=== PATIENT | male | born 1965 | race Caucasian/White ===

== ENCOUNTER 2019-04-08 08:20 | Outpatient (RCR) | payer BC, SELFPAY | END 2019-05-07 | LOC: GILAB 08:20 | PROVIDERS: Family Provider Family Medicine; Visit Provider Nurse Practitioner Family | DX: M86.8X8 Other osteomyelitis, other site (principal) | CPT/HCPCS: 36415; 36592; 80202 ×2; 96365; 96366; J2001; J2250; J2704; J3010; J3370 ×2; J7050 ×2 ==

== ENCOUNTER → 2020-11-19 07:37 | Outpatient (BNVA) | payer BC, SELFPAY | PROVIDERS: Family Provider Family Medicine; PCP Family Medicine; Referring Provider Physician Assistant; Visit Provider Urology | DX: Z12.5 Encounter for screening for malignant neoplasm of prostate (principal); R39.9 Unspecified symptoms and signs involving the genitourinary system | CPT/HCPCS: G0103 ==

== ENCOUNTER → 2021-04-18 15:56 | Outpatient (BNVA) | payer BC, SELFPAY | PROVIDERS: Family Provider Family Medicine; PCP Family Medicine; Visit Provider Podiatrist Foot & Ankle Surgery | DX: M79.673 Pain in unspecified foot (principal); L97.522 Non-pressure chronic ulcer of other part of left foot with fat layer exposed; M21.612 Bunion of left foot | CPT/HCPCS: 73630; 87070; 87075; 87205 ==

== ENCOUNTER → 2021-05-21 15:38 | Outpatient (BNVA) | payer BC, SELFPAY | PROVIDERS: Family Provider Family Medicine; PCP Family Medicine; Visit Provider Podiatrist Foot & Ankle Surgery | DX: E11.621 Type 2 diabetes mellitus with foot ulcer (principal); L97.523 Non-pressure chronic ulcer of other part of left foot with necrosis of muscle; N18.9 Chronic kidney disease, unspecified; E11.22 Type 2 diabetes mellitus with diabetic chronic kidney disease; E11.42 Type 2 diabetes mellitus with diabetic polyneuropathy | CPT/HCPCS: 73630 ==

== ENCOUNTER → 2021-06-04 13:43 | Outpatient (BNVA) | payer BC, SELFPAY | PROVIDERS: Family Provider Family Medicine; PCP Family Medicine; Visit Provider Podiatrist Foot & Ankle Surgery | DX: M79.673 Pain in unspecified foot (principal); L97.522 Non-pressure chronic ulcer of other part of left foot with fat layer exposed; L97.523 Non-pressure chronic ulcer of other part of left foot with necrosis of muscle | CPT/HCPCS: 73630 ==

== ENCOUNTER 2021-06-12 16:46 | Observation (INO) | payer BC, SELFPAY ==
[2021-06-12] VITALS (7 sets, daily range): BP systolic 197–231; BP diastolic 63–78; PULSE 73–97; RESP 14–22; TEMP 36.9; O2SAT 93–95; BMI 42.5
--- NOTE | 2021-06-12 17:39 | ED_ITS ---
HPI - General Adult General: Chief complaint: General Medical Stated complaint: High BP/Rapid Heart Rate Time Seen by Provider: 06/12/21 17:39 History of Present Illness: HPI narrative: Mr. Wagner is a 55-year-old gentleman with history of hypertension and CKD who presents the emergency department due to palpitations and high blood pressure. He reports seeing his primary care provider and had his hydralazine increased from 50 mg 3 times daily to 100 mg 3 times daily. After only 1 or 2 doses of the increased dosage the patient noticed palpitations. This is a fluttering sensation in his chest without associated pain, shortness of breath, lightheadedness, or dizziness. He also noticed that his blood pressure was higher than normal. He again contacted the physician's office and they added minoxidil. Despite this addition he continues to have symptoms. Intensity of symptoms is moderate. There are no specific provoking factors that he can identify. The course has remained largely unchanged. No other specific changes in health, medications, stress, lifestyle, provoking, exacerbating, or alleviating factors identified. Review of Systems General: Reports: 10 or more systems reviewed and unremarkable except in HPI and below PFS ED PFSH: Medical History (Updated 06/15/21 @ 00:01 by ) BPH (benign prostatic hyperplasia) Chronic kidney disease Chronic ulcer of left foot with fat layer exposed CKD (chronic kidney disease) per patient attributed to vancomycin toxicity, no kidney biopsy Diabetes Diabetic peripheral neuropathy associated with type 2 diabetes mellitus HIV disease Hypertension Mixed hyperlipidemia Obesity Surgical History (Updated 06/13/21 @ 06:01 by Magalys Marie MD) S/P ureteral stent placement Family History Father Hypertension Mother Hypertension Brother Cancer NON HODGKINS Other CAD (coronary artery disease) Diabetes Social History Alcohol intake: never Marital status: Current occupational status: employed Physical Exam Narrative: EXAM NARRATIVE: GENERAL/CONSTITUTIONAL - well-appearing. No acute distress. Obese Eyes - PERRL, no conjunctival injection ENMT - Atraumatic external nose and ears. Moist mucous membranes NECK - supple. trachea midline CARDIOVASCULAR - regular rate and rhythm. Peripheral pulses 2+ and equal RESPIRATORY -clear to auscultation bilaterally. No retractions or accessory muscle use. ABDOMEN/GI - Nontender/Nondistended. No tenderness to percussion or evidence of peritonitis MSK - Extremities without obvious deformity or tenderness to palpation SKIN - Warm, Dry NEURO - alert and appropriately oriented. Moves all extremities equally. PSYCH - Appropriate mood and affect Course ED course: - Patient was seen and evaluated by me at bedside - Patient placed on cardiac monitors, IV access obtained - Initial evaluation notable for no acute distress, nontoxic appearance. No ectopy noted on associate store leader. - Labs notable for no evidence of endorgan dysfunction -Despite multiple doses of IV labetalol there was almost no improvement in patient's blood pressure - Upon serial reexamination after treatment the patient was similar - Based on patient history, evaluation, labs, and imaging as interpreted the most likely cause of the patient's condition is unclear. The patient has multi drug refractory hypertension that is now symptomatic with palpitations. -Hospitalist service contacted and agreed admit the patient. - Patient was admitted without further deterioration or significant events. Vital Signs: Vital signs: Vital Signs Temperature 97.9 F 06/14/21 13:03 Pulse Rate 59 L 06/14/21 13:03 Respiratory Rate 19 H 06/14/21 13:03 Blood Pressure 138/54 06/14/21 13:03 Pulse Oximetry 92 06/14/21 13:03 MDM - General Adult Medical Records: Attestation: I reviewed the patient's medical records. Lab Data: Attestation: I reviewed the patient's lab results. Labs: Lab Results 06/12/21 06/12/21 06/12/21 18:25 18:25 18:25 WBC 11.0 10^3/uL H 10 ^3/uL (4.0-10.0) RBC 4.82 10^6/uL 10^6 /uL (4.1-5.3) Hgb 12.2 g/dL g/dL (11.7-16.6) Hct 37.8 % L % (42.0-52.0) MCV 78.4 fl L fl (80-94) MCH 25.3 pg L pg (28.0-34.0) MCHC 32.3 g/dL g/dL (30.0-36.0) RDW 16.3 % H % (12.1-15.1) Plt Count 265 10^3/cmm 10^3 /cmm (130-400) MPV 10.4 fL fL (7.4-10.4) Neut % (Auto) 67.8 % % Lymph % (Auto) 24.3 % % Lane % (Auto) 5.0 % % Eos % (Auto) 2.0 % % Baso % (Auto) 0.3 % % Neut # (Auto) 7.43 10^3/uL 10^3 /uL (1.8-7.7) Lymph # (Auto) 2.7 10^3/uL 10^3/ uL (0.8-4.8) Lane # (Auto) 0.6 10^3/uL 10^3/ uL (0.2-0.9) Eos # (Auto) 0.2 10^3/uL 10^3/ uL (0.0-0.8) Baso # (Auto) 0.0 10^3/uL 10^3/ uL (0.0-0.1) Nucleated RBC % (a uto) 0 % % Nucleated RBCs # 0.0 /100WBC /100W BC Sodium 136 mmol/L mmol/L (136-145) Potassium 4.4 mmol/L mmol/L (3.5-5.1) Chloride 97 mmol/L L mmol/ L (98-107) Carbon Dioxide 27 mmol/L mmol/L (22-29) Anion Gap 16.4 (5-19) BUN 63 mg/dL H mg/dL (6-20) Creatinine 2.9 mg/dL H mg/dL (0.7-1.2) GFR Calculation 22.6 mL/min L mL/ min (90-130) Glucose 206 mg/dL H mg/dL (65-115) Calculated Osmolal ity 306 mOsm/kg H mOs m/kg (285-295) Calcium 9.1 mg/dL mg/dL (8.5-10.5) Magnesium 1.9 mg/dL mg/dL (1.7-2.3) Total Bilirubin 0.6 mg/dL mg/dL (0.15-1.2) AST 12 U/L U/L (0-40) ALT 17 U/L U/L (0-41) Alkaline Phosphata se 87 IU/L IU/L (40-130) Troponin T Baselin e 54 ng/L H ng/L (0-15) Troponin T 120 Min [place] Delta Troponin T Troponin T Hi Sens 6Hr Troponin T Hi Sens 6Hr Delta NT-Pro-B Natriuret Pep 570 pg/mL H pg/mL (0-125) Total Protein 7.4 g/dL g/dL (6.6-8.7) Albumin 4.0 g/dL g/dL (3.5-5.2) Globulin 3.4 g/dL g/dL (1.3-4.6) TSH 3.95 uIU/mL uIU/m L (0.27-4.20) 06/12/21 06/12/21 06/13/21 20:29 21:02 00:12 WBC RBC Hgb Hct MCV MCH MCHC RDW Plt Count MPV Neut % (Auto) Lymph % (Auto) Lane % (Auto) Eos % (Auto) Baso % (Auto) Neut # (Auto) Lymph # (Auto) Lane # (Auto) Eos # (Auto) Baso # (Auto) Nucleated RBC % (a uto) Nucleated RBCs # Sodium Potassium Chloride Carbon Dioxide Anion Gap BUN Creatinine GFR Calculation Glucose Calculated Osmolal ity Calcium Magnesium Total Bilirubin AST ALT Alkaline Phosphata se Troponin T Baselin e Troponin T 120 Min [place] Cancelled 53.47 ng/L H ng/L (0-15) Delta Troponin T Cancelled -0.53 ABS# L ABS# (0-10) Troponin T Hi Sens 6Hr 48.77 ng/L H ng/L (0-15) Troponin T Hi Sens 6Hr Delta -5.23 ng/L L ng/L (0-12) NT-Pro-B Natriuret Pep Total Protein Albumin Globulin TSH EKG Data^: EKG 1: Attestation: I personally reviewed and interpreted this EKG as follows: EKG interpretation date: 06/12/21 EKG interpretation time: 18:23 Interpretation: Twelve-lead EKG shows a regular rhythm at a rate of 84 WA interval 157, QRS duration 96, QTc 407 Normal axis Interpretation: Sinus rhythm, nonspecific ST segment abnormalities. Computer generated interpretation: Chest X-Ray 06/12/21 17:52 IMPRESSION: No acute findings. Radiation Dose CTDIVOL = (mGy): DLP = (mGy-cm) EKG 2: Attestation: I personally reviewed and interpreted this EKG as follows: EKG interpretation date: 06/12/21 EKG interpretation time: 22:33 Interpretation: Twelve-lead EKG shows a regular sinus rhythm at a rate of 77 WA interval 172, QRS duration 97, QTc 408. Normal axis. Interpretation: Sinus rhythm. Nonspecific ST segment abnormalities. Similar to prior. Computer generated interpretation: Chest X-Ray 06/12/21 17:52 IMPRESSION: No acute findings. Radiation Dose CTDIVOL = (mGy): DLP = (mGy-cm) Discharge Plan Discharge Patient Disposition: Admitted As Inpatient Admit Provider: Magalys Marie Condition: Stable Discharge Diet: Cardiac and Diabetic Discharge Activity: Increase activity as tolerated Coding Level of Care Code ED Delivery Truck Driver for Sulemang Dejon
--- NOTE | 2021-06-12 17:52 | XRR_ITS ---
PROCEDURE INFORMATION: Exam: XR Chest Exam date and time: 06/12/2021 5:52 PM Age: 55 years old Clinical indication: Tachypnea; Additional info: Palpatations TECHNIQUE: Imaging protocol: XR of the chest. Views: 1 view. COMPARISON: CT abdomen pelvis wo con [id number] 08/16/2019 4:14 PM FINDINGS: Lungs: Unremarkable. No consolidation. Pleural spaces: Unremarkable. No pleural effusion. No pneumothorax. Heart/Mediastinum: Unremarkable. No cardiomegaly. Bones/joints: Unremarkable. XR/XR chest 1V portable [id number] IMPRESSION: No acute findings. Radiation Dose CTDIVOL = (mGy): DLP = (mGy-cm)
--- NOTE | 2021-06-12 17:53 | ECG_ITS ---
[facility] Test Date: 2021-06-12 Pat Name: Say Wagner Department: Room: Gender: Male Medical Lab Director: : 1965 Requested By: Erik Patten Order Number: [id number] Beckie MD: Qi Dyson M.D. Measurements Intervals [place] Rate: 84 P: 56 MA: 157 QRS: 69 QRSD: 96 T: 20 QT: 366 QTc: 433 Interpretive Statements SINUS RHYTHM INCOMPLETE RIGHT BUNDLE BRANCH BLOCK [90+ ms QRS DURATION, TERMINAL R IN V1/V2, 40+ ms S IN I/aVL/V4/V5/V6] Compared to ECG 03/19/2019 18:00:15 Incomplete right bundle-branch block now present Sinus bradycardia no longer present T-wave abnormality no longer present Possible ischemia no longer present Electronically Signed On 06-12-2021 23:02:52 CDT by Qi Dyson M.D. [id number]
[2021-06-12] MEDS: labetalol 5 mg/mL SDV 20mL 10 MG IVP ×3 (18:54→22:45)
[2021-06-12 19:03] LABS: Basophils % 0.3 %; Eosinophils # 0.2 10^3/uL (0.0-0.8); Hematocrit 37.8 % (42.0-52.0); Hemoglobin 12.2 g/dL (11.7-16.6); Lymphocytes # 2.7 10^3/uL (0.8-4.8); Lymphocytes % 24.3 %; Mean Corpuscular HGB Conc 32.3 g/dL (30.0-36.0); Mean Corpuscular Hemoglobin 25.3 pg (28.0-34.0); Mean Corpuscular Volume 78.4 fl (80-94); Mean Platelet Volume 10.4 fL (7.4-10.4); Monocytes # 0.6 10^3/uL (0.2-0.9); Neutrophils # 7.43 10^3/uL (1.8-7.7); Neutrophils % 67.8 %; Nucleated Red Blood Cells % 0 %; Platelet Count 265 10^3/cmm (130-400); Red Blood Count 4.82 10^6/uL (4.1-5.3); Red Cell Distribution Width 16.3 % (12.1-15.1)
[2021-06-12 19:30] LABS: Troponin(5th) Baseline 54 ng/L (0-15)
[2021-06-12 19:36] LABS: Alanine Aminotransferase 17 U/L (0-41); Alkaline Phosphatase 87 IU/L (40-130); Anion Gap 16.4 (5-19); Aspartate Amino Transferase 12 U/L (0-40); Blood Urea Nitrogen 63 mg/dL (6-20); Calcium 9.1 mg/dL (8.5-10.5); Carbon Dioxide 27 mmol/L (22-29); Chloride 97 mmol/L (98-107); Globulin 3.4 g/dL (1.3-4.6); Glomerular Filtration Rate 22.6 mL/min (90-130); Glucose 206 mg/dL (65-115); Magnesium 1.9 mg/dL (1.7-2.3); Osmolality Calculated 306 mOsm/kg (285-295); Potassium 4.4 mmol/L (3.5-5.1); Sodium 136 mmol/L (136-145); Total Bilirubin 0.6 mg/dL (0.15-1.2); Total Protein 7.4 g/dL (6.6-8.7)
[2021-06-12 19:42] LABS: NT Pro B Type Natriuretic Pept 570 pg/mL (0-125); Thyroid Stimulating Hormone 3.95 uIU/mL (0.27-4.20)
--- NOTE | 2021-06-12 19:53 | ECG_ITS ---
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 Measurements Intervals [place] Rate: 86 P: 47 WV: 132 QRS: 53 QRSD: 98 T: 18 QT: 360 QTc: 433 Interpretive Statements SINUS RHYTHM INCOMPLETE RIGHT BUNDLE BRANCH BLOCK [90+ ms QRS DURATION, TERMINAL R IN V1/V2, 40+ ms S IN I/aVL/V4/V5/V6] Poor R wave progression INTERPRETATION BASED ON A DEFAULT AGE OF 40 YEARS Compared to ECG 03/19/2019 18:00:15 Incomplete right bundle-branch block now present Sinus bradycardia no longer present T-wave abnormality no longer present Possible ischemia no longer present Electronically Signed On 06-12-2021 23:07:57 CDT by Qi Dyson M.D. [id number]
[2021-06-12 21:41] LABS: Troponin 5 2HR 53.47 ng/L (0-15)
[2021-06-12 21:50] LABS: Troponin 5 2HR Delta -0.53 ABS# (0-10)
--- NOTE | 2021-06-12 23:53 | ECG_ITS ---
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 Measurements Intervals [place] Rate: 77 P: 12 HI: 172 QRS: 68 QRSD: 97 T: 13 QT: 376 QTc: 427 Interpretive Statements SINUS RHYTHM INCOMPLETE RIGHT BUNDLE BRANCH BLOCK [90+ ms QRS DURATION, TERMINAL R IN V1/V2, 40+ ms S IN I/aVL/V4/V5/V6] Compared to ECG 06/12/2021 18:20:37 No significant changes Electronically Signed On 06-12-2021 23:10:18 CDT by Qi Dyson M.D. [id number]
[2021-06-13] VITALS (55 sets, daily range): BP systolic 151–226; BP diastolic 61–93; PULSE 55–81; RESP 16–22; TEMP 36.3–36.9; O2SAT 88–97
[2021-06-13] MEDS: nitroglycerin 1 gm/inch oint Pkt 1 INCH TOPICAL (00:19)
--- NOTE | 2021-06-13 00:27 | PM.HP ---
Providers/Chief Complaint Admitting Physician: Magalys Marie MD Primary Care Provider: John Hernandez DO Chief Complaint: High BP/Rapid Heart Rate History of Present Illness Say Wagner is a 55 year old male with PMH HIV, undetectable VL, HTN, DM, CKD, cr at baseline 2.9, follows with nephrology KEVIN Kat at [facility]. Presented to ER yesterday after being sent from podiatry clinic (following for diabetic left foot) where he was noted to have persistently elevated BP >212 sytolic. At ER SBP continued to be 210-230 systolic range. He also reported palpitations and vague chest discomfort with onset of symptoms approximately 10-14 days ago when his medications were changed due to uncontrolled HTN. Hydralazine was increased from 50mg TID to 100mg TID 2 weeks ago and po minoxidil was added one week ago for refractory HTN. Denies chest pain per se but reports some discomfort and palpitations. EKG is with sinus rhythm with incomplete RBBB, EKG series without significant delta. He has received labetalol 10mg IVP x 3 in ED without any improvement in BP. Review of Systems General: Reports: 10 or more systems reviewed and unremarkable except in HPI and below Const: Denies: fever(s), chills or body aches Eyes: Denies: change in vision, blurry vision or photophobia ENMT: Reports: hoarseness; Denies: throat pain, enlarged tonsils, odynophagia or nasal congestion Card: Denies: chest pain, palpitations, irregular heart rhythm, edema, swelling of feet/ankles, lightheadedness, pre-syncope, dyspnea on exertion or orthopnea Resp: Denies: dyspnea, productive cough, non-productive cough, wheezing, stridor, pain on inspiration, change in phlegm color, hemoptysis or chest congestion GI: Denies: abdominal pain, nausea, vomiting, hematemesis, coffee ground emesis, dysphagia, heartburn, diarrhea, constipation, GI cramping, change in stool character, hematochezia or melena : Denies: flank pain, dysuria, urinary frequency, urinary urgency, urinary hesitancy or hematuria Musc: Denies: neck pain, back pain, extremity pain, joint swelling, joint warmth or deformity Neuro: Denies: headache(s), numbness in extremities, weakness in extremities, sensory changes, difficulty walking, frequent falls, dizziness, vertigo, behavioral changes, Slurred speech present or seizure-like activity Psych: Denies: anxiety, depression, suicidal ideation or homicidal ideation Endo: Denies: polyuria, polydipsia, tired all the time, cold intolerance or hot flashes Misael/Lymph: Denies: easy bruising or easy bleeding Medications/Allergies Home Medications Medication Instructions Recorded Confirmed Last Taken Type amlodipine 10 mg tablet 10 mg PO DAILY 11/19/20 06/12/21 Unknown History bictegravir 50 mg-emtricitabine 1 tab PO DAILY 11/19/20 06/12/21 Unknown History 200 mg-tenofovir alafenam 25 mg tablet cholecalciferol (vitamin D3) 125 125 mcg PO BID cap 11/19/20 06/12/21 Unknown History mcg (5,000 unit) capsule clonidine HCl 0.3 mg tablet 0.3 mg PO BID 11/19/20 06/12/21 Unknown History ferrous sulfate 325 mg (65 mg 27 mg PO DAILY tab 11/19/20 06/12/21 Unknown History iron) tablet furosemide 80 mg tablet 80 mg PO BID 11/19/20 06/12/21 Unknown History insulin detemir U-100 100 unit/mL 100 unit SUBCUT DAILY 11/19/20 06/12/21 Unknown History (3 mL) subcutaneous pen metoprolol tartrate 50 mg tablet 50 mg PO BID 11/19/20 06/12/21 Unknown History potassium chloride 10 mEq 10 meq PO DAILY 11/19/20 06/12/21 Unknown History tablet,extended release tamsulosin 0.4 mg capsule 0.4 mg PO DAILY 11/19/20 06/12/21 Unknown History hydralazine 25 mg tablet 100 mg PO TID tab 06/12/21 06/12/21 Unknown History minoxidil 10 mg tablet 5 mg PO DAILY 06/12/21 06/12/21 Unknown History Allergies Allergy/AdvReac Type Severity Reaction Status Date / Time No Known Allergies Allergy Verified 06/12/21 15:59 PFSH Acute PFSH: Medical History (Updated 06/13/21 @ 06:07 by Magalys Marie MD) BPH (benign prostatic hyperplasia) CKD (chronic kidney disease) per patient attributed to vancomycin toxicity, no kidney biopsy Diabetes HIV disease Hypertension Mixed hyperlipidemia Obesity Surgical History (Updated 06/13/21 @ 06:01 by Magalys Marie MD) S/P ureteral stent placement Family History Father Hypertension Mother Hypertension Brother Cancer NON HODGKINS Other CAD (coronary artery disease) Diabetes Social History Alcohol intake: never Marital status: Current occupational status: employed Vitals/I&O/Wt Last Vital Signs Temp 98.4 F 06/12/21 16:51 Pulse 76 06/12/21 22:30 Resp 22 H 06/12/21 22:30 BP 217/78 06/12/21 23:30 Pulse Ox 95 06/12/21 22:30 Weight last 48 hrs Weight 158.757 kg Physical Exam Narrative: EXAM NARRATIVE: General: No acute distress, AO x3 HEENT: PERRLA, pupils bilaterally equal and reactive, pallors not present Chest: Normal vesicular breath sounds, no added sounds, equal good air entry bilaterally CVS: S1-S2 regular, no murmurs, no tachycardia, no gallops, no rubs Abdomen: Soft, nontender, no organomegaly, bowel sounds present Neuro: No focal deficits, no facial deformity, AO x3, power 5/5 in all limbs Extremities: left foot in cam boot, not opened for exam, compression stocking on right leg Data : 06/12/21 18:25 06/12/21 18:25 A&P Assessment and plan (1) Hypertensive urgency: admit to CSU for hypertensive urgency no change in BP with labetalol 10mg IVP x 3 will start hydralaine 50mg now, metoprolol 50mg now, add nitrobid 1inch patch q6h If above measures fail to control BP, jose r start nicardipine drip Home medications will need readjustment Stop minoxidil, which can precipitate angina, pericarditis, volume overload Continue amlodipine 10, hydralazine at last tolerated dose of 50mg TID, metoprolol 50mg BID, clonidine 0.3mg BID, lasix 80mg BID, ADD imdur 30mg daily, latter can be titrated up depending on BP response. Status: Acute (2) Chronic kidney disease: cr at baseline Status: Acute Qualifiers: Chronic kidney disease stage: unspecified stage Qualified Code(s): N18.9 - Chronic kidney disease, unspecified Additional A&P Information HIV: continue Biktarvy Attestations Medical Necessity Statement*: observation admission, anticipate less than 48 hrs hospital stay Coding Level of Care Code Acute Senior Data Architect for g Fwd Diagnoses Hypertensive urgency I16.0 Chronic kidney disease N18.9 Chronic kidney disease stage: unspecified stage
[2021-06-13 00:38] LABS: Troponin 5 6HR 48.77 ng/L (0-15)
[2021-06-13 00:39] LABS: Troponin 5 6HR Delta -5.23 ng/L (0-12)
[2021-06-13] MEDS: metoprolol tartrate 50 mg Tablet PO ×2 (01:16→08:11)
[2021-06-13] MEDS: hyDRALAzine 50 mg Tablet PO ×4 (01:17→20:31)
[2021-06-13] MEDS: BIKTARVY 1 EACH PO ×2 (01:45→20:48)
[2021-06-13] MEDS: isosorbide mononitrate ER 30 mg Tablet PO (06:05)
[2021-06-13 06:31] LABS: Glucose Point of Care 80 mg/dL (70-110)
[2021-06-13] MEDS: FUROsemide 40 mg Tablet 80 MG PO ×2 (08:03→17:47)
[2021-06-13] MEDS: cloNIDine 0.1 mg Tablet 0.3 MG PO ×2 (08:03→17:46)
[2021-06-13] MEDS: tamsulosin 0.4 mg Capsule PO (08:04)
[2021-06-13] MEDS: amlodipine 10 mg Tablet PO (08:04)
--- NOTE | 2021-06-13 08:16 | PC.NURSE ---
Call placed to Dr. Hart regarding new order for IV hydrazine. Reported that I was preparing to give patient oral meds for BP (clonidine, amlodipine,metoprolol,hydralazine). Dr. Hart stated give oral meds, recheck BP if still elevated then give IV hydralazine in an hour.
[2021-06-13] MEDS: hyDRALAzine 20 mg/mL INJ 1 mL IVP (09:01)
--- NOTE | 2021-06-13 09:47 | PC.PHAR ---
PT STATES HE TAKES CARE OF HIS OWN MEDICATIONS-PT STATES HIS KCL WAS DCED A MONTH AGO-PT STATES HE JUST STARTED TAKING MINOXIDIL 5MG DAILY ON THU OR -EXT MED HISTORY SHOWS LEVEMIR FLEXTOUCH LAST FILLED ON 05/29/21 100 UNITS QPM INCREASE NIGHTLY BY 5 UNITS UNTIL FASTING BLOOD SUGAR LESS THAN 150 INJECT 80 UNITS Q AM MAX OF 350 UNITS DAILY-PT STATE HE USES 80 UNITS QAM AND USUALLY 160 UNITS QPM-CLONIDINE 0.3MG FILLED ON 05/27/21 90D/S FOR 2 TABS BID PT STATES HE TAKES 1 TAB IN THE AM AND 2 TABS IN THE PM-
--- NOTE | 2021-06-13 10:24 | PC.CHAP ---
Pastoral Care Encounter/Spiritual Assessment Type of Contact [x] Declined air traffic control equipment repairer visit [] Patient/Family/Request visit [] Outpatient visit [] Follow-up visit [] Physician referral [] Code/Alert [] Routine visit [] Staff referral [] Actively dying [] Patient sleeping [] Family support [] [] Out of room [] Palliative care [] [] Receiving care in room [] Pre-surgical visit [] Trauma [] Long length of stay [] ICU visit [] Other: Relational/Emotional Strength [] Patient feels connected with others/family/visitors/staff [] Distress [] Loneliness/isolation [] Abandonment Spirituality of Patient [] Person of Samantha [] Attends Mormonism of their Samantha [] Believes in Prayer [] Reads Bible or Orthodoxy materials [] There are Spiritual issues to be addressed Shipping Order Clerk Interventions [] Prayer [] Active listening [] Non-anxious presence [] Spiritual/emotional support [] Crisis/trauma care [] Spiritual counseling [] Bereavement support [] Provided bereavement packet [] Provided Bible/devotional materials [] Provided toy/stuffed animal, coloring book to patient or family member [] Provided Communion [] Anointing/Alpha [] Salvation [] Completed spiritual assessment [] Other: Impact on Illness or Injury [] Angry [] Fearful [] Anxious [] Often cries [] Exhaustion [] Unable to work [] Unable to attend mosque [] Unable to walk/stand [] Unable to read [] Unable to drive [] Unable to eat/drink [] Unable to sleep [] Unable to be with family [] Patient intubated [] Other: Summary Declined air traffic control equipment repairer visit Time spent with patient
--- NOTE | 2021-06-13 11:06 | PM.PN ---
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 Patient is stating that he was put on vancomycin for his diabetic foot ulcer management which worsen his kidney function with underlying diabetes Vitals/I&O/Wt Last Vital Signs Temp 97.6 F 06/13/21 07:21 Pulse 77 06/13/21 08:50 Resp 16 06/13/21 07:21 BP 226/90 06/13/21 08:50 Pulse Ox 92 06/13/21 07:21 06/12/21 06/13/21 06/13/21 22:59 06:59 14:59 Intake Total 1000 / 1000 Output Total 800 / 800 Balance 200 / 200 Weight last 48 hrs Weight 172.819 kg Weight 158.757 kg Physical Exam Narrative: EXAM NARRATIVE: Patient was laying comfortably in his bed when entered the room Morbidly obese male S1, S2 sinus rhythm No audible stridor or wheezing saturating well on room air Abdomen soft nondistended visceral obesity Left foot diabetic ulcer with clean base no active signs of cellulitis, borders of the wound are moist and macerated dressing was soaked with mild yellow discharge No signs of gangrene or cyanosis Awake alert Ox3 GCS 15 no neurological deficit Data : 06/12/21 18:25 06/12/21 18:25 A&P Assessment and plan (1) Hypertensive urgency: Status: Acute (2) Chronic kidney disease: Status: Acute Qualifiers: Chronic kidney disease stage: unspecified stage Qualified Code(s): N18.9 - Chronic kidney disease, unspecified (3) Diabetic peripheral neuropathy associated with type 2 diabetes mellitus: Status: Acute (4) Palpitations: Status: Acute Additional A&P Information Hypertensive urgency Creatinine seems to around baseline No chest pain Baseline troponin 54 with negative delta BNP 570 no vision changes or signs of stroke TSH 3.9 Nitropaste was removed this morning Optimize antihypertensive regimens, avoid minoxidil for now Palpitations: Patient endorsing that palpitations started with increase of hydralazine dosage which was done recently, I will hold off on increasing hydralazine dose which is also a reflex tachycardia, patient does not exhibit any typical signs of carcinoid or pheochromocytoma, does have outpatient final application reviewer, potassium is within normal range, TSH normal No active chest pain Sinus rhythm I would optimize his AV daxa blocking agent HIV: Continue HIV medication Biktarvy Full code Cardiac diet DVT prophylaxis Heparin Attestations Medical Necessity Statement*: Anticipating discharge tomorrow Time Spent in Patient Care: 16 - 35 minutes Coding Level of Care Code Acute Expeller Operator for g Fwd Diagnoses Hypertensive urgency I16.0 Chronic kidney disease N18.9 Chronic kidney disease stage: unspecified stage Diabetic peripheral neuropathy associated with type 2 diabetes mellitus E11.42 Palpitations R00.2
[2021-06-13 16:42] LABS: Glucose Point of Care 254 mg/dL (70-110)
--- NOTE | 2021-06-13 16:45 | PM.PN ---
Subjective Subjective: Interval history: Patient seen bedside for dressing change left foot ulcer. Vitals/I&O/Wt Last Vital Signs Temp 97.6 F 06/13/21 07:21 Pulse 69 06/13/21 10:30 Resp 16 06/13/21 07:21 BP 169/72 06/13/21 10:30 Pulse Ox 92 06/13/21 07:21 06/13/21 06/13/21 06/13/21 06:59 14:59 22:59 Intake Total 1000 / 1000 Output Total 800 / 800 Balance 200 / 200 Weight last 48 hrs Weight 381 lb Weight 350 lb Physical Exam Narrative: EXAM NARRATIVE: Patient is alert and oriented ?3 and in no acute distress. The following is a focused bilateral lower extremity exam. Ambulates without assistance. VASCULAR: Dorsalis pedis palpable +2 bilaterally, posterior tibial arteries +2. Capillary refill time less than 3 seconds to the distal hallux bilaterally. Calf is supple and nontender proximally and distally. NEUROLOGICAL: Protective sensation intact 0/10 sites, tested with [place] Nidia monofilament to bilateral feet. DERMATOLOGICAL: Wound subfifth metatarsal head left foot measures 2 cm x 2 cm x 0.2 cm with macerated hyperkeratotic roof and room and fibrogranular base does not probe to bone. No erythema or purulence. Does not probe to bone. MUSCULOSKELETAL: Ankle joint dorsiflexion to neutral. Muscle strength 5/5 in all 3 cardinal planes, tailor's bunion bilaterally. Data : 06/12/21 18:25 06/12/21 18:25 A&P Assessment and plan (1) Chronic kidney disease: Status: Acute Qualifiers: Chronic kidney disease stage: unspecified stage Qualified Code(s): N18.9 - Chronic kidney disease, unspecified (2) Diabetic peripheral neuropathy associated with type 2 diabetes mellitus: Status: Acute (3) Chronic ulcer of left foot with fat layer exposed: Status: Acute Additional A&P Information Wound left foot excisionally debrided down to including subcutaneous tissue and fat layer no anesthesia required secondary to neuropathy hemostasis via manual pressure, dressed with Mary, sterile 4 x 4, Kerlix and Justus wrap. Will redress tomorrow. Attestations Medical Necessity Statement*: Diabetic foot ulcer left foot Coding Level of Care Code Acute Microsoft Dynamics Manager Architect for [facility] Diagnoses Chronic kidney disease N18.9 Chronic kidney disease stage: unspecified stage Diabetic peripheral neuropathy associated with type 2 diabetes mellitus E11.42 Chronic ulcer of left foot with fat layer exposed L97.207
[2021-06-13 20:14] LABS: Glucose Point of Care 271 mg/dL (70-110)
[2021-06-13] MEDS: metoprolol tartrate 50 mg Tablet 100 MG PO (20:31)
[2021-06-14] VITALS (15 sets, daily range): BP systolic 138–203; BP diastolic 54–89; PULSE 55–69; RESP 18–19; TEMP 36.6–36.7; O2SAT 91–97
[2021-06-14 05:34] LABS: Estmated Average Glucose 249; Hemoglobin A1C 10.3 % (4.0-6.0)
[2021-06-14 05:46] LABS: Anion Gap 13.3 (5-19); Blood Urea Nitrogen 60 mg/dL (6-20); Carbon Dioxide 27 mmol/L (22-29); Chloride 102 mmol/L (98-107); Glomerular Filtration Rate 20.9 mL/min (90-130); Glucose 148 mg/dL (65-115); Osmolality Calculated 306 mOsm/kg (285-295); Potassium 4.3 mmol/L (3.5-5.1); Sodium 138 mmol/L (136-145)
[2021-06-14 06:51] LABS: Glucose Point of Care 103 mg/dL (70-110)
[2021-06-14] MEDS: tamsulosin 0.4 mg Capsule PO (08:25)
[2021-06-14] MEDS: isosorbide mononitrate ER 30 mg Tablet 60 MG PO (08:25)
[2021-06-14] MEDS: amlodipine 10 mg Tablet PO (08:26)
[2021-06-14] MEDS: acetaminophen 325 mg Tablet 650 MG PO (08:28)
[2021-06-14] MEDS: FUROsemide 40 mg Tablet 80 MG PO (08:29)
[2021-06-14] MEDS: cloNIDine 0.1 mg Tablet 0.3 MG PO (08:40)
[2021-06-14] MEDS: hyDRALAzine 50 mg Tablet PO (08:40)
[2021-06-14] MEDS: metoprolol tartrate 50 mg Tablet 100 MG PO (08:40)
[2021-06-14] MEDS: dilTIAZem ER (24HR) 120 mg Capsule PO (10:09)
--- NOTE | 2021-06-14 10:40 | PC.CHAP ---
Pastoral Care Encounter/Spiritual Assessment Type of Contact [] Declined reel assembler visit [] Patient/Family/Request visit [] Outpatient visit [] Follow-up visit [] Physician referral [] Code/Alert [x] Routine visit [] Staff referral [] Actively dying [] Patient sleeping [] Family support [] [] Out of room [] Palliative care [] [] Receiving care in room [] Pre-surgical visit [] Trauma [] Long length of stay [] ICU visit [] Other: Relational/Emotional Strength [] Patient feels connected with others/family/visitors/staff [] Distress [] Loneliness/isolation [] Abandonment Spirituality of Patient [] Person of Samantha [] Attends Presybeterian of their Samantha [] Believes in Prayer [] Reads Bible or Episcopalian materials [] There are Spiritual issues to be addressed Specialty Person Interventions [x] Prayer [x] Active listening [x] Non-anxious presence [x] Spiritual/emotional support [] Crisis/trauma care [] Spiritual counseling [] Bereavement support [] Provided bereavement packet [] Provided Bible/devotional materials [] Provided toy/stuffed animal, coloring book to patient or family member [] Provided Communion [] Anointing/[place] [] Salvation [x] Completed spiritual assessment [] Other: Impact on Illness or Injury [] Angry [] Fearful [] Anxious [] Often cries [] Exhaustion [] Unable to work [] Unable to attend caodaism [] Unable to walk/stand [] Unable to read [] Unable to drive [] Unable to eat/drink [] Unable to sleep [] Unable to be with family [] Patient intubated [] Other: Summary needing solution to issues.. waiting on doctor for more information Time spent with patient 5 min
--- NOTE | 2021-06-14 11:16 | P.DS_ITS ---
Discharge Providers Date of Admission: 06/13/21 00:17 Date of Discharge: June 14, 2021 Attending Provider at Admission: Magalys Marie MD Attending Provider at Discharge: Mt Hart MD Primary Care Provider: John Hernandez DO Diagnoses at Discharge Discharge Diagnosis (1) Chronic kidney disease: Status: Acute Qualifiers: Chronic kidney disease stage: unspecified stage Qualified Code(s): N18.9 - Chronic kidney disease, unspecified (2) Diabetic peripheral neuropathy associated with type 2 diabetes mellitus: Status: Acute (3) Chronic ulcer of left foot with fat layer exposed: Status: Acute Reason for Visit Reason for Visit: High BP/Rapid Heart Rate Hospital Course Hospital Course History of Present Illness Dr. Marie Say Wagner is a 55 year old male with PMH HIV, undetectable VL, HTN, DM, CKD, cr at baseline 2.9, follows with nephrology KEVIN Kat at [facility]. Presented to ER yesterday after being sent from podiatry clinic (following for diabetic left foot) where he was noted to have persistently elevated BP >212 sytolic. At ER SBP continued to be 210-230 systolic range. He also reported palpitations and vague chest discomfort with onset of symptoms approximately 10-14 days ago when his medications were changed due to uncontrolled HTN. Hydralazine was increased from 50mg TID to 100mg TID 2 weeks ago and po minoxidil was added one week ago for refractory HTN. Denies chest pain per se but reports some discomfort and palpitations. EKG is with sinus rhythm with incomplete RBBB, EKG series without significant delta. He has received labetalol 10mg IVP x 3 in ED without any improvement in BP Hospital course Patient was seen as follow-up next day, his antihypertensive regimen was optimized, he did not require any gtt for blood pressure control. I did tell the nurse to use cuff size 12 instead of 11 because of his arm size. Patient stated that specifically he gets palpitations whenever he takes hydralazine and recently his hydralazine dose was increased. At the time of discharge she will get clonidine, hydralazine, metoprolol, Cardizem and Lasix. Please see below for the dosages. At the time of discharge blood pressure 138/54mmhg I have asked him to follow-up with his elevator constructor helper for reevaluation regarding worsening kidney function. For his left-sided diabetic foot ulcer Dr. lEaine evaluated him as well. He recommended outpatient follow-up no need of antibiotics. He recently finished antibiotic course few days ago. Physical Exam Narrative: EXAM NARRATIVE: Patient was laying comfortably in his bed when entered the room Morbidly obese male S1, S2 sinus rhythm No audible stridor or wheezing saturating well on room air Abdomen soft nondistended visceral obesity Left foot diabetic ulcer with clean base no active signs of cellulitis, borders of the wound are moist and macerated dressing was soaked with mild yellow discharge, Wound subfifth metatarsal head left foot measures 2 cm x 2 cm x 0.2 cm with macerated hyperkeratotic roof and room and fibrogranular base does not probe to bone. No erythema or purulence. Does not probe to bone. No signs of gangrene or cyanosis Awake alert Ox3 GCS 15 no neurological deficit Discharge Data Data Completed and Pending: Completed Studies During Hospitalization Category Date Time Status XR chest 1V emerson ble [id number] Urgent Exams 06/12/21 17:52 Completed Labs from last 24 hours 06/14/21 06/14/21 06/14/21 06:47 04:30 04:30 Sodium 138 Potassium 4.3 Chloride 102 Carbon Dioxide 27 Anion Gap 13.3 BUN 60 H Creatinine 3.1 H GFR Calculation 20.9 L Glucose 148 H POC Glucose 103 Estimat Average Gl ucose 249 Hemoglobin A1c 10.3 H Calculated Osmolal ity 306 H Calcium 8.0 L 06/13/21 06/13/21 20:07 16:35 Sodium Potassium Chloride Carbon Dioxide Anion Gap BUN Creatinine GFR Calculation Glucose POC Glucose 271 H 254 H Estimat Average Gl ucose Hemoglobin A1c Calculated Osmolal ity Calcium Vitals: Last Vital Signs Temp 98.1 F 06/14/21 04:07 Pulse 69 06/14/21 09:27 Resp 18 06/14/21 04:07 BP 200/89 06/14/21 09:27 Pulse Ox 91 06/14/21 09:27 Discharge Plan Discharge Patient Disposition: Home Condition: Stable Prescriptions: New clonidine HCl 0.1 mg Tablet 0.3 mg PO BID 30 Days Qty: 180 RF: 0 metoprolol tartrate 50 mg Tablet 100 mg PO BID@0900,2100 30 Days Qty: 60 RF: 0 diltiazem HCl 120 mg Capsule,Extended Release 24hr 120 mg PO DAILY 30 Days Qty: 30 RF: 0 hydralazine 50 mg Tablet 50 mg PO TID 30 Days Qty: 90 RF: 0 Continued ferrous sulfate [FeroSul] 325 mg (65 mg iron) tablet 325 mg PO QAM RF: 0 cholecalciferol (vitamin D3) 125 mcg (5,000 unit) capsule 125 mcg PO BID RF: 0 Biktarvy 50-200-25 mg tablet 1 tab PO BEDTIME RF: 0 tamsulosin 0.4 mg capsule 0.8 mg PO QPM RF: 0 calcitriol 0.25 mcg capsule 0.25 mcg PO Q7D RF: 0 Levemir FlexTouch U-100 Insuln 100 unit/mL (3 mL) insulin pen See Rx Instructions .ROUTE .COMPLEX RF: 0 Tart Tamayo 57-437-06-75-20 mg Capsule 2 cap PO BID RF: 0 Kidney Builder 2 tab PO BID RF: 0 furosemide 80 mg tablet 80 mg PO BID 30 Days Qty: 60 RF: 0 Discontinued metoprolol tartrate 50 mg tablet 50 mg PO BID RF: 0 clonidine HCl 0.3 mg tablet See Rx Instructions .ROUTE .COMPLEX RF: 0 amlodipine 10 mg tablet 10 mg PO QAM RF: 0 hydralazine 25 mg tablet 100 mg PO TID RF: 0 minoxidil 10 mg tablet 5 mg PO DAILY RF: 0 Discharge Orders: Discharge Order (Routine); Ordered 06/14/21 Ordered By: Mt Hart Referrals: John Hernandez, [Primary Care Provider] - 1 week (You have a follow-up appointment with Dr. Hernandez on JUNE 21 at 10:10 AM. IF you need to reschedule please call the clinic. Thank You.) Discharge Diet: Cardiac and Diabetic Discharge Activity: Increase activity as tolerated Patient Instructions: Diltiazem (By mouth), Chronic Kidney Disease (DC), Hypertension (DC), Opioid Safety, Wound Care (General) Activity Restrictions/Additional Instructions: Please keep using hydralazine 50 mg 3 times a day, metoprolol 100 mg twice a day along clonidine 0.3 mg twice a day and diltiazem 120 mg once daily on top of this you are also getting Lasix 80 mg twice a day If your blood pressure stays above 150 mmHg consistently despite all these medications please follow-up with your elevator constructor helper I have held your minoxidil and amlodipine Please use blood pressure cuff size 12 Wound Care instructtions per to dressed with Mary, sterile 4 x 4, Kerlix and Justus wrap once a day. Will follow-up with him on Thursday. Discharge Attestations Time Spent in Discharge Care*: less than 30 min Quality Metrics Clinical Quality Measures During this hospital stay, did patient experience: None Coding Level of Care Code Acute [facility] note Diagnoses Chronic kidney disease N18.9 Chronic kidney disease stage: unspecified stage Diabetic peripheral neuropathy associated with type 2 diabetes mellitus E11.42 Chronic ulcer of left foot with fat layer exposed L97.522
[2021-06-14 11:39] LABS: Glucose Point of Care 231 mg/dL (70-110)
--- NOTE | 2021-06-14 13:00 | PC.NURSE ---
Discharge Note Patient discharged to home via wheelchair accompanied by . Discharge instructions reviewed with patient and/or parts counter representative. Mobile pharmacy medications and/or prescriptions provided. Belongings/home medications returned. Instructed to check BP and HR everyday at home as well as his blood sugar and keep a record of it. Instructed pt to call 911 or come back to ER when there is an increase headache, slurred speech and weakness to other side of his body. Pt verbalizes understanding.
--- NOTE | 2021-06-19 09:26 | PC.SOCIAL ---
discharge follow up call made, spoke with patient. patient is taking new medications as prescribed. patient is aware of follow up appointment with pcp. unable to complete follow up call due to patient being agitated with call.
== END 2021-06-14 14:00 | disposition home or self-care (01) ==
LOC: ER 23:54 → CSU 06-13 07:41
PROVIDERS: Admitting Provider Student in an Organized Health Care Education/Training Program; Emergency Provider Emergency Medicine; PCP Family Medicine; Visit Provider Internal Medicine
DX: E11.22 Type 2 diabetes mellitus with diabetic chronic kidney disease (principal); I12.9 Hypertensive chronic kidney disease with stage 1 through stage 4 chronic kidney disease, or unspecified chronic kidney disease; N18.9 Chronic kidney disease, unspecified; E11.42 Type 2 diabetes mellitus with diabetic polyneuropathy; L97.522 Non-pressure chronic ulcer of other part of left foot with fat layer exposed; E11.621 Type 2 diabetes mellitus with foot ulcer; Z21 Asymptomatic human immunodeficiency virus [HIV] infection status; E66.01 Morbid (severe) obesity due to excess calories; Z68.42 Body mass index [BMI] 45.0-49.9, adult; Z79.4 Long term (current) use of insulin; E78.2 Mixed hyperlipidemia; N40.0 Benign prostatic hyperplasia without lower urinary tract symptoms; Z82.49 Family history of ischemic heart disease and other diseases of the circulatory system
CPT/HCPCS: 36415; 36416; 71045; 80048; 80053; 82962; 83036; 83735; 83880; 84443; 84484; 85025; 93005; 96372; 96374; 96375; 96376; 99291; G0378; J0360; J1815; J3490

== ENCOUNTER 2021-07-15 06:09 | Emergency (ER) | payer BC, SELFPAY ==
[2021-07-15 06:15] VITALS: BP 183/83; PULSE 59; RESP 20; TEMP 36.9; O2SAT 97; BMI 49.5
--- NOTE | 2021-07-15 06:24 | XRR_ITS ---
PROCEDURE INFORMATION: Exam: XR Chest Exam date and time: 07/15/2021 6:24 AM Age: 55 years old Clinical indication: Other: No chest complaints; Patient HX: No chest compliants, leg swelling; Additional info: Dyspnea/cough TECHNIQUE: Imaging protocol: XR of the chest. Views: 1 view. COMPARISON: No relevant prior studies available. FINDINGS: Lungs: Summation densities or interstitial infiltrate right lower lung. Accentuation of right hilar bronchial margins. Pleural spaces: Unremarkable. No pleural effusion. No pneumothorax. Heart/Mediastinum: Accentuation of the cardiac silhouette which could partially be on the basis of AP technique. Bones/joints: Unremarkable. XR/XR chest 1V portable [id number] IMPRESSION: 1. Superimposed soft tissue density versus interstitial opacity right lower lobe. Correlation for any symptoms of pneumonia is required. Further follow-up of the chest is recommended to assess clearance. 2. Accentuation of right hilar bronchial margins suggestive of bronchitis. Radiation Dose CTDIVOL = (mGy): DLP = (mGy-cm)
--- NOTE | 2021-07-15 06:24 | ECG_ITS ---
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 Measurements Intervals [place] Rate: 57 P: -55 KS: 153 QRS: 37 QRSD: 96 T: 44 QT: 448 QTc: 436 Interpretive Statements ECTOPIC ATRIAL BRADYCARDIA LOW QRS VOLTAGE IN PRECORDIAL LEADS [QRS DEFLECTION < 1.0 mV IN CHEST LEADS] INCOMPLETE RIGHT BUNDLE BRANCH BLOCK [90+ ms QRS DURATION, TERMINAL R IN V1/V2, 40+ ms S IN I/aVL/V4/V5/V6] POSSIBLE ANTERIOR MYOCARDIAL INFARCTION , OF INDETERMINATE AGE [30 ms Q WAVE IN V3/V4, OR R < 0.2 mV IN V4] No previous ECG available for comparison Electronically Signed On 07-15-2021 16:45:21 AEROSPACE TECHNICIAN by Edgar Cottrell M.D. [id number] f
[2021-07-15 06:50] VITALS: BP 134/66; PULSE 53; RESP 20; TEMP 36.6; O2SAT 93
[2021-07-15 06:51] LABS: Basophils % 0.5 %; Eosinophils # 0.2 10^3/uL (0.0-0.8); Eosinophils % 2.3 %; Hemoglobin 10.1 g/dL (11.7-16.6); Lymphocytes # 1.9 10^3/uL (0.8-4.8); Lymphocytes % 29.8 %; Mean Corpuscular HGB Conc 31.6 g/dL (30.0-36.0); Mean Corpuscular Hemoglobin 25.8 pg (28.0-34.0); Mean Corpuscular Volume 81.6 fl (80-94); Mean Platelet Volume 9.5 fL (7.4-10.4); Monocytes # 0.5 10^3/uL (0.2-0.9); Monocytes % 7.2 %; Neutrophils # 3.88 10^3/uL (1.8-7.7); Neutrophils % 59.7 %; Nucleated Red Blood Cells % 0 %; Platelet Count 219 10^3/cmm (130-400); Red Blood Count 3.92 10^6/uL (4.1-5.3); Red Cell Distribution Width 16.7 % (12.1-15.1); White Blood Count 6.5 10^3/uL (4.0-10.0)
--- NOTE | 2021-07-15 07:06 | ED_ITS ---
HPI - SOB/Dyspnea General: Chief Complaint: Shortness of Breath/Dyspnea Stated Complaint: SOB Time Seen by Provider: 07/15/21 06:21 History of Present Illness: HPI Narrative: 55-year-old male presents emergency room complaining of shortness of breath and swelling in his legs. States it started over the last several days. He recently was switched from Lasix 80 mg twice daily to Bumex 2 mg twice daily. He is seen at the urology clinic. Patient is a history of renal disease. He denies history of predischarge failure coronary disease or previous stroke. He denies any chest pain at this time he states there is a swelling in his legs is gotten significantly worse. He does have some mild orthopnea as well. MD elicited complaint: shortness of breath and cough Pertinent past history: diabetes Onset (ago): day(s) Context: elevated blood glucose Timing: constant Severity: moderate Exacerbating factors: lying flat Relieving factors: upright position Known history of: diabetes Associated symptoms: Reports orthopnea; Deny abdominal pain, chest congestion, chest pain, cough, diaphoresis, dizziness, extremity pain, fever(s), hemoptysis, lightheadedness, myalgias, nausea, palpitations, paresthesias, polydipsia, polyuria, rash, syncope or vomiting Treatment prior to arrival: none Review of Systems Const: Denies: fever(s) or diaphoresis ENMT: Denies: throat pain, ear or mastoid pain, nasal discharge or nasal congestion Card: Reports: orthopnea; Denies: chest pain, palpitations, lightheadedness or syncope Resp: Denies: hemoptysis or chest congestion GI: Denies: abdominal pain, nausea or vomiting : Denies: flank pain, dysuria, urinary frequency or urinary urgency Musc: Denies: extremity pain Skin/Breast: Denies: rash or pruritus Neuro: Denies: dizziness Endo: Denies: polyuria or polydipsia Physical Exam Const: COMMON NORMALS: no acute distress GENERAL APPEARANCE: cooperative and comfortable ORIENTATION/CONSCIOUSNESS: Yes awake, Yes oriented to person, Yes oriented to place and Yes oriented to time HENMT: COMMON NORMALS: normocephalic, atraumatic and hearing grossly normal bilaterally HEAD & SCALP: normocephalic and atraumatic Neck/C-Spine: COMMON NORMALS: no JVD Resp: COMMON NORMALS: normal respiratory effort, No retractions, No use of accessory muscles and clear to auscultation bilaterally AUSCULTATION: clear to auscultation bilaterally Cardio: COMMON NORMALS: no JVD, regular rate, regular rhythm and No murmurs present (Cardio) RATE: regular rate RHYTHM: regular rhythm GI: COMMON NORMALS: Soft to palpation and No hepatosplenomegaly present AUSCULTATION: Yes normoactive bowel sounds PALPATION: Yes Soft to palpation, No Tenderness to palpation present (GI), No Guarding due to palpation present (GI) and Yes No hepatosplenomegaly present Extremity: COMMON NORMALS: normal to inspection, capillary refill normal, no clubbing, cyanosis or edema and no calf tenderness GENERAL: Yes edema OTHER: 3+ edema lower extremities diabetic ulcer at the head of the fifth metatarsal no redness no erythema no active drainage Neuro: SENSORIUM/ORIENTATION: Yes oriented to person, Yes oriented to place and Yes oriented to time Skin: COMMON NORMALS: no rashes or lesions noted GENERAL SKIN EXAM: no rashes or lesions noted Course Vital Signs: Vital signs: Vital Signs Temperature 97.9 F 07/15/21 06:50 Pulse Rate 52 L 07/15/21 10:55 Respiratory Rate 17 07/15/21 10:55 Blood Pressure 154/75 07/15/21 10:55 Pulse Oximetry 94 07/15/21 10:55 MDM - SOB/Dyspnea MDM Narrative: Medical decision making narrative: Labs imaging and EKG reviewed as on chart. We did check his baseline creatinine is actually little higher than what he is today. We will have him double up Bumex for 3 days he does need to follow-up with his primary care doctor his antiviral medication for HIV can actually cause renal problems they have had a just once in the past with the increase in the Bumex he may need more adjustment. He is oriented to have the doubled up dose for 3 days then reevaluate his primary care doctor return if he has further problems. Lab Data: Labs: Lab Results 07/15/21 07/15/21 07/15/21 06:40 06:40 06:40 WBC 6.5 10^3/uL 10^3/ uL (4.0-10.0) RBC 3.92 10^6/uL L 10 ^6/uL (4.1-5.3) Hgb 10.1 g/dL L g/dL (11.7-16.6) Hct 32.0 % L % (42.0-52.0) MCV 81.6 fl fl (80-94) MCH 25.8 pg L pg (28.0-34.0) MCHC 31.6 g/dL g/dL (30.0-36.0) RDW 16.7 % H % (12.1-15.1) Plt Count 219 10^3/cmm 10^3 /cmm (130-400) MPV 9.5 fL fL (7.4-10.4) Neut % (Auto) 59.7 % % Lymph % (Auto) 29.8 % % [place] % (Auto) 7.2 % % Eos % (Auto) 2.3 % % Baso % (Auto) 0.5 % % Neut # (Auto) 3.88 10^3/uL 10^3 /uL (1.8-7.7) Lymph # (Auto) 1.9 10^3/uL 10^3/ uL (0.8-4.8) [place] # (Auto) 0.5 10^3/uL 10^3/ uL (0.2-0.9) Eos # (Auto) 0.2 10^3/uL 10^3/ uL (0.0-0.8) Baso # (Auto) 0.0 10^3/uL 10^3/ uL (0.0-0.1) Nucleated RBC % (a uto) 0 % % Nucleated RBCs # 0.0 /100WBC /100W BC Sodium 139 mmol/L mmol/L (136-145) Potassium 4.7 mmol/L mmol/L (3.5-5.1) Chloride 99 mmol/L mmol/L (98-107) Carbon Dioxide 28 mmol/L mmol/L (22-29) Anion Gap 16.7 (5-19) BUN 65 mg/dL H mg/dL (6-20) Creatinine 3.4 mg/dL H mg/dL (0.7-1.2) GFR Calculation 18.8 mL/min L mL/ min (90-130) Glucose 81 mg/dL mg/dL (65-115) Calculated Osmolal ity 306 mOsm/kg H mOs m/kg (285-295) Calcium 7.7 mg/dL L mg/dL (8.5-10.5) Total Bilirubin 0.8 mg/dL mg/dL (0.15-1.2) AST 10 U/L U/L (0-40) ALT 13 U/L U/L (0-41) Alkaline Phosphata se 71 IU/L IU/L (40-130) Troponin T Baselin e 57 ng/L H ng/L (0-15) Troponin T 120 Min [place] Delta Troponin T Total Protein 6.7 g/dL g/dL (6.6-8.7) Albumin 3.9 g/dL g/dL (3.5-5.2) Globulin 2.8 g/dL g/dL (1.3-4.6) 07/15/21 09:10 WBC RBC Hgb Hct MCV MCH MCHC RDW Plt Count MPV Neut % (Auto) Lymph % (Auto) [place] % (Auto) Eos % (Auto) Baso % (Auto) Neut # (Auto) Lymph # (Auto) [place] # (Auto) Eos # (Auto) Baso # (Auto) Nucleated RBC % (a uto) Nucleated RBCs # Sodium Potassium Chloride Carbon Dioxide Anion Gap BUN Creatinine GFR Calculation Glucose Calculated Osmolal ity Calcium Total Bilirubin AST ALT Alkaline Phosphata se Troponin T Baselin e Troponin T 120 Min [place] 55.14 ng/L H ng/L (0-15) Delta Troponin T -1.86 ABS# L ABS# (0-10) Total Protein Albumin Globulin Discharge Plan Discharge Patient Disposition: Home Clinical Impression: CRF (chronic renal failure), HIV (human immunodeficiency virus infection), Diabetes, Diabetic foot ulcer Condition: Stable Prescriptions: Changed bumetanide 2 mg tablet 4 mg PO BID Qty: 0 RF: 0 No Action metoprolol tartrate 100 mg tablet 100 mg PO BID RF: 0 clonidine HCl 0.3 mg tablet 0.3 mg PO BID RF: 0 nifedipine 30 mg tablet extended release 30 mg PO .PT UNSURE RF: 0 Aspir-81 81 mg Tablet,Delayed Release (Dr/Ec) 81 mg PO PRN PRN (Reason: Headache) RF: 0 tamsulosin 0.4 mg capsule 0.8 mg PO QPM RF: 0 minoxidil 10 mg tablet 5 mg PO QAM RF: 0 hydralazine 50 mg tablet 50 mg PO QID RF: 0 calcitriol 0.25 mcg capsule 0.25 mcg PO Q7D RF: 0 Levemir FlexTouch U-100 Insuln 100 unit/mL (3 mL) insulin pen See Rx Instructions .ROUTE .COMPLEX RF: 0 Biktarvy 50-200-25 mg tablet 1 tab PO BEDTIME RF: 0 Multi Symptom Cold Flu Sore Th 1 - 2 tab PO PRN RF: 0 Misael Plex Iron 85 mg PO QAM RF: 0 Kidney Formula 2 tab PO BID RF: 0 Solar D Gems 1 cap PO QAM RF: 0 Tart Tamayo 2 cap PO QAM RF: 0 Discharge Orders: Discharge ED (Routine); Ordered 07/15/21 Ordered By: Alfredo Murphy Referrals: John Hernandez, [Primary Care Provider] - Discharge Diet: Usual diet Discharge Activity: Resume usual activity Patient Instructions: Opioid Safety Activity Restrictions/Additional Instructions: Increase her Bumex to 4 mg twice a day for 3 days. It is very important that you follow-up with Dr. Amin in the next 2 to 3 days for repeat test of your kidney function. Coding Level of Care Code ED Straight Ruling Machine Operator for Chg Fwd Exam Comprehensive
[2021-07-15 07:11] LABS: Alanine Aminotransferase 13 U/L (0-41); Albumin Level 3.9 g/dL (3.5-5.2); Alkaline Phosphatase 71 IU/L (40-130); Anion Gap 16.7 (5-19); Aspartate Amino Transferase 10 U/L (0-40); Blood Urea Nitrogen 65 mg/dL (6-20); Calcium 7.7 mg/dL (8.5-10.5); Carbon Dioxide 28 mmol/L (22-29); Chloride 99 mmol/L (98-107); Globulin 2.8 g/dL (1.3-4.6); Glomerular Filtration Rate 18.8 mL/min (90-130); Glucose 81 mg/dL (65-115); Osmolality Calculated 306 mOsm/kg (285-295); Potassium 4.7 mmol/L (3.5-5.1); Sodium 139 mmol/L (136-145); Total Bilirubin 0.8 mg/dL (0.15-1.2); Total Protein 6.7 g/dL (6.6-8.7)
[2021-07-15 07:13] LABS: Troponin(5th) Baseline 57 ng/L (0-15)
--- NOTE | 2021-07-15 08:27 | PC.PHAR ---
Addendum entered by Amy Velasquez 07/15/21 08:33: pt states diltiazem er 120mg filled on 06/14/21 30d/s,metoprolol tartrate 50mg bid filled on 05/31/21 90d/s,amlodipine 10mg daily filled on 05/27/21 90d/s,lasix 80mg bid filled on 05/14/21 90d/s,kcl 10meq daily filled on 03/23/21 90d/s and candesartan 32mg daily filled on 02/28/21 90d/s was all dced Original Note: pt states he has a nurse that comes from [facility] but states he knows what medications he takes-pt brought in med list from [facility]- rx filled on 05/27/21 90d/s for clonidine 0.3mg qid-pt state he takes 0.3mg bid-rx filled on 04/29/21 90d/s for hydralazine 50mg bid-another rx filled on 06/07/21 for 100mg tid-pt states he is taking 50mg qid-pt states he was using levemir flextouch 80 units qam and 160 units qpm but states it was too much so he now does 80 units qam and 80-100 unit qpm-pt states he is unsure if he takes nifedipine rx filled on 06/26/21 30d/s-notes are made in the pharmacy comments
[2021-07-15 08:41] VITALS: BP 134/66; PULSE 51; RESP 15; O2SAT 94
[2021-07-15 09:51] LABS: Troponin 5 2HR 55.14 ng/L (0-15)
[2021-07-15 09:53] LABS: Troponin 5 2HR Delta -1.86 ABS# (0-10)
[2021-07-15 10:42] VITALS: BP 146/66; PULSE 52; RESP 14; O2SAT 93
[2021-07-15 10:55] VITALS: BP 154/75; PULSE 52; RESP 17; O2SAT 94
--- NOTE | 2021-07-15 12:24 | ECG_ITS ---
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 Measurements Intervals [place] Rate: 52 P: 51 [place]: 180 QRS: 40 QRSD: 106 T: 58 QT: 473 QTc: 441 Interpretive Statements SINUS BRADYCARDIA INCOMPLETE RIGHT BUNDLE BRANCH BLOCK [90+ ms QRS DURATION, TERMINAL R IN V1/V2, 40+ ms S IN I/aVL/V4/V5/V6] POSSIBLE ANTERIOR MYOCARDIAL INFARCTION , OF INDETERMINATE AGE [30 ms Q WAVE IN V3/V4, OR R < 0.2 mV IN V4] Compared to ECG 07/15/2021 06:30:02 Bradycardia, nonsinus no longer present Myocardial infarct finding still present Electronically Signed On 07-15-2021 16:46:45 JOURNEYMAN SHEET METAL WORKER by Edgar Cottrell M.D. [id number]
== END 2021-07-15 11:00 | disposition home or self-care (01) ==
PROVIDERS: Emergency Provider Family Medicine; PCP Family Medicine
DX: B20 Human immunodeficiency virus [HIV] disease (principal); E11.22 Type 2 diabetes mellitus with diabetic chronic kidney disease; I12.9 Hypertensive chronic kidney disease with stage 1 through stage 4 chronic kidney disease, or unspecified chronic kidney disease; N18.9 Chronic kidney disease, unspecified; Z79.899 Other long term (current) drug therapy; Z79.4 Long term (current) use of insulin; Z79.82 Long term (current) use of aspirin
CPT/HCPCS: 71045; 80053; 84484; 85025; 93005; 96374; 99284; J3490

== ENCOUNTER → 2021-07-26 14:40 | Outpatient (BNVA) | payer BC, SELFPAY | PROVIDERS: PCP Family Medicine; Visit Provider Podiatrist Foot & Ankle Surgery | DX: L97.523 Non-pressure chronic ulcer of other part of left foot with necrosis of muscle (principal) | CPT/HCPCS: 73630 ==

== ENCOUNTER → 2021-09-02 14:31 | Outpatient (BNVA) | payer BC, SELFPAY | PROVIDERS: PCP Family Medicine; Visit Provider Podiatrist Foot & Ankle Surgery | DX: M25.571 Pain in right ankle and joints of right foot (principal) | CPT/HCPCS: 73610; 87635 ==

== ENCOUNTER → 2021-09-03 00:01 | Outpatient (BNVA) | payer BC, SELFPAY | PROVIDERS: PCP Family Medicine; Visit Provider Podiatrist Foot & Ankle Surgery | DX: Z20.822 Contact with and (suspected) exposure to COVID-19 (principal) | CPT/HCPCS: 87635 ==

== ENCOUNTER 2021-09-05 05:53 | Day surgery (SDC) | payer BC, SELFPAY ==
[2021-09-04 10:04] VITALS: BMI 48.6
[2021-09-05] VITALS (11 sets, daily range): BP systolic 141–183; BP diastolic 70–90; PULSE 47–57; RESP 14–20; TEMP 36.5–37; O2SAT 92–99
--- NOTE | 2021-09-05 06:29 | W.PM.OPSUD ---
Surgery/Procedure H&P Update DATE OF PROCEDURE: September 05, 2021 DATE H&P PERFORMED: 09/02/21 H&P UPDATE INFORMATION: I have reviewed H&P completed within last 30 days, I have examined patient prior to procedure, No changes to prior documentation and H&P is in [facility] [place] on date indicated PREOP DIAGNOSIS: Tailor's bunion left foot PLANNED PROCEDURE: Operation Date: 09/05/21 07:00 Proposed Procedures p Left fifth Metarsal Head Resection [id number](Left) - Jeff Elaine DPM
[2021-09-05] MEDS: sodium chloride 0.9% 1,000 ML 30 ML IV (06:33)
[2021-09-05 06:34] LABS: Glucose Point of Care 250 mg/dL (70-110)
--- NOTE | 2021-09-05 06:40 | ANES.PREANE2 ---
Pre-Anesthetic Assessment Pre-Anesthetic Assessment: Height/Weight: Height 1.93 m Weight 181.437 kg Temp Pulse Resp BP Pulse Ox 98.6 F 55 L 16 178/80 97 09/05/21 06:14 09/05/21 06:14 09/05/21 06:14 09/05/21 06:14 09/05/21 06:14 Preop Diagnosis: Tailor's bunion left foot Proposed Procedure: Operation Date: 09/05/21 07:00 Proposed Procedures p Left fifth Metarsal Head Resection 16431(Left) - Jeff Elaine DPM Familial anesthetic complications: None Was Beta Yee taken within 24 hours: N/A Was Clonidine taken within 24 hours: N/A Last intake: Intake Last Liquid Date 09/04/21 Last Liquid Time 21:00 Last Solid Date 09/04/21 Last Solid Time 21:00 Social: Social History: No alcohol and No tobacco Exam: Pre-Anes Outpt Exam: alert, oriented x 3, clear to auscultation bilaterally and regular rate & rhythm Airway: MP: 4 Dentition: Full Additional comments: large tongue and neck Pulmonary: Pulmonary: Sleep apnea CV/HEM: CV/HEM: HTN : : Chronic renal Insufficiency Metabolic: Metabolic: Morbid obesity Comments: Patient HIV positive per chart, patient answered no when asked if he had any other medical problems. Anesthetic Plan: ASA status: 3 Anesthesia: General Risk of > 500 ml blood loss (7ml/kg in children): No Meds/Allergies Current Medications: Current Medications Generic Name Dose Route Start Last Admin Trade Name Freq PRN Reason Stop Dose Admin Sodium Chloride 1,000 mls @ 30 ml s/hr 09/05/21 06:00 09/05/21 06:33 Sodium Chloride 0.9% IV 09/06/21 05:59 30 mls/hr .Q24H JELLY Administration PFSH Anesthesia PFSH: Medical History BPH (benign prostatic hyperplasia) Chronic kidney disease Chronic ulcer of left foot with fat layer exposed CKD (chronic kidney disease) per patient attributed to vancomycin toxicity, no kidney biopsy Diabetes Diabetic peripheral neuropathy associated with type 2 diabetes mellitus HIV disease Hypertension Mixed hyperlipidemia Obesity Surgical History S/P ureteral stent placement Family History Father Hypertension Mother Hypertension Brother Cancer NON HODGKINS Other CAD (coronary artery disease) Diabetes Social History Alcohol intake: never Marital status: Current occupational status: employed Data Anesthesia Other Labs: Laboratory Results - last 48 hr 09/05/21 06:30 POC Glucose 250 H Cardiac Studies: No Data to Display
[2021-09-05] MEDS: insulin regular-human 100 units/1 mL 10 UNIT IVP (06:46)
[2021-09-05] MEDS: ceFAZolin 3,000 MG in sodium chloride 0.9% (100 ml) 100 ML 200 MG IV (07:00)
[2021-09-05] MEDS: lidocaine 1% INJ 20 mL 15 ML INJECTION (07:21)
--- NOTE | 2021-09-05 07:40 | PM.OP ---
Operative Report Date of procedure: September 05, 2021 Pre-op Diagnosis: Tailor's bunion left foot Post-op diagnosis: same Post-op Findings: None Procedure Done: Left fifth metatarsal head resection CPT code 78120 Implants: 3-0 Vicryl, 4-0 nylon Specimens removed/disposition: Left fifth metatarsal head Pathology: none sent Surgeon: Jeff Elaine D.P.M. Patient Financial Representative: Thiago Anesthesia: MAC Estimated blood loss: 5 Tourniquet time: 15 IV fluids: 0 Urine output: 0 Complications: None Findings: None Condition: stable Disposition: PACU Brief History: Patient is a pleasant 55-year-old male with recurring ulceration subfifth metatarsal head of the left foot. Wound has been present for a year. Patient recently healed the wound in an effort to prevent reulceration which is happened multiple times discussion was had to remove the fifth metatarsal head a surgical means of offloading, the fifth metatarsal head is corresponding to the area of pressure overload and wound formation. Patient would like to proceed with this. Risks include pain, bleeding, numbness, infection, transfer pressure, transfer lesion,, surgical site dehiscence, surgical site infection, altered mechanics, destabilized fifth toe and need for further surgical intervention. Procedure: Under mild sedation the patient was brought to the operating room and remained on the gurney in supine position. Timeout was performed. Anesthesia was then administered by the anesthesia service. Local anesthesia injected by myself consisting of one-to-one mixture 1% lidocaine and 0.5% Marcaine plain and a left reverse Ghosh block fashion. Well-padded pneumatic tourniquet applied to the left ankle. Left lower extremity was scrubbed, prepped and draped utilizing normal aseptic technique. Left foot was extenuated with an Esmarch bandage and the tourniquet inflated to 250 mmHg. Attention was directed to the dorsal lateral aspect of the left fifth metatarsophalangeal joint where a linear longitudinal incision was made through skin with dissection carried down to the level of the fifth metatarsal head utilizing blunt and sharp technique. Care was taken to retract and preserve neurovascular and tendinous structures. All bleeders were ligated and cauterized as necessary. Transverse osteotomy of the fifth metatarsal distal diaphyseal metaphyseal junction was performed in the head of the fifth metatarsal head was excised in total and passed from the operative field. Incision was flushed with saline solution and closed in a layered fashion with 3-0 Vicryl subcutaneous tissue and 4-0 nylon at skin. Incision was dressed with Adaptic, sterile 4 x 4, Kerlix and Justus wrap. Tourniquet was deflated and a prompt hyperemic response was noted to the distal digits of the left foot. Patient tolerated the procedure well and was transferred to the PACU with vital signs stable and vascular status intact. Following a period of postoperative monitoring he will be discharged home is to be limited activity protected weightbearing with Cam boot.
[2021-09-05] MEDS: fentaNYL 50 mcg/mL INJ 2mL IVP ×2 (07:47→07:50)
--- NOTE | 2021-09-05 07:51 | XR_ITS ---
WS: [id number] Left foot, 3 views, 09/05/2021 Clinical Data: post op Comparison: Left foot, 07/26/2021. Findings: There is amputation of the distal aspect of the left fifth metatarsal. There is a bunion at the head of the left first metatarsal. There is soft tissue swelling on the dorsum of the foot. 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
--- NOTE | 2021-09-05 08:04 | SUR.PHASEI ---
07:35 RECEIVED PATIENT FROM OR STAFF. ASSESSMENT DONE AIRWAY PATENT.PATIENT WITH C/O RIGHT CALF PAIN. 07:45 MEDICATED FOR CALF PAIN .DOCTOR GOODMAN MORFIN TO EVALUATE PATIENT
--- NOTE | 2021-09-05 08:10 | SUR.PHASEI ---
O7:50 RE MEDICATED FOR PAIN
--- NOTE | 2021-09-05 16:21 | ANE.PACU2 ---
Inpatient post-anesthesia follow up: Airway intact: Yes Vital signs: Temperature 98 F Pulse Rate 47 Respiratory Rate 16 Blood Pressure 159/72 Pulse Oximetry 95 Oxygen Delivery Me thod Room Air Oxygen Flow Rate 8 Fraction of Inspir ed Oxygen Hydration adequate: Yes Nausea and vomiting: No Pain level: 2 Mental status: Baseline
== END 2021-09-05 09:20 | disposition home or self-care (01) ==
PROVIDERS: PCP Family Medicine; Visit Provider Podiatrist Foot & Ankle Surgery
PROC: (CPT 28113; principal; 2021-09-05 07:00)
DX: M21.622 Bunionette of left foot (principal); L97.522 Non-pressure chronic ulcer of other part of left foot with fat layer exposed; G47.30 Sleep apnea, unspecified; E66.01 Morbid (severe) obesity due to excess calories; Z68.42 Body mass index [BMI] 45.0-49.9, adult; B20 Human immunodeficiency virus [HIV] disease; N40.0 Benign prostatic hyperplasia without lower urinary tract symptoms; E11.22 Type 2 diabetes mellitus with diabetic chronic kidney disease; I12.9 Hypertensive chronic kidney disease with stage 1 through stage 4 chronic kidney disease, or unspecified chronic kidney disease; N18.9 Chronic kidney disease, unspecified; E11.42 Type 2 diabetes mellitus with diabetic polyneuropathy; E11.621 Type 2 diabetes mellitus with foot ulcer; E78.2 Mixed hyperlipidemia; Z82.49 Family history of ischemic heart disease and other diseases of the circulatory system; Z79.4 Long term (current) use of insulin
CPT/HCPCS: 28113; 36416; 73630; 82962; 96374; J0690; J1815; J2250; J2704; J3010; J3490; J7030

== ENCOUNTER → 2021-09-18 12:01 | Outpatient (BNVA) | payer BC, SELFPAY | PROVIDERS: PCP Family Medicine; Visit Provider Surgery | DX: Z20.822 Contact with and (suspected) exposure to COVID-19 (principal) | CPT/HCPCS: 87635 ==

== ENCOUNTER 2021-09-23 05:52 | Day surgery (SDC) | payer BC, SELFPAY ==
[2021-09-20 15:27] VITALS: BMI 48.6
[2021-09-23] VITALS (8 sets, daily range): BP systolic 179–204; BP diastolic 84–92; PULSE 54–57; RESP 12–18; TEMP 36.2–36.8; O2SAT 91–99
[2021-09-23] MEDS: sodium chloride 0.9% 1,000 ML 30 ML IV (06:17)
[2021-09-23 06:24] LABS: Glucose Point of Care 200 mg/dL (70-110)
--- NOTE | 2021-09-23 06:51 | P.HP_ITS ---
Same Day Surgery H&P Indication for Procedure/HPI DATE OF PROCEDURE: September 23, 2021 CHIEF COMPLAINT/INDICATIONFOR SURGICAL PROCEDURE: peritoneal dialysis catheter placement PREOP DIAGNOSIS: CKD PLANNED PROCEDURE: Operation Date: 09/23/21 07:00 Proposed Procedures p Laparoscopic poss Open Peritoneal Cath Insertion [id number] N18.9(Not Applicable) - Dionte Edwards MD Medications/Allergies* Home Medications Medication Instructions Recorded Confirmed Type cholecalciferol (vitamin D3) 125 125 mcg PO BID cap 11/19/20 09/23/21 History mcg (5,000 unit) capsule ferrous sulfate 325 mg (65 mg 325 mg PO QAM tab 11/19/20 09/23/21 History iron) tablet Levemir FlexTouch U-100 Insuln See Rx Instructions .ROUTE .COMPLEX 06/13/21 09/23/21 History Tart Tamayo 2 cap PO BID 06/13/21 09/23/21 History ttyxqlmue-fdqbbwry-lmqpysk ala 1 tab PO BEDTIME 07/15/21 09/23/21 History [Biktarvy] calcitriol 0.25 mcg PO Q7D 07/15/21 09/23/21 History clonidine HCl 0.3 mg PO BID 07/15/21 09/23/21 History hydralazine 50 mg PO QID 07/15/21 09/23/21 History insulin detemir U-100 [Levemir See Rx Instructions .ROUTE .COMPLEX 07/15/21 09/23/21 History FlexTouch U-100 Insuln] tamsulosin 0.8 mg PO QPM 07/15/21 09/23/21 History metolazone 10 mg PO DAILY 09/05/21 09/23/21 History bumetanide 4 mg PO BID 09/20/21 09/23/21 History metoprolol tartrate 100 mg PO BID 09/20/21 09/23/21 History Allergies/Adverse Reactions Allergy/AdvReac Type Severity Reaction Status Date / Time nkda Allergy Unknown none Uncoded 09/23/21 06:07 Current Medications: Generic Name Dose Route Start Last Admin Trade Name Freq PRN Reason Stop Dose Admin Sodium Chloride 1,000 mls @ 30 mls/hr 09/23/21 06:00 09/23/21 06:17 Sodium Chloride 0.9% IV 09/24/21 05:59 30 mls/hr .Q24H JELLY Administration Pertinent History/Comorbid Conditions* Medical History (Updated 09/10/21 @ 15:03 by Dionte Edwards MD) BPH (benign prostatic hyperplasia) Chronic ulcer of left foot with fat layer exposed CKD (chronic kidney disease) per patient attributed to vancomycin toxicity, no kidney biopsy Diabetes Diabetic peripheral neuropathy associated with type 2 diabetes mellitus HIV disease Hypertension Mixed hyperlipidemia Surgical History (Updated 09/10/21 @ 15:03 by Dionte Edwards MD) H/O foot surgery History of colonoscopy 2010 S/P ureteral stent placement Family History (Updated 11/19/20 @ 07:47 by ANSLEY Palomo) Father Mother Diabetes CAD (coronary artery disease) Cancer Brother NON HODGKINS Hypertension Father Mother Social History Alcohol intake: never Marital status: Current occupational status: employed Pertinent Exam Findings alert, oriented x 3, regular rate & rhythm and operative site marked Recommendations Surgery/Procedure today Coding Level of Care Code 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
--- NOTE | 2021-09-23 07:10 | ANES.PREANE2 ---
Pre-Anesthetic Assessment Pre-Anesthetic Assessment: Height/Weight: Height 1.93 m Weight 181.437 kg Temp Pulse Resp BP Pulse Ox 98.2 F 57 L 18 204/86 95 09/23/21 06:28 09/23/21 06:28 09/23/21 06:28 09/23/21 06:28 09/23/21 06:28 Preop Diagnosis: CKD Proposed Procedure: Operation Date: 09/23/21 07:00 Proposed Procedures p Laparoscopic poss Open Peritoneal Cath Insertion [id number] N18.9(Not Applicable) - Dionte Edwards MD Was Beta Yee taken within 24 hours: Yes Was Clonidine taken within 24 hours: Yes Last intake: Intake Last Liquid Date 09/22/21 Last Liquid Time 21:00 Last Solid Date 09/22/21 Last Solid Time 21:00 Social: Social History: No alcohol and No tobacco Exam: Pre-Anes Outpt Exam: alert, oriented x 3, clear to auscultation bilaterally and regular rate & rhythm Airway: Submandibular: WNL Cervical ROM: WNL MP: 2 Dentition: Full Pulmonary: Pulmonary: Sleep apnea CV/HEM: CV/HEM: HTN : : Chronic renal Insufficiency Comments: ESRD Metabolic: Metabolic: DM and Morbid obesity Anesthetic Plan: ASA status: 3 Anesthesia: General Risk of > 500 ml blood loss (7ml/kg in children): No Medications/Allergies Current Medications: Current Medications Generic Name Dose Route Start Last Admin Trade Name Freq PRN Reason Stop Dose Admin Sodium Chloride 1,000 mls @ 30 ml s/hr 09/23/21 06:00 09/23/21 06:17 Sodium Chloride 0.9% IV 09/24/21 05:59 30 mls/hr .Q24H JELLY Administration PFSH Anesthesia PFSH: Medical History BPH (benign prostatic hyperplasia) Chronic ulcer of left foot with fat layer exposed CKD (chronic kidney disease) per patient attributed to vancomycin toxicity, no kidney biopsy Diabetes Diabetic peripheral neuropathy associated with type 2 diabetes mellitus HIV disease Hypertension Mixed hyperlipidemia Surgical History H/O foot surgery History of colonoscopy 2010 S/P ureteral stent placement Family History Father Hypertension Mother Hypertension Brother Cancer NON HODGKINS Other CAD (coronary artery disease) Diabetes Social History Alcohol intake: never Marital status: Current occupational status: employed Data Anesthesia Other Labs: Laboratory Results - last 48 hr 09/23/21 06:21 POC Glucose 200 H Cardiac Studies: No Data to Display
[2021-09-23] MEDS: heparin, porcine 1,000 unit/mL INJ 10 mL 10000 UNIT XX (07:39)
--- NOTE | 2021-09-23 08:05 | PM.OP ---
Operative Report Date of procedure: September 23, 2021 Pre-op Diagnosis: Chronic kidney disease requiring dialysis Post-op Diagnosis: 1. Chronic kidney disease requiring dialysis 2. No significant inflammation or adhesions noted in the peritoneal cavity Procedure Done: Laparoscopic placement of peritoneal dialysis catheter Pathology: none sent Surgeon: Dionte Edwards Anesthesia: General Condition: stable Disposition: PACU Procedure: The patient was taken to the operating room and intubated under general anesthesia after IV antibiotic had been administered. The abdomen was prepped and draped in a sterile manner. Using 15 blade a 1 cm incision was made in the left upper quadrant and a Veress needle introduced to create 15 mm of pneumoperitoneum. Using Optiview technique, a 5 mm port was placed and a 5 mm 30? scope was introduced. Another 5 mm port was placed in the left lower quadrant at the level of the umbilicus in the midclavicular line. The pigtail peritoneal dialysis catheter was placed on the abdominal wall and the position marked, an introducer needle was passed through the abdominal wall to the right of the midline inferior to the umbilicus, guidewire passed through the introducer needle, the needle was removed and a dilator sheath was placed over the guidewire and inner dilator and guidewire was removed. The pigtail catheter was introduced as the peel-away sheath was removed with the tip of the catheter in the pelvis and the cuff within the rectus muscle. The catheter was tunneled proximally to exit in the right upper quadrant. A subcutaneous pocket was created. The catheter was attached to a saline bag and there was good inflow and outflow noted. 20 mL of 1:10,000 heparin was injected into the tube. The ports were removed under direct visualization and there was no bleeding from the port sites. The skin at the 5 mm port sites were closed using 4-0 Monocryl and Dermabond. Sterile dressings were applied at the catheter site. The patient was extubated and transferred to recovery room in stable condition.
[2021-09-23] MEDS: hyDRALAzine 20 mg/mL INJ 1 mL 10 MG IVP (08:40)
--- NOTE | 2021-09-23 14:16 | ANE.PACU2 ---
Inpatient post-anesthesia follow up: Airway intact: Yes Vital signs: Temperature 97.9 F Pulse Rate 56 Respiratory Rate 18 Blood Pressure 179/88 Pulse Oximetry 92 Oxygen Delivery Me thod Room Air Oxygen Flow Rate 6 Fraction of Inspir ed Oxygen Hydration adequate: Yes Nausea and vomiting: No Pain level: 2 Mental status: Baseline
== END 2021-09-23 09:35 | disposition home or self-care (01) ==
PROVIDERS: PCP Family Medicine; Visit Provider Surgery
PROC: 0WHG43Z Insertion of Infusion Device into Peritoneal Cavity, Percutaneous Endoscopic Approach (ICD-10-PCS; CPT 49324; principal; 2021-09-23 07:00)
DX: N18.9 Chronic kidney disease, unspecified (principal); N40.0 Benign prostatic hyperplasia without lower urinary tract symptoms; E11.42 Type 2 diabetes mellitus with diabetic polyneuropathy; E78.2 Mixed hyperlipidemia; Z21 Asymptomatic human immunodeficiency virus [HIV] infection status; E11.22 Type 2 diabetes mellitus with diabetic chronic kidney disease; I12.9 Hypertensive chronic kidney disease with stage 1 through stage 4 chronic kidney disease, or unspecified chronic kidney disease
CPT/HCPCS: 49324; 36416; 82962; J0330; J0360; J0690; J1100; J1644; J2405; J2704; J3010; J3490; J7030

== ENCOUNTER 2021-12-26 13:20 | Outpatient (CLI) | payer MEDICARE, BC, SELFPAY ==
--- NOTE | 2021-12-26 13:33 | XR_ITS ---
WS: [id number] Exam: XR pelvis 1-2V* [id number] Date/Time of Exam: 12/26/2021 1:33 PM Reason For Exam: CHECK FOR KINKS/DISPLACEMENT CHECK FOR CONSTIPATION The pelvis is intact. No fracture or bone destruction noted. Several loops of opaque catheter seen in the mid pelvic region. XR/XR pelvis 1-2V* [id number] IMPRESSION: 1. Unremarkable pelvis. 2. Opaque catheter looped in the pelvis that apparently represents a dialysis c atheter.
--- NOTE | 2021-12-26 13:33 | XR_ITS ---
WS: [id number] Exam: XR abdomen 1V* [id number] Date/Time of Exam: 12/26/2021 1:48 PM Reason For Exam: TO CHECK FOR KINKS OR DISPLACEMENT CHECK FOR CONSTIPATION No bowel obstruction or free air. No sign of organ enlargement. An opaque catheter is looped in the p monica and may represent a dialysis or CSF shunt catheter. Regional bony elements are intact. XR/XR abdomen 1V* [id number] IMPRESSION: 1. No acute abdominal process. No sign of significant constipation. 2. Opaque catheter noted in the pelvic region that may represent a shunt cathet er or dialysis catheter.
== END 2021-12-26 13:21 | disposition home or self-care (01) ==
PROVIDERS: PCP Family Medicine; Visit Provider Internal Medicine Nephrology
DX: Z46.6 Encounter for fitting and adjustment of urinary device (principal)
CPT/HCPCS: 72170; 74018

== ENCOUNTER → 2022-02-26 16:03 | Outpatient (BNVA) | payer MEDICARE, BC, SELFPAY | PROVIDERS: PCP Family Medicine; Visit Provider Family Medicine | DX: R30.0 Dysuria (principal) | CPT/HCPCS: 81000; 87086 ==

== ENCOUNTER 2022-03-13 13:56 | Outpatient (CLI) | payer MEDICARE, BC, MEDICAID, SELFPAY ==
--- NOTE | 2022-03-13 14:13 | XR_ITS ---
WS: [id number] KUB, AP view, 03/13/2022 Clinical Data: EVAL PD TUBE FROM EXIT SITE TO TUBE TERMINATION Comparison: KUB, 12/26/2021. Findings: No abnormal intraabdominal masses or calcifications are seen. There is no dilatated small bowel or ev idence of obstruction. There is a peritoneal dialysis catheter looped in the pelvis. There is a large connecting tube overly ing the right side of the abdomen. XR/XR KUB [id number] Impression: Peritoneal dialysis catheter looped in the true pelvis.
== END 2022-03-13 13:57 | disposition home or self-care (01) ==
LOC: RAD 14:02
PROVIDERS: PCP Family Medicine; Visit Provider Internal Medicine Nephrology
DX: T85.691D Other mechanical complication of intraperitoneal dialysis catheter, subsequent encounter (principal); N18.6 End stage renal disease; Z99.2 Dependence on renal dialysis
CPT/HCPCS: 74018

== ENCOUNTER 2022-04-28 15:02 | Outpatient (CLI) | payer MEDICARE, BC, MEDICAID, SELFPAY ==
--- NOTE | 2022-04-28 15:15 | USCV_ITS ---
BernardSay Age: 56 Gender: M : 1965 Exam Date: 04/28/2022 15:22 Ordering Phys: John Hernandez DO Technologist: Chelle Cortés [place]am Location[place] [facility] [place]ication: CHF BP: 148 / 78 HR: 64 Rhythm: Sinus Technical Quality: Technically difficult study MEASUREMENTS (Male / Female) Normal Values 2D ECHO LV Diastolic Diameter PLAX 4.5 cm 4.2 - 5.9 / 3.9 - 5.3 cm LV Systolic Diameter PLAX 2.5 cm IVS Diastolic Thickness 2.2 cm 0.6 - 1.0 / 0.6 - 0.9 cm IVS Systolic Thickness 1.8 cm LVPW Diastolic Thickness 1.8 cm 0.6 - 1.0 / 0.6 - 0.9 cm LVPW Systolic Thickness 2.5 cm LVOT Diameter 2.0 cm LV Ejection Fraction 2D Teich 76.6 % LV Ejection Fraction MOD 2C 70.1 % LV Ejection Fraction 2C AL 70.6 % LA Diameter 3.6 cm LA Width 3.6 cm LA Height 5.7 cm RA Width 3.7 cm RA Height 5.5 cm Aorta at Sinotubular Diameter 3.3 cm IVC Diameter 2.4 cm DOPPLER AV Peak Velocity 126.0 cm/s LVOT Peak Velocity 119.0 cm/s AV Area Cont Eq vti 3.3 cm squared AV Area Cont Eq pk 3.1 cm squared MV Peak Velocity 116.0 cm/s MV Area PHT 2.8 cm squared Mitral E to A Ratio 0.9 MV E' Velocity 100.0 cm/s TR Peak Velocity 81.3 cm/s TR Peak Gradient 2.6 mmHg Right Atrial Pressure 3.0 mmHg Pulmonary Artery Systolic Pressu 5.6 mmHg PV Peak Velocity 81.0 cm/s RV Acceleration Time 0.0 s RV Ejection Time 0.3 s RV AcT/ET 0.1 FINDINGS Left Ventricle Left ventricle is normal in size. LV systolic function is normal with EF of 60 to 65%. No regional wall motion abnormalities are seen. Grade 1 diastolic dysfunction Right Ventricle Grossly normal in size and function Right Atrium Normal in size Left Atrium Normal in size Mitral Valve Mild mitral annular calcification seen. No significant regurgitation or stenosis Aortic Valve Aortic valve is thickened. No significant stenosis or regurgitation seen. Tricuspid Valve Trace tricuspid regurgitation. Insufficient TR jet to calculate RVSP Pulmonic Valve Not well-visualized Pericardium Normal Aorta Normal in size IVC CONCLUSIONS LV systolic function normal with EF of 60 to 65%. Grade 1 diastolic dysfunction. Aortic valve is thickened. Trace tricuspid regurgitation. No comparison studies are available Edgar Cottrell MD (Electronically Signed) Final Date: 08 May 2022 11:55 S
== END 2022-04-28 15:03 | disposition home or self-care (01) ==
LOC: RAD 15:02
PROVIDERS: PCP Family Medicine; Visit Provider Family Medicine
DX: N18.9 Chronic kidney disease, unspecified (principal); R60.9 Edema, unspecified; I08.2 Rheumatic disorders of both aortic and tricuspid valves
CPT/HCPCS: 93306

== ENCOUNTER → 2022-05-08 15:52 | Outpatient (BNVA) | payer MEDICARE, SELFPAY | PROVIDERS: PCP Family Medicine; Visit Provider Family Medicine | DX: E11.42 Type 2 diabetes mellitus with diabetic polyneuropathy (principal); N18.9 Chronic kidney disease, unspecified | CPT/HCPCS: 81000; 81003; 87086 ==

== ENCOUNTER → 2022-08-19 11:05 | Outpatient (BNVA) | payer MEDICARE, SELFPAY | PROVIDERS: PCP Family Medicine; Visit Provider Podiatrist Foot & Ankle Surgery | DX: E11.8 Type 2 diabetes mellitus with unspecified complications (principal); E11.42 Type 2 diabetes mellitus with diabetic polyneuropathy; Z86.31 Personal history of diabetic foot ulcer; M21.41 Flat foot [pes planus] (acquired), right foot; M21.42 Flat foot [pes planus] (acquired), left foot; Z79.4 Long term (current) use of insulin | CPT/HCPCS: 99214 ==

== ENCOUNTER → 2022-12-02 11:31 | Outpatient (BNVA) | payer MEDICARE, MEDICAID, SELFPAY | PROVIDERS: PCP Family Medicine; Visit Provider Podiatrist Foot & Ankle Surgery | DX: E11.42 Type 2 diabetes mellitus with diabetic polyneuropathy (principal); E11.22 Type 2 diabetes mellitus with diabetic chronic kidney disease; N18.9 Chronic kidney disease, unspecified; M21.41 Flat foot [pes planus] (acquired), right foot; M21.42 Flat foot [pes planus] (acquired), left foot; L60.3 Nail dystrophy; L84 Corns and callosities; S90.812A Abrasion, left foot, initial encounter; I89.0 Lymphedema, not elsewhere classified; W22.8XXA Striking against or struck by other objects, initial encounter; Z79.4 Long term (current) use of insulin | CPT/HCPCS: 11055; 11721; 99213 ==

== ENCOUNTER 2022-12-17 20:49 | Inpatient (IN) | payer MEDICARE, MEDICAID, SELFPAY ==
[2022-12-17 20:51] VITALS: BP 148/56; PULSE 73; RESP 18; TEMP 36.8; O2SAT 92; BMI 48.6
--- NOTE | 2022-12-17 21:18 | CTR_ITS ---
PROCEDURE INFORMATION: Exam: CT Head Without Contrast Exam date and time: 12/17/2022 9:47 PM Age: 57 years old Clinical indication: Injury or trauma; Fall; Blunt trauma (contusions or hematomas); Additional info: Fall and hit head. Denies loc, on blood thinner TECHNIQUE: Imaging protocol: Computed tomography of the head without contrast. Radiation optimization: All CT scans at this facility use at least one of these dose optimization techniques: automated exposure control; mA and/or kV adjustment per patient size (includes targeted exams where dose is matched to clinical indication); or iterative reconstruction. REPORTING DATA: Count of CT and Cardiac NM exams in prior 12 months: This patient has received 0 known CTs and 0 known cardiac nuclear medicine studies in the 12 months prior to the current study. COMPARISON: No relevant prior studies available. RADIATION DOSE METRICS: Total DLP (mGy-cm): 1173.68 FINDINGS: Brain: Normal. No hemorrhage. Unremarkable white matter. No mass effect. Cerebral ventricles: No ventriculomegaly. Paranasal sinuses: Visualized sinuses are unremarkable. No fluid levels. Mastoid air cells: Visualized mastoid air cells are well aerated. Bones/joints: Unremarkable. No acute fracture. Soft tissues: Unremarkable. CT/CT head wo con* [id number] IMPRESSION: No acute intracranial abnormality.
--- NOTE | 2022-12-17 21:18 | XRR_ITS ---
PROCEDURE INFORMATION: Exam: XR Chest Exam date and time: 12/17/2022 9:41 PM Age: 57 years old Clinical indication: Fever TECHNIQUE: Imaging protocol: Radiologic exam of the chest. Views: 1 view. COMPARISON: CR XR chest 1V portable [id number] 06/12/2021 5:59 PM FINDINGS: Lungs: Mild pulmonary vascular congestion. Bibasilar atelectasis versus minimal infiltrate. Pleural spaces: Unremarkable. No pleural effusion. No pneumothorax. Heart/Mediastinum: Cardiomegaly. Bones/joints: Unremarkable. XR/XR chest 1V portable [id number] IMPRESSION: 1. Cardiomegaly. 2. Mild pulmonary vascular congestion. 3. Bibasilar atelectasis versus minimal infiltrate.
--- NOTE | 2022-12-17 21:19 | ED_ITS ---
Documented by User: KEVIN Goncalves 12/18/22 03:00 HPI - Fall General: Chief Complaint: Fall Stated Complaint: FALL Time Seen by Provider: 12/17/22 21:05 History of Present Illness: Patient is a 57-year-old male comes to the ED after fall. Past medical history of BPH, CKDand has peritoneal dialysis, diabetes, CHF, hypertension, HIV disease, hyperlipidemia. Fall occurred just prior to arrival. Patient says he was in his bathroom and slipped on the floor causing him to fall forward and his head hit his vanity. Denies any loss of consciousness, headache or vomiting. Patient is on a blood thinner. Patient is also complaining of having a fever and chills for the past 2 days along with increased urine frequency and unable to fully empty bladder. Denies any chest pain, shortness of breath, abdominal pain, nausea/vomiting, bowel symptoms, hematuria or dysuria. Associated symptoms-after fall: Denies abdominal pain, chest pain, headache(s), hematuria or neck pain Review of Systems Const: Reports: fever(s) and chills; Denies: fatigue Eyes: Denies: change in vision or eye discomfort ENMT: Denies: throat pain, odynophagia, nasal discharge or nasal congestion Card: Denies: chest pain, palpitations, edema, swelling of feet/ankles, dyspnea on exertion or orthopnea Resp: Denies: dyspnea, productive cough or non-productive cough GI: Denies: abdominal pain, nausea, vomiting, diarrhea, constipation or hematochezia : Reports: urinary frequency; Denies: flank pain, difficulty urinating, dysuria or hematuria Musc: Denies: neck pain, back pain or extremity swelling Skin/Breast: Denies: rash or new lesions Neuro: Denies: headache(s), numbness in extremities or weakness in extremities PFSH ED PFSH: Medical History BPH (benign prostatic hyperplasia) Chronic ulcer of left foot with fat layer exposed CKD (chronic kidney disease) (Unknown) per patient attributed to vancomycin toxicity, no kidney biopsy Congestive cardiac failure (Unknown) Diabetes Diabetic peripheral neuropathy associated with type 2 diabetes mellitus HIV disease Hypertension Mixed hyperlipidemia Surgical History H/O foot surgery History of colonoscopy 2011 Peritoneal dialysis catheter in situ (09/23/21) S/P ureteral stent placement Family History Father Hypertension Mother Hypertension Brother Cancer NON HODGKINS Other CAD (coronary artery disease) Diabetes Social History Smoking and tobacco status: never smoked Alcohol intake: never Marital status: Current occupational status: employed Physical Exam Const: COMMON NORMALS: patient oriented x3 NUTRITIONAL APPEARANCE: obese morbidly obese HENMT: COMMON NORMALS: normocephalic HEAD & SCALP: normocephalic MOUTH: Normal oral and palatal mucosa present THROAT: posterior oropharynx normal and uvula midline Eye: COMMON NORMALS: Equal, round and reactive pupils present and EOMs intact bilaterally GENERAL EYE: appearance normal, both eyes and all related structures PUPIL: Yes Equal, round and reactive pupils present Neck/C-Spine: COMMON NORMALS: supple GENERAL: Yes normal visual inspection Lymph: LYMPHATIC: no lymphadenopathy noted Resp: COMMON NORMALS: normal respiratory effort, No retractions, No use of accessory muscles and clear to auscultation bilaterally AUSCULTATION: clear to auscultation bilaterally Cardio: COMMON NORMALS: regular rate, regular rhythm, S1 normal heart sound present, S2 normal heart sound present, No gallops present (Cardio), No clicks present (Cardio), No murmurs present (Cardio) and Peripheral pulses 2+ throughout RATE: regular rate RHYTHM: regular rhythm HEART SOUNDS: S1 normal heart sound present and S2 normal heart sound present PERIPHERAL PULSES: Peripheral pulses 2+ throughout GI: COMMON NORMALS: Normal to inspection, nondistended, normoactive bowel sounds present, Soft to palpation, non-tender and no masses PALPATION: Yes Soft to palpation : COMMON NORMALS: Yes no CVA tenderness BLADDER/KIDNEY EXAM: Yes no CVA tenderness Back/Pelvis: COMMON NORMALS: no CVA tenderness Extremity: GENERAL: Yes normal exam except as noted Neuro: COMMON NORMALS: patient oriented x3, CN's II-XII intact bilaterally, moves all extremities, no focal motor deficits and no sensory deficits noted SENSORY EXAM: Yes extremities (intact) MOTOR EXAM: 5/5 motor strength present throughout Skin: COMMON NORMALS: no rashes or lesions noted GENERAL SKIN EXAM: no rashes or lesions noted and dry skin Course Vital Signs: Vital signs: Vital Signs Temperature 97.7 F 12/24/22 12:50 Pulse Rate 60 12/24/22 12:50 Respiratory Rate 12 12/24/22 12:50 Blood Pressure 159/75 12/24/22 12:50 Pulse Oximetry 95 12/24/22 12:50 Oxygen Delivery Me thod Room Air 12/24/22 11:17 Oxygen Flow Rate 2.5 12/22/22 16:00 MDM - Fall Medical Decision Making Patient is a 57-year-old male comes to the ED after fall. Past medical history of BPH, CKDand has peritoneal dialysis, diabetes, CHF, hypertension, HIV disease, hyperlipidemia. Fall occurred just prior to arrival. Patient says he was in his bathroom and slipped on the floor causing him to fall forward and his head hit his vanity. Denies any loss of consciousness, headache or vomiting. Patient is on a blood thinner. Patient is also complaining of having a fever and chills for the past 2 days along with increased urine frequency and unable to fully empty bladder. Denies any chest pain, shortness of breath, abdominal pain, nausea/vomiting, bowel symptoms, hematuria or dysuria. Patient on 2 L of O2 and his O2 saturation is around 96%. Rest of vitals are stable and patient's afebrile. Patient is morbidly obese and appears in no acute distress or pain. White blood cell count 26.9 and BUN 102 and creatinine was 5.2. Chest x-ray sh ows mild pulmonary vascular congestion and cardiomegaly. Head CT shows no acute intracranial findings. CT of abdomen pelvis shows hyperdense fluid in the left abdomen concerning for underlying blood products, but rest of CT unremarkable. UA unremarkable. Peritoneal fluid analysis pending in the lab. Patient signed out to Dr. Patten and he will be managing the dispo of patient pending peritoneal fluid analysis. Lab Data I reviewed the patient's lab results. 12/23/22 06:47 12/24/22 05:[address] 12/17/22 21:18 IMPRESSION: No acute intracranial abnormality. 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 Marked dorsal soft tissue edema. Systemic causes versus cellulitis considered. Abdomen/Pelvis CT 12/18/22 15:14 IMPRESSION: 1. Small amount of free air in the upper abdomen, may be secondary to the presence of a dialysis catheter, however, other considerations include a perforated viscus among other etiologies, however, no source of potential perforation is seen. 2. Layering hyperdense material in the stomach, somewhat concerning for contrast extravasation from gastrointestinal bleeding, please correlate clinically as no definite active contrast extravasation is seen. 3. Left adrenal 26 mm partially calcified likely benign nodule. 4. Possible cirrhotic liver. 5. Subcutaneous edema about the abdomen and pelvis left greater than right. 6. Hepatic steatosis. 7. Small to moderate ascites in the abdomen pelvis. ADDENDUM: 12/18/22 [id number] THIS REPORT CONTAINS FINDINGS THAT MAY BE CRITICAL TO PATIENT CARE. The findings were verbally communicated via telephone conference with LEON MADSEN at 4:47 PM CDT on 12/18/2022. The findings were acknowledged and understood. We discussed an attempt was made to give the patient oral contrast which was incomplete. In light of this, the hyperdense material in the stomach may reflect a small amount of ingested oral contrast. Abdomen X-Ray 12/19/22 07:22 IMPRESSION: Nonspecific bowel pattern. C-Arm Fluoroscopy 12/21/22 13:15 Impression: Insertion right dialysis catheter. Chest X-Ray 12/21/22 14:01 IMPRESSION: Large caliber central venous access or dialysis catheter on the right appears in good position as noted above. Laboratory Results WBC 28.7 10^3/uL (4.0-10.0) H 12/18/22 08:04 RBC 4.42 10^6/uL (4.1-5.3) 12/18/22 08:04 Hgb 12.1 g/dL (11.7-16.6) 12/18/22 08:04 Hct 38.1 % (42.0-52.0) L 12/18/22 08:04 MCV 86.2 fl (80-94) 12/18/22 08:04 MCH 27.4 pg (28.0-34.0) L 12/18/22 08:04 MCHC 31.8 g/dL (30.0-36.0) 12/18/22 08:04 RDW 17.7 % (12.1-15.1) H 12/18/22 08:04 Plt Count 245 10^3/cmm (130-400) 12/18/22 08:04 MPV 9.8 fL (7.4-10.4) 12/18/22 08:04 Neut % (Auto) 88.0 % 12/18/22 08:04 Lymph % (Auto) 6.8 % 12/18/22 08:04 [place] % (Auto) 2.9 % 12/18/22 08:04 Eos % (Auto) 0.3 % 12/18/22 08:04 Baso % (Auto) 0.2 % 12/18/22 08:04 Neut # (Auto) 25.22 10^3/uL (1.8-7.7) H 12/18/22 08:04 Lymph # (Auto) 2.0 10^3/uL (0.8-4.8) 12/18/22 08:04 [place] # (Auto) 0.8 10^3/uL (0.2-0.9) 12/18/22 08:04 Eos # (Auto) 0.1 10^3/uL (0.0-0.8) 12/18/22 08:04 Baso # (Auto) 0.1 10^3/uL (0.0-0.1) 12/18/22 08:04 Nucleated RBC % (auto) 0 % 12/18/22 08:04 Nucleated RBCs # 0.0 /100WBC 12/18/22 08:04 ESR 51 mm/hr (0-10) H 12/17/22 22:17 Sodium 133 mmol/L (136-145) L 12/18/22 08:04 Potassium 4.3 mmol/L (3.5-5.1) 12/18/22 08:04 Chloride 89 mmol/L (98-107) L 12/18/22 08:04 Carbon Dioxide 25 mmol/L (22-29) 12/18/22 08:04 Anion Gap 23.3 (5-19) H 12/18/22 08:04 BUN 103 mg/dL (6-20) H* 12/18/22 08:04 Creatinine 5.0 mg/dL (0.7-1.2) H 12/18/22 08:04 GFR Calculation 12.0 mL/min (90-130) L 12/18/22 08:04 Glucose 252 mg/dL (65-115) H 12/18/22 08:04 Calculated Osmolality 317 mOsm/kg (285-295) H 12/18/22 08:04 Calcium 8.4 mg/dL (8.5-10.5) L 12/18/22 08:04 Total Bilirubin 1.7 mg/dL (0.15-1.2) H 12/18/22 08:04 AST 15 U/L (0-40) 12/18/22 08:04 ALT 17 U/L (0-41) 12/18/22 08:04 Alkaline Phosphatase 113 U/L (40-130) 12/18/22 08:04 C-Reactive Protein 85.6 mg/L (0.0-4.9) H 12/17/22 22:17 Total Protein 7.2 g/dL (6.6-8.7) 12/18/22 08:04 Albumin 3.1 g/dL (3.5-5.2) L 12/18/22 08:04 Globulin 4.1 g/dL (1.3-4.6) 12/18/22 08:04 Lipase 68 U/L (13-60) H 12/18/22 08:04 Procalcitonin 0.33 ng/mL (0-0.5) 12/17/22 22:17 Urine Color Yellow (Yellow) 12/18/22 00:35 Urine Appearance Clear (CLEAR) 12/18/22 00:35 Urine pH 5 (5-7) 12/18/22 00:35 Ur Specific [place] 1.010 (1.005-1.030) 12/18/22 00:35 Urine Protein Neg (Negative) 12/18/22 00:35 Urine Glucose (UA) 1+ (Normal) H 12/18/22 00:35 Urine Ketones Negative (Negative) 12/18/22 00:35 Urine Blood Neg (Negative) 12/18/22 00:35 Urine Nitrate Negative (Negative) 12/18/22 00:35 Urine Bilirubin Neg (Negative) 12/18/22 00:35 Urine Urobilinogen Norm mg/dL (Negative) 12/18/22 00:35 Ur Leukocyte Esterase Negative (Negative) 12/18/22 00:35 Peritoneal Color Pale yellow (Pale Yellow) 12/18/22 03:05 Peritoneal Appearance Hazy (Clear) 12/18/22 03:05 Peritoneal pH 9.0 12/18/22 03:05 Peritoneal WBC 82 /uL 12/18/22 03:05 Peritoneal RBC 0 10^3/uL 12/18/22 03:05 Periton Mononu # Auto 0.059 10^3/uL 12/18/22 03:05 Mononuclear WBCs % 72.000 % 12/18/22 03:05 Polynuclear WBCs % 28.000 % 12/18/22 03:05 Perit Polynuc WBCs # 0.023 10^3/uL 12/18/22 03:05 Peritoneal Tot Protein 0.4 g/dL 12/18/22 03:05 Peritoneal Albumin 0.3 g/dL 12/18/22 03:05 Peritoneal LDH 14.0 U/L 12/18/22 03:05 Peritoneal Glucose 162.0 mg/dL 12/18/22 03:05 Coronavirus 229E (PCR) Not detected (NOT DETECT) 12/17/22 21:41 Influenza Type A Ag negative (Negative) 12/17/22 21:41 Influenza Type B Ag negative (Negative) 12/17/22 21:41 SARS-CoV-2 (PCR) Not detected (NOT DETECT) 12/17/22 21:41 Discharge Plan Discharge Patient Disposition: Admitted As Inpatient Admit Provider: Leon Madsen Clinical Impression: Leukocytosis, Generalized weakness, Nausea and vomiting Condition: Stable Discharge Diet: As Directed Sign Out Sign Out Data: Patient Sign Out occurred on 12/18/22 at 03:28. Patient's care was discussed, and care was transferred from to Erik Patten MD. Coding Level of Care Code ED Operator Cavity Pump for Chg Fwd Documented by User: Erik Patten MD 12/25/22 03:41 HPI - Fall General: Chief Complaint: Fall Stated Complaint: FALL Time Seen by Provider: 12/17/22 21:05 PFSH ED PFSH: Medical History BPH (benign prostatic hyperplasia) Chronic ulcer of left foot with fat layer exposed CKD (chronic kidney disease) (Unknown) per patient attributed to vancomycin toxicity, no kidney biopsy Congestive cardiac failure (Unknown) Diabetes Diabetic peripheral neuropathy associated with type 2 diabetes mellitus HIV disease Hypertension Mixed hyperlipidemia Surgical History H/O foot surgery History of colonoscopy 2010 Peritoneal dialysis catheter in situ (09/23/21) S/P ureteral stent placement Family History Father Hypertension Mother Hypertension Brother Cancer NON HODGKINS Other CAD (coronary artery disease) Diabetes Social History Smoking and tobacco status: never smoked Alcohol intake: never Marital status: Current occupational status: employed Course Vital Signs: Vital signs: Vital Signs Temperature 97.7 F 12/24/22 12:50 Pulse Rate 60 12/24/22 12:50 Respiratory Rate 12 12/24/22 12:50 Blood Pressure 159/75 12/24/22 12:50 Pulse Oximetry 95 12/24/22 12:50 Oxygen Delivery Me thod Room Air 12/24/22 11:17 Oxygen Flow Rate 2.5 12/22/22 16:00 MDM - Fall Medical Decision Making Patient is a 57-year-old male comes to the ED after fall. Past medical history of BPH, CKDand has peritoneal dialysis, diabetes, CHF, hypertension, HIV disease, hyperlipidemia. Fall occurred just prior to arrival. Patient says he was in his bathroom and slipped on the floor causing him to fall forward and his head hit his vanity. Denies any loss of consciousness, headache or vomiting. Patient is on a blood thinner. Patient is also complaining of having a fever and chills for the past 2 days along with increased urine frequency and unable to fully empty bladder. Denies any chest pain, shortness of breath, abdominal pain, nausea/vomiting, bowel symptoms, hematuria or dysuria. Patient on 2 L of O2 and his O2 saturation is around 96%. Rest of vitals are stable and patient's afebrile. Patient is morbidly obese and appears in no acute distress or pain. White blood cell count 26.9 and BUN 102 and creatinine was 5.2. Chest x-ray shows mild pulmonary vascular congestion and cardiomegaly. Head CT shows no acute intracranial findings. CT of abdomen pelvis shows hyperdense fluid in the left abdomen concerning for underlying blood products, but rest of CT unremarkable. UA unremarkable. Peritoneal fluid analysis pending in the lab. Patient signed out to Dr. Patten and he will be managing the dispo of patient pending peritoneal fluid analysis. I discussed this case with KEVIN Goncalves. I reviewed documentation and personally reperformed price portions of E/M. I reviewed laboratory studies and imaging. On reassessment patient feels worse and now experienced nausea and vomiting. Nephrology consulted. The results of ED evaluation were discussed with the patient including plan for admission due to requirement for level of care not available if discharged to prevent significant worsening/deterioration. Patient agreeable with plan. Discussed with hospitalist service who was agreeable to admit patient. Erik Patten MD Emergency Medicine Lab Data 12/23/22 06:47 12/24/22 05:[address] 12/17/22 21:18 IMPRESSION: No acute intracranial abnormality. 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 Marked dorsal soft tissue edema. Systemic causes versus cellulitis considered. Abdomen/Pelvis CT 12/18/22 15:14 IMPRESSION: 1. Small amount of free air in the upper abdomen, may be secondary to the presence of a dialysis catheter, however, other considerations include a perforated viscus among other etiologies, however, no source of potential perforation is seen. 2. Layering hyperdense material in the stomach, somewhat concerning for contrast extravasation from gastrointestinal bleeding, please correlate clinically as no definite active contrast extravasation is seen. 3. Left adrenal 26 mm partially calcified likely benign nodule. 4. Possible cirrhotic liver. 5. Subcutaneous edema about the abdomen and pelvis left greater than right. 6. Hepatic steatosis. 7. Small to moderate ascites in the abdomen pelvis. ADDENDUM: 12/18/22 1882 THIS REPORT CONTAINS FINDINGS THAT MAY BE CRITICAL TO PATIENT CARE. The findings were verbally communicated via telephone conference with LEON MADSEN at 4:47 PM CDT on 12/18/2022. The findings were acknowledged and understood. We discussed an attempt was made to give the patient oral contrast which was incomplete. In light of this, the hyperdense material in the stomach may reflect a small amount of ingested oral contrast. Abdomen X-Ray 12/19/22 07:22 IMPRESSION: Nonspecific bowel pattern. C-Arm Fluoroscopy 12/21/22 13:15 Impression: Insertion right dialysis catheter. Chest X-Ray 12/21/22 14:01 IMPRESSION: Large caliber central venous access or dialysis catheter on the right appears in good position as noted above. Laboratory Results WBC 28.7 10^3/uL (4.0-10.0) H 12/18/22 08:04 RBC 4.42 10^6/uL (4.1-5.3) 12/18/22 08:04 Hgb 12.1 g/dL (11.7-16.6) 12/18/22 08:04 Hct 38.1 % (42.0-52.0) L 12/18/22 08:04 MCV 86.2 fl (80-94) 12/18/22 08:04 MCH 27.4 pg (28.0-34.0) L 12/18/22 08:04 MCHC 31.8 g/dL (30.0-36.0) 12/18/22 08:04 RDW 17.7 % (12.1-15.1) H 12/18/22 08:04 Plt Count 245 10^3/cmm (130-400) 12/18/22 08:04 MPV 9.8 fL (7.4-10.4) 12/18/22 08:04 Neut % (Auto) 88.0 % 12/18/22 08:04 Lymph % (Auto) 6.8 % 12/18/22 08:04 [place] % (Auto) 2.9 % 12/18/22 08:04 Eos % (Auto) 0.3 % 12/18/22 08:04 Baso % (Auto) 0.2 % 12/18/22 08:04 Neut # (Auto) 25.22 10^3/uL (1.8-7.7) H 12/18/22 08:04 Lymph # (Auto) 2.0 10^3/uL (0.8-4.8) 12/18/22 08:04 [place] # (Auto) 0.8 10^3/uL (0.2-0.9) 12/18/22 08:04 Eos # (Auto) 0.1 10^3/uL (0.0-0.8) 12/18/22 08:04 Baso # (Auto) 0.1 10^3/uL (0.0-0.1) 12/18/22 08:04 Nucleated RBC % (auto) 0 % 12/18/22 08:04 Nucleated RBCs # 0.0 /100WBC 12/18/22 08:04 ESR 51 mm/hr (0-10) H 12/17/22 22:17 Sodium 133 mmol/L (136-145) L 12/18/22 08:04 Potassium 4.3 mmol/L (3.5-5.1) 12/18/22 08:04 Chloride 89 mmol/L (98-107) L 12/18/22 08:04 Carbon Dioxide 25 mmol/L (22-29) 12/18/22 08:04 Anion Gap 23.3 (5-19) H 12/18/22 08:04 BUN 103 mg/dL (6-20) H* 12/18/22 08:04 Creatinine 5.0 mg/dL (0.7-1.2) H 12/18/22 08:04 GFR Calculation 12.0 mL/min (90-130) L 12/18/22 08:04 Glucose 252 mg/dL (65-115) H 12/18/22 08:04 Calculated Osmolality 317 mOsm/kg (285-295) H 12/18/22 08:04 Calcium 8.4 mg/dL (8.5-10.5) L 12/18/22 08:04 Total Bilirubin 1.7 mg/dL (0.15-1.2) H 12/18/22 08:04 AST 15 U/L (0-40) 12/18/22 08:04 ALT 17 U/L (0-41) 12/18/22 08:04 Alkaline Phosphatase 113 U/L (40-130) 12/18/22 08:04 C-Reactive Protein 85.6 mg/L (0.0-4.9) H 12/17/22 22:17 Total Protein 7.2 g/dL (6.6-8.7) 12/18/22 08:04 Albumin 3.1 g/dL (3.5-5.2) L 12/18/22 08:04 Globulin 4.1 g/dL (1.3-4.6) 12/18/22 08:04 Lipase 68 U/L (13-60) H 12/18/22 08:04 Procalcitonin 0.33 ng/mL (0-0.5) 12/17/22 22:17 Urine Color Yellow (Yellow) 12/18/22 00:35 Urine Appearance Clear (CLEAR) 12/18/22 00:35 Urine pH 5 (5-7) 12/18/22 00:35 Ur Specific [place] 1.010 (1.005-1.030) 12/18/22 00:35 Urine Protein Neg (Negative) 12/18/22 00:35 Urine Glucose (UA) 1+ (Normal) H 12/18/22 00:35 Urine Ketones Negative (Negative) 12/18/22 00:35 Urine Blood Neg (Negative) 12/18/22 00:35 Urine Nitrate Negative (Negative) 12/18/22 00:35 Urine Bilirubin Neg (Negative) 12/18/22 00:35 Urine Urobilinogen Norm mg/dL (Negative) 12/18/22 00:35 Ur Leukocyte Esterase Negative (Negative) 12/18/22 00:35 Peritoneal Color Pale yellow (Pale Yellow) 12/18/22 03:05 Peritoneal Appearance Hazy (Clear) 12/18/22 03:05 Peritoneal pH 9.0 12/18/22 03:05 Peritoneal WBC 82 /uL 12/18/22 03:05 Peritoneal RBC 0 10^3/uL 12/18/22 03:05 Periton Mononu # Auto 0.059 10^3/uL 12/18/22 03:05 Mononuclear WBCs % 72.000 % 12/18/22 03:05 Polynuclear WBCs % 28.000 % 12/18/22 03:05 Perit Polynuc WBCs # 0.023 10^3/uL 12/18/22 03:05 Peritoneal Tot Protein 0.4 g/dL 12/18/22 03:05 Peritoneal Albumin 0.3 g/dL 12/18/22 03:05 Peritoneal LDH 14.0 U/L 12/18/22 03:05 Peritoneal Glucose 162.0 mg/dL 12/18/22 03:05 Coronavirus 229E (PCR) Not detected (NOT DETECT) 12/17/22 21:41 Influenza Type A Ag negative (Negative) 12/17/22 21:41 Influenza Type B Ag negative (Negative) 12/17/22 21:41 SARS-CoV-2 (PCR) Not detected (NOT DETECT) 12/17/22 21:41 Discharge Plan Discharge Patient Disposition: Admitted As Inpatient Admit Provider: Leon Madsen Clinical Impression: Leukocytosis, Generalized weakness, Nausea and vomiting Condition: Stable Discharge Diet: As Directed Sign Out Sign Out Data: Patient Sign Out occurred on 12/18/22 at 03:28. Patient's care was discussed, and care was transferred from to Erik Patten MD. Coding Level of Care Code ED Operator Cavity Pump for Fred Ashford
[2022-12-17 22:12] LABS: Influenza A by IFA negative (Negative); Influenza B by IFA negative (Negative)
[2022-12-17 22:38] LABS: Alanine Aminotransferase 17 U/L (0-41); Albumin Level 3.2 g/dL (3.5-5.2); Alkaline Phosphatase 83 U/L (40-130); Anion Gap 18.7 (5-19); Aspartate Amino Transferase 13 U/L (0-40); Calcium 7.9 mg/dL (8.5-10.5); Carbon Dioxide 27 mmol/L (22-29); Chloride 89 mmol/L (98-107); Globulin 3.6 g/dL (1.3-4.6); Glomerular Filtration Rate 11.5 mL/min (90-130); Glucose 158 mg/dL (65-115); Osmolality Calculated 305 mOsm/kg (285-295); Potassium 4.7 mmol/L (3.5-5.1); Sodium 130 mmol/L (136-145); Total Bilirubin 1.3 mg/dL (0.15-1.2); Total Protein 6.8 g/dL (6.6-8.7)
[2022-12-17 22:40] LABS: Basophils # 0.1 10^3/uL (0.0-0.1); Basophils % 0.2 %; Blood Urea Nitrogen 102 mg/dL (6-20); Eosinophils # 0.1 10^3/uL (0.0-0.8); Eosinophils % 0.2 %; Hematocrit 35.6 % (42.0-52.0); Hemoglobin 11.5 g/dL (11.7-16.6); Lymphocytes # 1.7 10^3/uL (0.8-4.8); Lymphocytes % 6.2 %; Mean Corpuscular HGB Conc 32.3 g/dL (30.0-36.0); Mean Corpuscular Hemoglobin 27.6 pg (28.0-34.0); Mean Corpuscular Volume 85.6 fl (80-94); Mean Platelet Volume 9.7 fL (7.4-10.4); Monocytes # 1.4 10^3/uL (0.2-0.9); Monocytes % 5.2 %; Neutrophils # 23.17 10^3/uL (1.8-7.7); Neutrophils % 86.3 %; Nucleated Red Blood Cells % 0 %; Platelet Count 243 10^3/cmm (130-400); Red Blood Count 4.16 10^6/uL (4.1-5.3); Red Cell Distribution Width 17.5 % (12.1-15.1); White Blood Count 26.9 10^3/uL (4.0-10.0)
[2022-12-17 22:44] VITALS: BP 151/60; PULSE 67; RESP 18; O2SAT 96
--- NOTE | 2022-12-17 23:34 | CTR_ITS ---
PROCEDURE INFORMATION: Exam: CT Abdomen And Pelvis Without Contrast Exam date and time: 12/17/2022 11:48 PM Age: 57 years old Clinical indication: Abnormal findings; Abnormal lab test; Elevated wbc; Prior surgery; Surgery type: Peritoneal dialysis cath; Patient HX: Fever with wbc of 27k. History of ckd. ; Additional info: Fever, UTI symptoms, wbc 26.9 TECHNIQUE: Imaging protocol: Computed tomography of the abdomen and pelvis without contrast. Radiation optimization: All CT scans at this facility use at least one of these dose optimization techniques: automated exposure control; mA and/or kV adjustment per patient size (includes targeted exams where dose is matched to clinical indication); or iterative reconstruction. REPORTING DATA: Count of CT and Cardiac NM exams in prior 12 months: This patient has received [address] and 0 known cardiac nuclear medicine studies in the 12 months prior to the current study. COMPARISON: CT abdomen pelvis con [id number] 08/16/2019 4:14 PM RADIATION DOSE METRICS: Total DLP (mGy-cm): 1731.73 FINDINGS: Tubes, catheters and devices: Percutaneous catheter with tip coiled in the pelvis. Liver: Normal. No mass. Gallbladder and bile ducts: Normal. No calcified stones. No ductal dilation. Pancreas: Normal. No ductal dilation. Spleen: Spleen enlarged to 18 cm. Adrenal glands: Normal. No mass. Kidneys and ureters: Normal. No hydronephrosis. Stomach and bowel: Unremarkable. No obstruction. No mucosal thickening. Appendix: No evidence of appendicitis. Intraperitoneal space: Somewhat hyperdense fluid in the left abdomen/upper pelvis, somewhat concerning for underlying blood products, please correlate clinically, CT with intravenous contrast could further evaluate this as clinically indicated. Moderate ascites in the abdomen. Vasculature: Unremarkable. No abdominal aortic aneurysm. Lymph nodes: Bilateral subcentimeter inguinal lymph nodes, nonspecific. Urinary bladder: Unremarkable as visualized. Reproductive: Unremarkable as visualized. Bones/joints: Unremarkable. No acute fracture. Soft tissues: Anasarca. CT/CT abdomen pelvis wo con [id number] IMPRESSION: 1. Somewhat hyperdense fluid in the left abdomen/upper pelvis, somewhat concerning for underlying blood products, please correlate clinically, CT with intravenous contrast could further evaluate this as clinically indicated. 2. Percutaneous catheter with tip coiled in the pelvis. 3. Anasarca. 4. Bilateral subcentimeter inguinal lymph nodes, nonspecific. 5. Moderate ascites in the abdomen. 6. Spleen enlarged to 18 cm.
[2022-12-18] VITALS (14 sets, daily range): BP systolic 143–184; BP diastolic 66–82; PULSE 68–100; RESP 14–22; TEMP 36.7–37.2; O2SAT 89–98
[2022-12-18 00:36] LABS: Adenovirus Not Detected (NOT DETECT); Chlamydia Pneumoniae Not Detected (NOT DETECT); Coronavirus 229E,HKU1,NL63,OC4 Not Detected (NOT DETECT); Human Metapneumovirus Not Detected (NOT DETECT); Human Rhinovirus/Enterovirus Not Detected (NOT DETECT); Influenza A Not Detected (NOT DETECT); Influenza A H1 Not Detected (NOT DETECT); Influenza A H1-2009 Not Detected (NOT DETECT); Influenza A H3 Not Detected (NOT DETECT); Influenza B Not Detected (NOT DETECT); Mycoplasma Pneumoniae Not Detected (NOT DETECT); Parainfluenza Virus Type 1 Not Detected (NOT DETECT); Parainfluenza Virus Type 2 Not Detected (NOT DETECT); Parainfluenza Virus Type 3 Not Detected (NOT DETECT); Parainfluenza Virus Type 4 Not Detected (NOT DETECT); Respiratory Syncytial Virus A Not Detected (NOT DETECT); Respiratory Syncytial Virus B Not Detected (NOT DETECT); SARS-COV-2 Not Detected (NOT DETECT)
[2022-12-18 00:43] LABS: Add Urine Microscopic? NO; Charge for UA Resulting for Rev
[2022-12-18 00:58] LABS: Bilirubin Urine Neg (Negative); Blood Urine Neg (Negative); Glucose Urine UA 1+ (Normal); Ketones Urine Negative (Negative); Leukocyte Esterase Urine Negative (Negative); Nitrate Urine Negative (Negative); Protein Urine Neg (Negative); Urine Appearance Clear (CLEAR); Urine Color Yellow (Yellow); Urobilinogen Urine Norm (Negative); pH Urine 5 (5-7)
[2022-12-18] MEDS: sodium chloride 0.9% 500 ML IV (02:28)
[2022-12-18] MEDS: ondansetron 2 mg/ML SDV 2 mL 4 MG IVP ×4 (02:28→23:02)
[2022-12-18 03:12] LABS: Cyto Order Verification No Order
[2022-12-18 03:13] LABS: Appearance, Peritoneal Fluid Hazy (Clear); Color, Peritoneal Fluid Pale Yellow (Pale Yellow)
[2022-12-18 03:24] LABS: Mononuclear #, Pertinoneal Fl 0.059 10^3/uL; Polynuclear # Cells, Perit 0.023 10^3/uL
[2022-12-18 04:04] LABS: Albumin Peritoneal Fluid 0.3 g/dL; Total Protein Peritoneal Fluid 0.4 g/dL
[2022-12-18 04:05] LABS: RBC Pertioneal Fluid 0 10^3/uL; WBC Peritoneal Fluid 82 /uL
[2022-12-18 04:47] LABS: Erythrocyte Sedimentation Rate 51 mm/hr (0-10)
[2022-12-18 04:57] LABS: C Reactive Protein 85.6 mg/L (0.0-4.9)
[2022-12-18 05:05] LABS: Procalcitonin 0.33 ng/mL (0-0.5)
--- NOTE | 2022-12-18 07:59 | PC.PHAR ---
Addendum entered by Amy Velasquez 12/18/22 08:16: pts uses [facility] [phone] terence nurse will fax med list on pts heparin- terence states the heparin is not absorbed systemically states he uses 3ml each bag bid Original Note: pt states he takes care of his own meds-pt states he is taking calcium acetate (phosphat bind) 667 1 cap po tid with meals (trial this until dr junior) filled 12/10/22 ext also shows sevelamer carb 800mg tid with meals filled 12/10/22 30d/s pt states doesnt takes sevelamer-pt states he was taking iron shots from [facility] but states not had for a while states the dr told him his levels were back to normal-pt states he uses heparin with pd solution bid waiting for [facility] to open to verify-
--- NOTE | 2022-12-18 08:21 | USCV_ITS ---
Say Wagner Age: 57 Gender: M : 1965 Exam Date: 12/18/2022 09:01 Ordering Phys: Scot Zuñiga MD Technologist: Izaiah Ibrahim [place] [facility] [place]: edema PROCEDURES: Venous duplex imaging was performed in bilateral lower extremities. Bilaterally, the common femoral, superficial femoral, profunda femoral, popliteal, posterior tibial, greater saphenous veins, and the peroneal trunk were identified and interrogated in the standard fashion. These veins were found to be easily compressible with spontaneous blood flow. No evidence of insufficiency or thrombus noted. On the left side, the common femoral, superficial femoral, profunda femoral, popliteal, posterior tibial, greater saphenous veins, and the peroneal trunk were identified and interrogated in the standard fashion. These veins were found to be easily compressible with spontaneous blood flow. No evidence of insufficiency or thrombus noted. Serial compression, augmentation maneuvers, and spectral Doppler flow evaluation were performed. FINDINGS: Normal 2-D Doppler and augmentation and compressibility throughout the lower extremity venous structures. Additional imaging through the proximal calf veins also reveals no thrombus. Limited evaluation of the greater saphenous vein is patent with no thrombus. Bilateral edema. CONCLUSIONS No evidence of right lower extremity DVT. No evidence of left lower extremity DVT. Russell Rashid MD (Electronically Signed) Final Date: 18 December 2022 09:27 S
--- NOTE | 2022-12-18 08:26 | XR_ITS ---
WS: [id number] EXAMINATION: XR foot LT 2V [id number] REASON FOR EXAM: ulcer, left fifth toe COMPARISON: 09/05/2021 ORDER DATE: 12/18/2022 8:26 AM X-RAY FINDINGS: There is amputation of the distal aspect of the left fifth metatarsal. There is a bunion at the head of the left first metatarsal. There is marked soft tissue swelling on the dorsum of the foot. This exceeds soft tissue swelling pre sent on the prior study. 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 Marked dorsal soft tissue edema. Systemic causes versus cellulitis considered.
--- NOTE | 2022-12-18 08:32 | PM.HP ---
Providers/Chief Complaint Admitting Physician: Scot Zuñiga MD Primary Care Provider: John Hernandez DO Chief Complaint: FALL History of Present Illness Say Wagner is a 57 year old male presenting to the emergency department after a fall. He states he was up urinating, in the bathroom when he fell. He does not believe he fainted. He hit his head on a cabinet. He denies any other injuries. He denies any headache, or neck pain currently. He reports for the last 2 days he has had some intermittent elevation in temperature, the highest of which has been 100.3. No cough. Has had 1 episode of vomiting today. Maybe a little bit of nausea. Some diffuse abdominal tenderness, although he reports he frequently has this. No diarrhea. No issues with dialysis lately. Usually dialyzes twice daily. Review of Systems General: Reports: 10 or more systems reviewed and unremarkable except in HPI and below Const: Reports: fever(s), chills, fatigue and malaise Card: Denies: chest pain Resp: Denies: dyspnea GI: Reports: abdominal pain, nausea and vomiting; Denies: hematochezia or melena Medications/Allergies Home Medications Medication Instructions Recorded Confirmed Last Taken Type cholecalciferol (vitamin D3) 125 125 mcg PO DAILY@11/19/20 12/18/22 09/22/21 History mcg (5,000 unit) capsule bictegravir 50 mg-emtricitabine 1 tab PO BEDTIME 07/15/21 12/18/22 09/22/21 History 200 mg-tenofovir alafenam 25 mg tablet (Biktarvy) hydralazine 50 mg tablet 50 mg PO QID 07/15/21 12/18/22 09/22/21 History loratadine 10 mg tablet 10 mg PO DAILY PRN Allergy Symptoms 03/07/22 12/18/22 Unknown History minoxidil 10 mg tablet 5 mg PO DAILY@03/07/22 12/18/22 Unknown History allopurinol 300 mg tablet 300 mg PO DAILY@04/23/22 12/18/22 Unknown History clonidine HCl 0.1 mg tablet 0.1 mg PO TID@05,12,18 04/23/22 12/18/22 Unknown History metolazone 5 mg tablet 5 mg PO DAILY@04/23/22 12/18/22 Unknown History metoprolol tartrate 100 mg tablet 150 mg PO BID 04/23/22 12/18/22 Unknown History sorbitol 70 % solution 30 ml PO BID PRN constipation 04/23/22 12/18/22 Unknown History torsemide 100 mg tablet 100 mg PO DAILY@0630 04/23/22 12/18/22 Unknown History triamcinolone acetonide 0.1 % 1 applic topical DAILY PRN rash 04/23/22 12/18/22 Unknown History topical cream tamsulosin 0.4 mg capsule 0.8 mg PO QPM #180 caps 06/20/22 12/18/22 Unknown Rx pen needle, diabetic 32 gauge x #100 ea 06/26/22 12/18/22 Unknown Rx (BD Maylin 2nd Gen Pen Needle) insulin detemir U-100 100 unit/mL See Rx Instructions .Route 12/02/22 12/18/22 Unknown Rx (3 mL) subcutaneous pen (Levemir .COMPLEX SEE PHARMACY COMMENTS #75 FlexTouch U-100 Insulin) mL calcium acetate(phosphat bind) 667 667 mg PO TIDWM 12/18/22 12/18/22 Unknown History mg capsule docusate sodium 100 mg capsule 100 mg PO BID PRN Constipation 12/18/22 12/18/22 Unknown History gentamicin 0.1 % topical cream See Rx Instructions .Route .COMPLEX 12/18/22 12/18/22 Unknown History heparin (porcine) 1,000 unit/mL See Rx Instructions .Route .COMPLEX 12/18/22 12/18/22 Unknown History injection solution potassium chloride 20 mEq 20 meq PO BID 12/18/22 12/18/22 Unknown History tablet,extended release vit B,C-folic ac 800 mcg-zinc 12.5 1 tab PO DAILY@06 12/18/22 12/18/22 Unknown History mg-selen-D3 2,000 unit-vit E tablet (RenaPlex-D) Allergies Allergy/AdvReac Type Severity Reaction Status Date / Time pioglitazone [From Actos] AdvReac Severe Unknown Verified 12/18/22 07:39 PFSH Acute PFSH: Medical History (Updated 12/18/22 @ 09:06 by Scot Zuñiga MD) BPH (benign prostatic hyperplasia) Chronic ulcer of left foot with fat layer exposed CKD (chronic kidney disease) (Unknown) per patient attributed to vancomycin toxicity, no kidney biopsy Congestive cardiac failure (Unknown) Diabetes Diabetic peripheral neuropathy associated with type 2 diabetes mellitus HIV disease Hypertension Mixed hyperlipidemia Surgical History H/O foot surgery History of colonoscopy 2010 Peritoneal dialysis catheter in situ (09/23/21) S/P ureteral stent placement Family History Father Hypertension Mother Hypertension Brother Cancer NON HODGKINS Other CAD (coronary artery disease) Diabetes Social History Smoking and tobacco status: never smoked Alcohol intake: never Marital status: Current occupational status: employed Vitals/I&O/Wt Last Vital Signs Temp 98.3 F 12/17/22 20:51 Pulse 68 12/18/22 08:06 Resp 16 12/18/22 08:06 BP 150/68 12/18/22 08:06 Pulse Ox 97 12/18/22 08:06 O2 Del Method Nasal Cannula 12/18/22 05:36 O2 Flow Rate 2 12/18/22 05:36 12/17/22 12/18/22 12/18/22 22:59 06:59 14:59 Intake Total 500 / 500 Balance 500 / 500 Weight last 48 hrs Weight 181.437 kg Physical Exam Narrative: General exam is a white male, reporting he feels tired and has some abdominal discomfort HEENT: Atraumatic and normocephalic. Oropharynx clear Neck is supple no lymphadenopathy thyromegaly Cardiovascular regular rate and rhythm with frequent premature beats Lungs clear no wheezing or crackles. Diminished breath sounds are noted bilaterally Abdomen is soft. Slight generalized tenderness. Peritoneal dialysis catheter is noted. Positive bowel sounds. exam demonstrates some tinea bilaterally Extremities 2-3+ edema. Small scab right lawrence, left fifth toe. No cyanosis or clubbing. No obvious cellulitis Data 12/18/22 08:04 12/18/22 08:04 Other Labs: Significant left shift is noted on CBC Calcium 7.9 Bilirubin 1.3, rest of LFTs normal CRP 86 Albumin 3.2 Urinalysis 1+ glucose otherwise negative Peritoneal fluid analysis demonstrated a white blood cell count of 82, predominantly mononuclear Influenza, coronavirus negative. Coronavirus was checked on PCR Chest x-ray possible bibasilar infiltrates by my read, some vascular congestion. Overall technically difficult secondary to size Head CT no acute findings. I reviewed this as well. Abdominal pelvis CT demonstrated some hyperdense fluid in the left upper abdomen/upper pelvis, report says correlate with blood products. Percutaneous catheter tip is coiled in the pelvis. Moderate ascites and splenomegaly seen. Blood cultures been obtained. I ordered a peritoneal fluid culture as well as a urine culture. I have ordered venous duplex, EKG, echo as well. Left foot x-ray is obtained secondary to ulcer. Micro: Microbiology 12/18/22 06:01 Blood Culture - Preliminary Blood SPECIMEN COLLECTED 12/18/22 05:58 Blood Culture - Preliminary Blood SPECIMEN COLLECTED A&P Assessment and plan (1) Leukocytosis: Patient with fever at home. He has some generalized abdominal tenderness. White blood cell count and peritoneal fluid is nearing 100, and although this is predominantly mononuclear must still consider peritonitis. Culture will be obtained. He will be started on linezolid and cefepime. This may also explain his fatigue, and some nausea and vomiting. Vancomycin was not used as patient attributes his current renal failure issues to its toxicity. Check lipase, although this may be slightly elevated with his degree of renal dysfunction Nephrology consultation Peritoneal dialysis catheter is coiled in pelvis. Will defer to nephrology regarding this placement. Some abnormality with density of fluid in peritoneal space. No clinical increased tenderness on left side. Blood culture and urine culture were obtained Secondary to some lower extremity ulcers, significant edema, history of fever we will check transthoracic echo. Pneumonia cannot be completely excluded on his chest x-ray, however no symptomatology regarding this is apparent. He is on 2 L of oxygen, but this may have been put on him in the emergency department prophylactically. We will determine if it is needed. Antibiotics selected above, will cover pneumonia as well. Repeat CBC tomorrow (2) Lymphedema: Patient is with significant lymphedema to his lower extremities. Check venous duplex Check echocardiogram. One in April showed diastolic dysfunction but was otherwise unremarkable (3) CKD (chronic kidney disease): Nephrology consult He is on peritoneal dialysis BMP daily (4) Diabetes: Continue long-acting insulin, reduced dose to 80 units twice daily and add sliding scale insulin (5) HIV disease: Continue his Biktarvy (6) Fall: This may be vasovagal as it happened with him urinating. Could be related to infection. We will place him on telemetry, check echocardiogram. Further evaluation depending upon these results. Plan Hypertension, continue home medications Tinea, groins. Nystatin cream twice daily Multiple other medical problems as delineated in his past medical history Full code Heparin for DVT prophylaxis Attestations Medical Necessity Statement*: Will need greater than 2 midnight stay for evaluation and treatment of significant infection causing severe leukocytosis, nausea vomiting in this patient with possible peritonitis Diagnoses Leukocytosis D72.829 Lymphedema I89.0 CKD (chronic kidney disease) N18.9 Diabetes E11.9 HIV disease B20 Fall W19.XXXA Time Spent (min) 59
[2022-12-18 08:34] LABS: Basophils # 0.1 10^3/uL (0.0-0.1); Basophils % 0.2 %; Eosinophils # 0.1 10^3/uL (0.0-0.8); Eosinophils % 0.3 %; Hematocrit 38.1 % (42.0-52.0); Hemoglobin 12.1 g/dL (11.7-16.6); Lymphocytes % 6.8 %; Mean Corpuscular HGB Conc 31.8 g/dL (30.0-36.0); Mean Corpuscular Hemoglobin 27.4 pg (28.0-34.0); Mean Corpuscular Volume 86.2 fl (80-94); Mean Platelet Volume 9.8 fL (7.4-10.4); Monocytes # 0.8 10^3/uL (0.2-0.9); Monocytes % 2.9 %; Neutrophils # 25.22 10^3/uL (1.8-7.7); Nucleated Red Blood Cells % 0 %; Platelet Count 245 10^3/cmm (130-400); Red Blood Count 4.42 10^6/uL (4.1-5.3); Red Cell Distribution Width 17.7 % (12.1-15.1); White Blood Count 28.7 10^3/uL (4.0-10.0)
--- NOTE | 2022-12-18 08:54 | USCV_ITS ---
Say Wagner Age: 57 Gender: M : 1965 Exam Date: 12/18/2022 09:19 Ordering Phys: Scot Zuñiga MD Technologist: IVA [place] [facility] [place]: EDE[place] BP: 147 / 80 HR: 76 Rhythm: Sinus Technical Quality: Poor because of body habitus MEASUREMENTS (Male / Female) Normal Values 2D ECHO LVOT Diameter 2.0 cm LV Ejection Fraction MOD 2C 59.9 % LV Ejection Fraction 2C AL 60.1 % LA Diameter 5.1 cm LA Width 4.4 cm LA Height 6.3 cm RA Width 3.9 cm RA Height 6.3 cm Aorta at Sinotubular Diameter 2.5 cm IVC Diameter 2.1 cm M-MODE Aortic Annulus Diameter 3.5 cm LA Ao Ratio MM 1.6 MV E Point Septal Separation 0.9 cm DOPPLER AV Peak Velocity 177.0 cm/s LVOT Peak Velocity 125.0 cm/s AV Area Cont Eq vti 2.1 cm squared AV Area Cont Eq pk 2.2 cm squared MV Peak Velocity 137.0 cm/s MV Area PHT 2.8 cm squared Mitral E to A Ratio 1.1 MV E' Velocity 75.0 cm/s Mitral E to MV E' Ratio 13.1 Mitral E to LV E' Lateral Ratio 12.8 Mitral E to LV E' Septal Ratio 13.3 TR Peak Velocity 199.3 cm/s TR Peak Gradient 15.9 mmHg TR Mean Velocity 148.1 cm/s TR Mean Gradient 9.7 mmHg TR Velocity Time Integral 48.8 cm TV Peak E Velocity 59.0 cm/s Right Atrial Pressure 8.0 mmHg Pulmonary Artery Systolic Pressu 23.9 mmHg PV Peak Velocity 157.0 cm/s RV Acceleration Time 0.1 s RV Ejection Time 0.4 s RV AcT/ET 0.4 FINDINGS Left Ventricle Left ventricle is normal in size. LV systolic function is normal with EF of 55 to 60%. No regional wall motion abnormalities are seen. Right Ventricle Normal in size and function Right Atrium Normal in size Left Atrium Normal in size Mitral Valve Moderate mitral annular calcification. Trace mitral regurgitation. Aortic Valve Aortic valve is thickened and calcified. No significant stenosis or regurgitation. Tricuspid Valve Mild tricuspid regurgitation. Pulmonary artery systolic pressure is normal. Pulmonic Valve Not well-visualized. Trace pulmonic regurgitation. Pericardium Normal Aorta Normal in size IVC Appears to be normal CONCLUSIONS LV systolic function is normal with EF 55 to 60% Trace mitral regurgitation Mild tricuspid regurgitation Trace pulmonic regurgitation Compared to prior echocardiogram from 04/2022, no significant changes are noted. Edgar Cottrell MD (Electronically Signed) Final Date: 19 December 2022 09:40 S
[2022-12-18 09:02] LABS: Alanine Aminotransferase 17 U/L (0-41); Albumin Level 3.1 g/dL (3.5-5.2); Alkaline Phosphatase 113 U/L (40-130); Anion Gap 23.3 (5-19); Aspartate Amino Transferase 15 U/L (0-40); Calcium 8.4 mg/dL (8.5-10.5); Carbon Dioxide 25 mmol/L (22-29); Chloride 89 mmol/L (98-107); Globulin 4.1 g/dL (1.3-4.6); Glucose 252 mg/dL (65-115); Osmolality Calculated 317 mOsm/kg (285-295); Potassium 4.3 mmol/L (3.5-5.1); Sodium 133 mmol/L (136-145); Total Bilirubin 1.7 mg/dL (0.15-1.2); Total Protein 7.2 g/dL (6.6-8.7)
[2022-12-18 09:25] LABS: Blood Urea Nitrogen 103 mg/dL (6-20)
--- NOTE | 2022-12-18 09:40 | ECG_ITS ---
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 Measurements Intervals [place] Rate: 72 P: 58 MD: 172 QRS: 59 QRSD: 101 T: 56 QT: 423 QTc: 465 Interpretive Statements SINUS RHYTHM INCOMPLETE RIGHT BUNDLE BRANCH BLOCK [90+ ms QRS DURATION, TERMINAL R IN V1/V2, 40+ ms S IN I/aVL/V4/V5/V6] Compared to ECG 06/12/2021 22:25:20 No significant changes Electronically Signed On 12-18-2022 21:11:41 CDT by Qi Dyson M.D. [id number]
[2022-12-18 09:46] LABS: Lipase 68 U/L (13-60)
[2022-12-18] MEDS: perflutren protein-a microsphr 0.22 mg/mL SDV 3 mL IV (09:50)
[2022-12-18] MEDS: metoprolol tartrate 50 mg Tablet 150 MG PO (09:51)
[2022-12-18] MEDS: hyDRALAzine 50 mg Tablet PO ×3 (09:51→20:28)
[2022-12-18] MEDS: heparin 5,000 unit/mL INJ 1 mL 5000 UNIT SUBCUT (09:51)
[2022-12-18] MEDS: insulin glargine 100 units/1 mL 80 UNIT SUBCUT (09:51)
[2022-12-18 09:53] LABS: Glucose Point of Care 267 mg/dL (70-110)
[2022-12-18] MEDS: cefepime 1,000 MG in sodium chloride 0.9% (plus) 50 ML 100 MG IV (10:24)
[2022-12-18] MEDS: linezolid premix 600 MG/300 ML PREMIX 300 MG IV ×2 (10:24→21:09)
--- NOTE | 2022-12-18 10:38 | PM.CONSULT ---
Providers/Reason For Consult Consulting Physician/Specialty*: nEPHROLOGY /kOMMANA Reason for Consult*: ESRD Attending Physician: Scot Zuñiga MD Primary Care Provider: John Hernandez DO History of Present Illness History of Present Illness Say Wagner is a 57 year old male Patient is a 57-year-old male with past medical history of end-stage renal disease on peritoneal dialysis for about a year, diabetes, hypertension, dyslipidemia, left foot wound, presented to the emergency department after he suffered a fall at home. Patient also complains of feeling ill for the last couple of days with fever and vomiting, nausea and abdominal pain. He reports he has intermittent abdominal fullness and tenderness since he started peritoneal dialysis. In the ED his vital signs are stable, he was afebrile lab data was significant for white count of 28.7 sodium 133 BUN 103 and creatinine 5.0. He has elevated CRP. Peritoneal fluid was drained and cell count was 82 predominantly mononuclear cells. Influenza and COVID was negative. Peritoneal fluid cultures were sent and pending at this time. Abdominal CT showed a hyperdense fluid in the left pelvis concerning for blood products. PD catheter coiled in the pelvis also has ascites and splenomegaly. . Review of Systems Narrative: Negative Medications/Allergies Home Medications Medication Instructions Recorded Confirmed Last Taken Type cholecalciferol (vitamin D3) 125 125 mcg PO DAILY@11/19/20 12/18/22 09/22/21 History mcg (5,000 unit) capsule bictegravir 50 mg-emtricitabine 1 tab PO BEDTIME 07/15/21 12/18/22 09/22/21 History 200 mg-tenofovir alafenam 25 mg tablet (Biktarvy) hydralazine 50 mg tablet 50 mg PO QID 07/15/21 12/18/22 09/22/21 History loratadine 10 mg tablet 10 mg PO DAILY PRN Allergy Symptoms 03/07/22 12/18/22 Unknown History minoxidil 10 mg tablet 5 mg PO DAILY@03/07/22 12/18/22 Unknown History allopurinol 300 mg tablet 300 mg PO DAILY@04/23/22 12/18/22 Unknown History clonidine HCl 0.1 mg tablet 0.1 mg PO TID@05,12,18 04/23/22 12/18/22 Unknown History metolazone 5 mg tablet 5 mg PO DAILY@06 04/23/22 12/18/22 Unknown History metoprolol tartrate 100 mg tablet 150 mg PO BID 04/23/22 12/18/22 Unknown History sorbitol 70 % solution 30 ml PO BID PRN constipation 04/23/22 12/18/22 Unknown History torsemide 100 mg tablet 100 mg PO DAILY@0630 04/23/22 12/18/22 Unknown History triamcinolone acetonide 0.1 % 1 applic topical DAILY PRN rash 04/23/22 12/18/22 Unknown History topical cream tamsulosin 0.4 mg capsule 0.8 mg PO QPM #180 caps 06/20/22 12/18/22 Unknown Rx pen needle, diabetic 32 gauge x #100 ea 06/26/22 12/18/22 Unknown Rx (BD Maylin 2nd Gen Pen Needle) insulin detemir U-100 100 unit/mL See Rx Instructions .Route 12/02/22 12/18/22 Unknown Rx (3 mL) subcutaneous pen (Levemir .COMPLEX SEE PHARMACY COMMENTS #75 FlexTouch U-100 Insulin) mL calcium acetate(phosphat bind) 667 667 mg PO TIDWM 12/18/22 12/18/22 Unknown History mg capsule docusate sodium 100 mg capsule 100 mg PO BID PRN Constipation 12/18/22 12/18/22 Unknown History gentamicin 0.1 % topical cream See Rx Instructions .Route .COMPLEX 12/18/22 12/18/22 Unknown History heparin (porcine) 1,000 unit/mL See Rx Instructions .Route .COMPLEX 12/18/22 12/18/22 Unknown History injection solution potassium chloride 20 mEq 20 meq PO BID 12/18/22 12/18/22 Unknown History tablet,extended release vit B,C-folic ac 800 mcg-zinc 12.5 1 tab PO DAILY@12/18/22 12/18/22 Unknown History mg-selen-D3 2,000 unit-vit E tablet (RenaPlex-D) Allergies Allergy/AdvReac Type Severity Reaction Status Date / Time pioglitazone [From Actos] AdvReac Severe Unknown Verified 12/18/22 07:39 Current Medications Generic Name Dose Route Start Last Admin Trade Name Freq PRN Reason Stop Dose Admin Heparin Sodium (Porcine) 5,000 unit 12/18/22 08:30 12/18/22 09:51 Heparin 5,000 Unit/Ml Inj 1 Ml SUBCUT 5,000 unit Q12H JELLY Administration Hydralazine HCl 50 mg 12/18/22 09:00 12/18/22 09:51 Hydralazine 50 Mg Tablet PO 50 mg QID JELLY Administration Cefepime HCl 1,000 mg/ Sodium 50 mls @ 100 mls/hr 12/18/22 08:30 12/18/22 10:24 Chloride IV 100 mls/hr Q48H JELLY Administration Protocol Linezolid 600 mg in 300 mls @ 300 mls/hr 12/18/22 09:15 12/18/22 10:24 Zyvox Premix IV 300 mls/hr Q12H JELLY Administration Protocol Insulin Glargine 80 unit 12/18/22 09:00 12/18/22 09:51 Insulin Glargine 100 Units/1 Ml SUBCUT 80 unit BID JELLY Administration Metoprolol Tartrate 150 mg 12/18/22 09:00 12/18/22 09:51 Metoprolol Tartrate 50 Mg Tablet PO 150 mg BID JELLY Administration PFSH Acute PFSH: Medical History (Updated 12/18/22 @ 10:46 by Mily Bowers MD) BPH (benign prostatic hyperplasia) Chronic ulcer of left foot with fat layer exposed CKD (chronic kidney disease) (Unknown) per patient attributed to vancomycin toxicity, no kidney biopsy Congestive cardiac failure (Unknown) Diabetes Diabetic peripheral neuropathy associated with type 2 diabetes mellitus HIV disease Hypertension Mixed hyperlipidemia Surgical History H/O foot surgery History of colonoscopy 2011 Peritoneal dialysis catheter in situ (09/23/21) S/P ureteral stent placement Family History Father Hypertension Mother Hypertension Brother Cancer NON HODGKINS Other CAD (coronary artery disease) Diabetes Social History Smoking and tobacco status: never smoked Alcohol intake: never Marital status: Current occupational status: employed Vitals/I&O/Wt Last Vital Signs Temp 98.2 F 12/18/22 08:21 Pulse 78 12/18/22 10:02 Resp 14 12/18/22 08:21 BP 149/78 12/18/22 08:21 Pulse Ox 98 12/18/22 10:02 O2 Del Method Nasal Cannula 12/18/22 10:02 O2 Flow Rate 2 12/18/22 10:02 12/17/22 12/18/22 12/18/22 22:59 06:59 14:59 Intake Total 500 / 500 Balance 500 / 500 Weight last 48 hrs Weight 181.437 kg Physical Exam Narrative: Patient awake alert, no distress PEERLA S1-S2 regular rate and rhythm per report Clear to auscultation per report Diffuse mild abdominal tenderness per report 2+ pedal edema Data 12/18/22 08:04 12/18/22 08:04 Micro: Microbiology 12/18/22 06:01 Blood Culture - Preliminary Blood SPECIMEN COLLECTED 12/18/22 05:58 Blood Culture - Preliminary Blood SPECIMEN COLLECTED A&P Assessment and plan (1) ESRD (end stage renal disease): Plan 1. End-stage renal disease: On peritoneal dialysis, concern for possible peritonitis given abdominal tenderness. But peritoneal effluent had been clear so far. -We will add antibiotics cefazolin plus cefepime to his next PD bag and dwell for 6 hours. Await PD fluid cultures. 2. Leukocytosis: With left shift, unclear source of infection, possibilities include possible pneumonia/peritonitis/other abdominal pathology. On systemic antibiotics as well as antibiotics with PD fluid. We will add Diflucan Follow blood cultures and PD fluid cultures 3. Hyponatremia: Mild, monitor Patient evaluated using audiovisual cart. Time spent 45 minutes Consult Attestations Medical Necessity Statement: PER MEDICINE TEAM Coding Level of Care Code Acute Code for Chg Fwd Diagnoses ESRD (end stage renal disease) N18.6
[2022-12-18] MEDS: iohexol 350 mg/mL 500 mL Btl (per mL) PO (11:50)
[2022-12-18 12:06] LABS: Glucose Point of Care 289 mg/dL (70-110)
[2022-12-18 12:16] LABS: Hemoglobin 11.8 g/dL (11.7-16.6)
[2022-12-18] MEDS: b-complex-vitamin c Tablet 1 EACH PO (12:52)
[2022-12-18] MEDS: cloNIDine 0.1 mg Tablet PO (12:52)
[2022-12-18] MEDS: calcium acetate 667 mg Capsule PO (12:52)
[2022-12-18] MEDS: nystatin cream 30 gm 1 APPLIC TOPICAL ×2 (12:53→17:23)
[2022-12-18] MEDS: insulin lispro 100 unit/1 mL SUBCUT ×3 (12:56→22:15)
--- NOTE | 2022-12-18 15:14 | CTR_ITS ---
PROCEDURE INFORMATION: Exam: CT Abdomen And Pelvis With Contrast Exam date and time: 12/18/2022 4:15 PM Age: 57 years old Clinical indication: Abdominal pain; Generalized; Prior surgery; Surgery date: 6+ months; Surgery type: Dialysis cath; Additional info: Vomiting, abdominal pain, abnormal noncontrast CT TECHNIQUE: Imaging protocol: Computed tomography of the abdomen and pelvis with contrast. Radiation optimization: All CT scans at this facility use at least one of these dose optimization techniques: automated exposure control; mA and/or kV adjustment per patient size (includes targeted exams where dose is matched to clinical indication); or iterative reconstruction. Contrast material: OMNI 350; Contrast volume: 100 ml; Contrast route: INTRAVENOUS (IV); REPORTING DATA: Count of CT and Cardiac NM exams in prior 12 months: This patient has received 2 known CTs and 0 known cardiac nuclear medicine studies in the 12 months prior to the current study. COMPARISON: CT abdomen pelvis wo con [id number] 12/17/2022 11:48 PM RADIATION DOSE METRICS: Total DLP (mGy-cm): 2127.43 FINDINGS: Tubes, catheters and devices: Small amount of free air in the upper abdomen, may be secondary to the presence of a dialysis catheter, however, other considerations include a perforated viscus among other etiologies, however, no source of potential perforation is seen. Liver: Possible cirrhotic liver. Hepatic steatosis. Gallbladder and bile ducts: Normal. No calcified stones. No ductal dilation. Pancreas: Normal. No ductal dilation. Spleen: Normal. No splenomegaly. Adrenal glands: Left adrenal 26 mm partially calcified likely benign nodule. Kidneys and ureters: Normal. No hydronephrosis. Stomach and bowel: Layering hyperdense material in the stomach, somewhat concerning for contrast extravasation from gastrointestinal bleeding, please correlate clinically as no definite active contrast extravasation is seen. Appendix: No evidence of appendicitis. Intraperitoneal space: Small to moderate ascites in the abdomen pelvis. Vasculature: Unremarkable. No abdominal aortic aneurysm. Lymph nodes: Unremarkable. No enlarged lymph nodes. Urinary bladder: Unremarkable as visualized. Reproductive: Unremarkable as visualized. Bones/joints: Unremarkable. No acute fracture. Soft tissues: Subcutaneous edema about the abdomen and pelvis left greater than right. CT/CT abdomen pelvis w con* [id number] IMPRESSION: 1. Small amount of free air in the upper abdomen, may be secondary to the presence of a dialysis catheter, however, other considerations include a perforated viscus among other etiologies, however, no source of potential perforation is seen. 2. Layering hyperdense material in the stomach, somewhat concerning for contrast extravasation from gastrointestinal bleeding, please correlate clinically as no definite active contrast extravasation is seen. 3. Left adrenal 26 mm partially calcified likely benign nodule. 4. Possible cirrhotic liver. 5. Subcutaneous edema about the abdomen and pelvis left greater than right. 6. Hepatic steatosis. 7. Small to moderate ascites in the abdomen pelvis.
[2022-12-18] MEDS: pantoprazole 40 mg SDV IVP (15:40)
--- NOTE | 2022-12-18 15:42 | ECG_ITS ---
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 Measurements Intervals [place] Rate: 79 P: 44 MD: 165 QRS: 57 QRSD: 104 T: 47 QT: 406 QTc: 468 Interpretive Statements SINUS RHYTHM INCOMPLETE RIGHT BUNDLE BRANCH BLOCK [90+ ms QRS DURATION, TERMINAL R IN V1/V2, 40+ ms S IN I/aVL/V4/V5/V6] ANTEROSEPTAL MYOCARDIAL INFARCTION , OF INDETERMINATE AGE [40+ ms Q WAVE IN V1-V4] Compared to ECG 12/18/2022 09:40:23 Myocardial infarct finding now present Electronically Signed On 12-18-2022 21:09:28 CDT by Qi yDson M.D. [id number]
[2022-12-18] MEDS: piperacillin-tazobactam 3.375 GM in sodium chloride 0.9% (plus) 50 ML IV (15:43)
[2022-12-18] MEDS: hyDRALAzine 20 mg/mL INJ 1 mL 10 MG IVP (15:55)
[2022-12-18 16:51] LABS: Glucose Point of Care 314 mg/dL (70-110)
--- NOTE | 2022-12-18 18:03 | PM.CONSULT ---
Providers/Reason For Consult Consulting Physician/Specialty*: Dr. Gato Bledsoe, /General surgery Reason for Consult*: Intraperitoneal free air Attending Physician: Scot Zuñiga MD Primary Care Provider: John Hernandez DO History of Present Illness History of Present Illness Say Wagner is a 57 year old male, who is chronically on peritoneal dialysis, presented to the hospital after a fall in which she hit the right side of his head and his right upper abdomen. He reports that his abdomen does not hurt anymore than it normally does. He does have some nausea and emesis. He vomited contrast for a contrasted CT of the abdomen and pelvis. He has a white count of 28. CT also shows some free intraperitoneal air near the stomach. No obvious area of perforation is noted however. There is no obvious cause of his leukocytosis. WBCs in an intraperitoneal fluid analysis were less than 100. Review of Systems General: Reports: 10 or more systems reviewed and unremarkable except in HPI and below Medications/Allergies Home Medications Medication Instructions Recorded Confirmed Last Taken Type cholecalciferol (vitamin D3) 125 125 mcg PO DAILY@11/19/20 12/18/22 09/22/21 History mcg (5,000 unit) capsule bictegravir 50 mg-emtricitabine 1 tab PO BEDTIME 07/15/21 12/18/22 09/22/21 History 200 mg-tenofovir alafenam 25 mg tablet (Biktarvy) hydralazine 50 mg tablet 50 mg PO QID 07/15/21 12/18/22 09/22/21 History loratadine 10 mg tablet 10 mg PO DAILY PRN Allergy Symptoms 03/07/22 12/18/22 Unknown History minoxidil 10 mg tablet 5 mg PO DAILY@03/07/22 12/18/22 Unknown History allopurinol 300 mg tablet 300 mg PO DAILY@04/23/22 12/18/22 Unknown History clonidine HCl 0.1 mg tablet 0.1 mg PO TID@05,12,18 04/23/22 12/18/22 Unknown History metolazone 5 mg tablet 5 mg PO DAILY@04/23/22 12/18/22 Unknown History metoprolol tartrate 100 mg tablet 150 mg PO BID 04/23/22 12/18/22 Unknown History sorbitol 70 % solution 30 ml PO BID PRN constipation 04/23/22 12/18/22 Unknown History torsemide 100 mg tablet 100 mg PO DAILY@0630 04/23/22 12/18/22 Unknown History triamcinolone acetonide 0.1 % 1 applic topical DAILY PRN rash 04/23/22 12/18/22 Unknown History topical cream tamsulosin 0.4 mg capsule 0.8 mg PO QPM #180 caps 06/20/22 12/18/22 Unknown Rx pen needle, diabetic 32 gauge x #100 ea 06/26/22 12/18/22 Unknown Rx (BD Maylin 2nd Gen Pen Needle) insulin detemir U-100 100 unit/mL See Rx Instructions .Route 12/02/22 12/18/22 Unknown Rx (3 mL) subcutaneous pen (Levemir .COMPLEX SEE PHARMACY COMMENTS #75 FlexTouch U-100 Insulin) mL calcium acetate(phosphat bind) 667 667 mg PO TIDWM 12/18/22 12/18/22 Unknown History mg capsule docusate sodium 100 mg capsule 100 mg PO BID PRN Constipation 12/18/22 12/18/22 Unknown History gentamicin 0.1 % topical cream See Rx Instructions .Route .COMPLEX 12/18/22 12/18/22 Unknown History heparin (porcine) 1,000 unit/mL See Rx Instructions .Route .COMPLEX 12/18/22 12/18/22 Unknown History injection solution potassium chloride 20 mEq 20 meq PO BID 12/18/22 12/18/22 Unknown History tablet,extended release vit B,C-folic ac 800 mcg-zinc 12.5 1 tab PO DAILY@06 12/18/22 12/18/22 Unknown History mg-selen-D3 2,000 unit-vit E tablet (RenaPlex-D) Allergies Allergy/AdvReac Type Severity Reaction Status Date / Time pioglitazone [From Actos] AdvReac Severe Unknown Verified 12/18/22 07:39 Current Medications Generic Name Dose Route Start Last Admin Trade Name Freq PRN Reason Stop Dose Admin Calcium Acetate 667 mg 12/18/22 12:00 12/18/22 17:16 Calcium Acetate 667 Mg Capsule PO Not Given TIDWM JELLY Clonidine HCl 0.1 mg 12/18/22 12:00 12/18/22 17:16 Clonidine 0.1 Mg Tablet PO Not Given TID@05,12,18 JELLY Hydralazine HCl 50 mg 12/18/22 09:00 12/18/22 16:39 Hydralazine 50 Mg Tablet PO Not Given QID REPLACED BY [facility] Linezolid 600 mg in 300 mls @ 300 mls/hr 12/18/22 09:15 12/18/22 11:34 Zyvox Premix IV Infused Q12H REPLACED BY [facility] Infusion Protocol Piperacillin Sod/Tazobactam 50 mls @ 12.5 mls/hr 12/18/22 16:00 12/18/22 15:43 Sod 3.375 gm/ Sodium Chloride IV 12.5 mls/hr Q12H REPLACED BY [facility] Administration Protocol As Directed Insulin Human Lispro 0 unit 12/18/22 12:00 12/18/22 17:18 Insulin Lispro 100 Unit/1 Ml SUBCUT 10 unit WM&BEDTIME REPLACED BY [facility] Administration Protocol Metoprolol Tartrate 150 mg 12/18/22 09:00 12/18/22 17:16 Metoprolol Tartrate 50 Mg Tablet PO Not Given BID REPLACED BY [facility] Multivitamins 1 each 12/18/22 13:00 12/18/22 12:52 I-[id number] C Tablet PO 1 each DAILY@06 JELLY Administration Nystatin 1 applic 12/18/22 09:00 12/18/22 17:23 Nystatin Cream 30 Gm TOPICAL 1 applic BID REPLACED BY [facility] Administration Ondansetron HCl 4 mg 12/18/22 08:21 12/18/22 14:20 Ondansetron 2 Mg/Ml Sdv 2 Ml IVP 4 mg Q6H PRN Administration vomiting, or N/V if npo Pantoprazole Sodium 40 mg 12/18/22 16:00 12/18/22 15:40 Pantoprazole 40 Mg Sdv IVP 40 mg Q12H JELLY Administration Tamsulosin HCl 0.8 mg 12/18/22 18:00 12/18/22 17:17 Tamsulosin 0.4 Mg Capsule PO Not Given QPM JELLY PFSH Acute PFSH: Medical History BPH (benign prostatic hyperplasia) Chronic ulcer of left foot with fat layer exposed CKD (chronic kidney disease) (Unknown) per patient attributed to vancomycin toxicity, no kidney biopsy Congestive cardiac failure (Unknown) Diabetes Diabetic peripheral neuropathy associated with type 2 diabetes mellitus HIV disease Hypertension Mixed hyperlipidemia Surgical History H/O foot surgery History of colonoscopy 2010 Peritoneal dialysis catheter in situ (09/23/21) S/P ureteral stent placement Family History Father Hypertension Mother Hypertension Brother Cancer NON HODGKINS Other CAD (coronary artery disease) Diabetes Social History Smoking and tobacco status: never smoked Alcohol intake: never Marital status: Current occupational status: employed Vitals/I&O/Wt Last Vital Signs Temp 98.9 F 12/18/22 15:44 Pulse 82 12/18/22 15:44 Resp 15 12/18/22 15:44 BP 166/82 12/18/22 17:16 Pulse Ox 96 12/18/22 15:44 O2 Del Method Nasal Cannula 12/18/22 10:02 O2 Flow Rate 2 12/18/22 10:02 12/18/22 12/18/22 12/18/22 06:59 14:59 22:59 Intake Total 500 / 500 350 / 350 Output Total 1500 / 1500 Balance 500 / 500 350 / 350 -1500 / -1150 Weight last 48 hrs Weight 400 lb Physical Exam Narrative: General : Patient is well developed , no acute distress, oriented x3, anasarca Head : Normal cephalic, a-traumatic. Ears : Pinnae and external canal are normal. Hearing is normal. Eyes : PERRLA, Sclera and injection are normal. No conjunctival discharge. Nose : Mucous membranes are without erythema. Throat : buccal mucosa is normal, gums are without significant recession or hypertrophy. Lungs : Equal chest rise bilaterally, no use of accessory muscles, trachea is midline. Cor : Rate and rhythm are normal. Abdomen : Soft, ND, mild diffuse tenderness palpation, no g/r/m Extremities : Anasarca, no cyanosis or clubbing, dorsalis pedis pulses are present bilaterally, non-tender to palpation of calves. Upper extremities are normal bilaterally. Back : non-tender to palpation, no CVA tenderness. Neuro : CN II - XII intact, Upper and lower extremities have equal and full strength Data 12/18/22 12:00 12/18/22 08:04 Micro: Microbiology 12/18/22 06:01 Blood Culture - Preliminary Blood SPECIMEN COLLECTED 12/18/22 05:58 Blood Culture - Preliminary Blood SPECIMEN COLLECTED A&P Assessment and plan (1) Leukocytosis: (2) Nausea and vomiting: Plan Agree with n.p.o. and NG tube to low intermittent wall suction Do not see any evidence of visceral perforation on physical exam or CT. Free intraperitoneal air may be secondary to his peritoneal dialysis catheter. I will follow closely for any changes in his abdominal exam Medical management per hospitalist No acute surgical intervention Coding Level of Care Code Acute Code for Chg Fwd Diagnoses Leukocytosis D72.829 Nausea and vomiting R11.2
--- NOTE | 2022-12-18 18:28 | PC.NURSE ---
Patient arrived to unit early this AM, c/o discomfort to the abdomen more to LLQ than right. Patient had indwelling fluid in place from ED. Drained PD and instilled treatment per NOV. Patient unable to tolerate turns or PO meds at this time. Physician is aware. Placed NGT and on LIS with black to cloudy drainage removed immediately as well as vomiting before and after placement. Patient has had copious amounts of emesis throughout shift and has stated that some relief after NGT placement. at bedside, no needs at this time, BP elevated, room clean and clutter free with call light within reach.
[2022-12-18] MEDS: NON-FORMULARY MEDICATION (Bictegrav-Emtricit-Tenofov Ala [Biktarvy] 50-200-25 mg tablet) 1 EACH PO (20:26)
--- NOTE | 2022-12-18 20:40 | PC.NURSE ---
call placed to [facility] due to no orders in place for Peroteneal dialysis schedule, frequency, and solution type. message left awaiting call back
[2022-12-18 21:51] LABS: Glucose Point of Care 282 mg/dL (70-110)
[2022-12-18] MEDS: Dianeal low Ca w/2.5% dex 2,000 mL Bag 2000 ML INTRAPERIT (22:44)
[2022-12-19] VITALS (15 sets, daily range): BP systolic 184–206; BP diastolic 65–92; PULSE 67–104; RESP 14–17; TEMP 36.6–37.1; O2SAT 93–96
[2022-12-19] MEDS: hyDRALAzine 20 mg/mL INJ 1 mL 10 MG IVP ×3 (01:52→11:51)
[2022-12-19] MEDS: piperacillin-tazobactam 3.375 GM in sodium chloride 0.9% (plus) 50 ML IV ×2 (04:12→17:13)
[2022-12-19] MEDS: ondansetron 2 mg/ML SDV 2 mL 4 MG IVP (04:39)
[2022-12-19] MEDS: pantoprazole 40 mg SDV IVP ×2 (04:39→17:13)
[2022-12-19 05:16] LABS: Basophils % 0.1 %; Hematocrit 39.1 % (42.0-52.0); Hemoglobin 12.6 g/dL (11.7-16.6); Lymphocytes # 1.1 10^3/uL (0.8-4.8); Lymphocytes % 4.3 %; Mean Corpuscular HGB Conc 32.2 g/dL (30.0-36.0); Mean Corpuscular Hemoglobin 27.9 pg (28.0-34.0); Mean Corpuscular Volume 86.7 fl (80-94); Mean Platelet Volume 10.5 fL (7.4-10.4); Monocytes # 0.6 10^3/uL (0.2-0.9); Monocytes % 2.2 %; Neutrophils # 24.71 10^3/uL (1.8-7.7); Neutrophils % 92.3 %; Nucleated Red Blood Cells % 0 %; Platelet Count 255 10^3/cmm (130-400); Red Blood Count 4.51 10^6/uL (4.1-5.3); Red Cell Distribution Width 17.7 % (12.1-15.1); White Blood Count 26.8 10^3/uL (4.0-10.0)
[2022-12-19] MEDS: Dianeal low Ca w/2.5% dex 2,000 mL Bag 2000 ML INTRAPERIT (05:31)
[2022-12-19] MEDS: metOLazone 5 MG Tablet PO (05:40)
[2022-12-19] MEDS: cloNIDine 0.1 mg Tablet PO ×3 (05:40→17:14)
[2022-12-19 05:46] LABS: Slide Review Slide Review Perform
[2022-12-19] MEDS: b-complex-vitamin c Tablet 1 EACH PO (06:54)
[2022-12-19] MEDS: minoxidil 10 mg Tablet 5 MG PO (06:54)
[2022-12-19] MEDS: TORSEmide 20 mg Tablet 100 MG PO (06:54)
[2022-12-19] MEDS: cholecalciferol (vitamin D3) 5,000 unit Tablet 5000 UNIT PO (06:54)
[2022-12-19] MEDS: allopurinol 300 mg Tablet PO (06:54)
[2022-12-19 07:15] LABS: Glucose Point of Care 361 mg/dL (70-110)
--- NOTE | 2022-12-19 07:22 | XR_ITS ---
WS: [id number] EXAMINATION: XR abdomen 1V* [id number] REASON FOR EXAM: history of free air on CT COMPARISON: None available. ORDER DATE: 12/19/2022 7:39 AM FINDINGS: There is a nonspecific colonic gas pattern with scattered fecal content and gas. There is no sign of significant small bowel dilation. No pathologic abdominal calcification is seen. There is a periton eal dialysis catheter in the pelvic peritoneal space. XR/XR abdomen 1V* [id number] IMPRESSION: Nonspecific bowel pattern.
[2022-12-19 07:31] LABS: Alanine Aminotransferase 15 U/L (0-41); Albumin Level 3.3 g/dL (3.5-5.2); Alkaline Phosphatase 119 U/L (40-130); Anion Gap 21.5 (5-19); Aspartate Amino Transferase 20 U/L (0-40); Calcium 8.4 mg/dL (8.5-10.5); Carbon Dioxide 30 mmol/L (22-29); Chloride 91 mmol/L (98-107); Globulin 4.2 g/dL (1.3-4.6); Glomerular Filtration Rate 14.3 mL/min (90-130); Glucose 343 mg/dL (65-115); Magnesium 2.4 mg/dL (1.7-2.3); Osmolality Calculated 331 mOsm/kg (285-295); Potassium 3.5 mmol/L (3.5-5.1); Sodium 139 mmol/L (136-145); Total Bilirubin 0.9 mg/dL (0.15-1.2); Total Protein 7.5 g/dL (6.6-8.7)
[2022-12-19 07:48] LABS: Blood Urea Nitrogen 94 mg/dL (6-20)
--- NOTE | 2022-12-19 08:07 | P.PN_ITS ---
Subjective Subjective: Say feels about the same today. His abdominal discomfort might be a little bit better. NG was placed yesterday, and he has had quite a bit of output from this, 1700. He denies passing any gas or having any bowel movements last night. Vomiting stopped with placement of the NG. He denies any shortness of breath. He reports he coughs on occasion, it is hard to determine if this is from the NG. Medications: Reviewed: Yes Vitals/I&O/Wt Last Vital Signs Temp 97.9 F 12/19/22 05:54 Pulse 97 12/19/22 06:00 Resp 17 12/19/22 05:54 BP 193/92 12/19/22 05:40 Pulse Ox 96 12/19/22 05:54 O2 Del Method Nasal Cannula 12/19/22 05:54 O2 Flow Rate 3 12/19/22 05:54 12/18/22 12/19/22 12/19/22 22:59 06:59 14:59 Intake Total 2350 / 2700 200 / 2900 Output Total 3830 / 3830 1600 / 5430 Balance -1480 / -1130 -1400 / -2530 Weight last 48 hrs Weight 181.437 kg Physical Exam Narrative: General exam is a white male, looks uncomfortable with the NG, reporting no significant pain but stating he feels very weak. Nurses alerted me that they did not get all of the volume back in dialysate when they drained him this morni ng. They are going to visit with nephrology regarding this. Neck is supple no lymphadenopathy thyromegaly Cardiovascular regular rate and rhythm with frequent premature beats Lungs clear no wheezing or crackles. Diminished breath sounds are noted bilaterally Abdomen is soft. Slight generalized tenderness. Peritoneal dialysis catheter is noted. Positive bowel sounds. exam demonstrates some tinea bilaterally Extremities 2-3+ edema. Small scab right lawrence, left fifth toe. No cyanosis or clubbing. No obvious cellulitis Data 12/19/22 04:49 12/19/22 06:57 Micro: Microbiology 12/18/22 06:01 Blood Culture - Preliminary Blood NEGATIVE TO DATE 12/18/22 05:58 Blood Culture - Preliminary Blood NEGATIVE TO DATE 12/18/22 03:05 Gram Stain - Final Ascites Fluid A&P Assessment and plan (1) Leukocytosis: Patient with fever at home. He has some generalized abdominal tenderness. White blood cell count and peritoneal fluid is nearing 100, and although this is predominantly mononuclear must still consider peritonitis. Culture were obtained and pending. He is currently on linezolid and cefepime. This may also explain his fatigue, and some nausea and vomiting. Vancomycin was not used as patient attributes his current renal failure issues to its toxicity, and he still has some residual renal function and fair urine output. Gram stain of peritoneal fluid negative currently Lipase was checked and only slightly elevated, and it is unlikely he has acute pancreatitis Nephrology consultation appreciated Some abnormality with density of fluid in peritoneal space. No clinical increased tenderness on left side. Repeat CT with contrast demonstrated some improvement of this. Blood culture and urine culture were obtained and pending Secondary to some lower extremity ulcers, significant edema, history of fever transthoracic echo was checked. This is pending Pneumonia cannot be completely excluded on his chest x-ray, however no symptomatology regarding this is apparent. He is on 3 L of oxygen, antibiotics he is currently on would be sufficient for pneumonia, as well as aspiration with his vomiting Repeat CBC tomorrow. White blood cell count has decreased only slightly. Check MRSA PCR. CBC yesterday demonstrated some free air. This may be secondary to peritoneal dialysis catheter. He has no clinical evidence of GI bleeding. Secondary to recurrent vomiting, NG was placed yesterday. He has had a fair amount of output from this. Surgery is following as well. Repeat abdominal film this morning. (2) Lymphedema: Patient is with significant lymphedema to his lower extremities. Venous duplex negative for DVT Awaiting echocardiogram. One in April showed diastolic dysfunction but was otherwise unremarkable (3) CKD (chronic kidney disease): Nephrology consult appreciated He is on peritoneal dialysis BMP daily (4) Diabetes: As n.p.o. long-acting insulin was held initially. Restarted 20 units. Continue sliding scale. If he is able to take p.o. this will need to be increased drastically (5) HIV disease: We will go ahead and hold Biktarvy currently (6) Fall: This may be vasovagal as it happened with him urinating. Could be related to infection. Continue telemetry, await echocardiogram. Plan Hypertension, continue home medications. Have added hydralazine as needed as p.o. intake of medications has been spotty Tinea, groins. Nystatin cream twice daily Multiple other medical problems as delineated in his past medical history Full code Heparin for DVT prophylaxis PT consultation I have visited extensively with surgery yesterday prior to the consult regarding their opinion, and following their evaluation as well. Attestations Medical Necessity Statement*: Needs continued hospitalization for IV antibiotics related to systemic infection, possible peritonitis, possible pneumonia Diagnoses Leukocytosis D72.829 Lymphedema I89.0 CKD (chronic kidney disease) N18.9 Diabetes E11.9 HIV disease B20 Fall W19.XXXA
[2022-12-19] MEDS: metoprolol tartrate 50 mg Tablet 150 MG PO ×2 (09:29→17:14)
[2022-12-19] MEDS: calcium acetate 667 mg Capsule PO ×3 (09:29→17:14)
[2022-12-19] MEDS: hyDRALAzine 50 mg Tablet PO ×4 (09:29→21:09)
[2022-12-19] MEDS: heparin 5,000 unit/mL INJ 1 mL 5000 UNIT SUBCUT ×2 (09:29→21:09)
[2022-12-19] MEDS: insulin glargine 100 units/1 mL 20 UNIT SUBCUT ×2 (09:30→22:19)
[2022-12-19] MEDS: insulin lispro 100 unit/1 mL SUBCUT ×4 (09:30→22:19)
[2022-12-19] MEDS: linezolid premix 600 MG/300 ML PREMIX 300 MG IV ×2 (10:14→22:20)
[2022-12-19] MEDS: nystatin cream 30 gm 1 APPLIC TOPICAL ×2 (10:20→17:19)
[2022-12-19 11:36] LABS: Glucose Point of Care 410 mg/dL (70-110)
[2022-12-19 12:32] LABS: Glucose Point of Care 339 mg/dL (70-110)
--- NOTE | 2022-12-19 13:23 | PM.PN ---
Subjective Subjective: c/o nausea , NGT placed Medications: Reviewed: Yes Vitals/I&O/Wt Last Vital Signs Temp 98.1 F 12/19/22 12:06 Pulse 104 H 12/19/22 12:06 Resp 16 12/19/22 12:06 BP 184/65 12/19/22 12:49 Pulse Ox 93 12/19/22 12:06 O2 Del Method Nasal Cannula 12/19/22 12:06 O2 Flow Rate 3 12/19/22 08:45 12/18/22 12/19/22 12/19/22 22:59 06:59 14:59 Intake Total 2350 / 2700 200 / 2900 Output Total 3830 / 3830 1600 / 5430 1175 / 1175 Balance -1480 / -1130 -1400 / -2530 -1175 / -1175 Weight last 48 hrs Weight 181.437 kg Physical Exam Narrative: Patient awake alert, no distress PEERLA S1-S2 regular rate and rhythm per report Clear to auscultation per report Diffuse mild abdominal tenderness per report 2+ pedal edema Anasarca Data 12/19/22 04:49 12/19/22 06:57 Micro: Microbiology 12/18/22 06:01 Blood Culture - Preliminary Blood NEGATIVE TO DATE 12/18/22 05:58 Blood Culture - Preliminary Blood NEGATIVE TO DATE 12/18/22 03:05 Gram Stain - Final Ascites Fluid A&P Assessment and plan (1) ESRD (end stage renal disease): Plan 1. End-stage renal disease: On peritoneal dialysis, concern for possible peritonitis given abdominal tenderness. But peritoneal effluent had been clear so far.Gram stain negative and Culture pending -Getting antibiotics cefazolin plus cefepime intraperitoneal . Await PD fluid cultures. -Spoke to Patient's PD nurse at [facility],- pt has been having poor UF with PD and PD catheter may need to be repositioned. - pt has Anasarca and would benefit from switching temporarily to HD fr volume management and Uremia -Pt agrees to the plan and general surgery consulted for catheter placement 2. Leukocytosis: With left shift, unclear source of infection, possibilities include possible pneumonia/peritonitis/other abdominal pathology. On systemic antibiotics as well as antibiotics with PD fluid. We will add Diflucan Follow blood cultures and PD fluid cultures 3. Hyponatremia: Mild, monitor Patient evaluated using audiovisual cart. Time spent 45 minutes Attestations Medical Necessity Statement*: per medicine Coding Level of Care Code Acute Code for Chg Fwd Diagnoses ESRD (end stage renal disease) N18.6
[2022-12-19] MEDS: ceFAZolin 250 MG in SYRINGE 1 EACH 999 MG XX (14:30)
--- NOTE | 2022-12-19 14:39 | PC.NURSE ---
Dr. Bowers changed order to purple dialysis peritoneal bag of 7.5. Family brought bag from home. Pharmacy does not carry the purple. at start, the bag weighed 1800.
--- NOTE | 2022-12-19 15:59 | PM.PN ---
Subjective Subjective: Patient seen and examined. Denies any new abdominal pain. Vitals/I&O/Wt Last Vital Signs Temp 98.8 F 12/19/22 15:44 Pulse 73 12/19/22 15:44 Resp 15 12/19/22 15:44 BP 193/73 12/19/22 15:44 Pulse Ox 96 12/19/22 15:44 O2 Del Method Nasal Cannula 12/19/22 15:44 O2 Flow Rate 3 12/19/22 08:45 12/19/22 12/19/22 12/19/22 06:59 14:59 22:59 Intake Total 200 / 2900 Output Total 1600 / 5430 1175 / 1175 Balance -1400 / -2530 -1175 / -1175 Weight last 48 hrs Weight 400 lb Physical Exam Narrative: General: No acute distress, awake alert and oriented x3 Abdomen: Soft, nondistended, mild diffuse tenderness to palpation, no guarding rebound or masses Data 12/19/22 04:49 12/19/22 06:57 Micro: Microbiology 12/18/22 03:05 Gram Stain - Final Ascites Fluid Body Fluid Culture - Preliminary 12/18/22 06:01 Blood Culture - Preliminary Blood NEGATIVE TO DATE 12/18/22 05:58 Blood Culture - Preliminary Blood NEGATIVE TO DATE A&P Assessment and plan (1) Leukocytosis: (2) Nausea and vomiting: (3) ESRD (end stage renal disease): Plan Temporary hemodialysis catheter placement in the morning Medical management per hospitalist The risks and benefits of the procedure, including but not limited to, bleeding, infection, infection requiring Mediport removal antibiotic therapy and repeat surgery, damage to surrounding structures, scar, numbness, pain, pneumothorax requiring thoracostomy tube, were explained to the patient. He/She is understanding of the risks and wishes to proceed. Attestations Medical Necessity Statement*: Per primary Coding Level of Care Code Acute Code for Chg Fwd Diagnoses Leukocytosis D72.829 Nausea and vomiting R11.2 ESRD (end stage renal disease) N18.6
[2022-12-19 17:10] LABS: Glucose Point of Care 249 mg/dL (70-110)
[2022-12-19] MEDS: tamsulosin 0.4 mg Capsule 0.8 MG PO (17:14)
[2022-12-19 22:41] LABS: Glucose Point of Care 190 mg/dL (70-110)
[2022-12-20] VITALS (14 sets, daily range): BP systolic 169–196; BP diastolic 72–84; PULSE 56–81; RESP 14–22; TEMP 36.6–36.8; O2SAT 96–98
[2022-12-20] MEDS: hyDRALAzine 20 mg/mL INJ 1 mL 10 MG IVP ×2 (00:34→05:07)
[2022-12-20 03:37] LABS: Glucose Point of Care 206 mg/dL (70-110)
[2022-12-20] MEDS: piperacillin-tazobactam 3.375 GM in sodium chloride 0.9% (plus) 50 ML IV ×2 (03:38→16:08)
[2022-12-20] MEDS: ondansetron 2 mg/ML SDV 2 mL 4 MG IVP ×2 (03:45→21:25)
[2022-12-20] MEDS: pantoprazole 40 mg SDV IVP ×2 (03:45→16:07)
[2022-12-20 05:12] LABS: Basophils # 0.1 10^3/uL (0.0-0.1); Basophils % 0.2 %; Hematocrit 40.2 % (42.0-52.0); Hemoglobin 12.4 g/dL (11.7-16.6); Lymphocytes # 1.4 10^3/uL (0.8-4.8); Lymphocytes % 6.5 %; Mean Corpuscular HGB Conc 30.8 g/dL (30.0-36.0); Mean Corpuscular Hemoglobin 27.4 pg (28.0-34.0); Mean Corpuscular Volume 88.7 fl (80-94); Mean Platelet Volume 9.5 fL (7.4-10.4); Monocytes # 0.6 10^3/uL (0.2-0.9); Monocytes % 2.9 %; Neutrophils # 18.68 10^3/uL (1.8-7.7); Neutrophils % 89.6 %; Nucleated Red Blood Cells % 0 %; Platelet Count 255 10^3/cmm (130-400); Red Blood Count 4.53 10^6/uL (4.1-5.3); Red Cell Distribution Width 17.3 % (12.1-15.1); White Blood Count 20.9 10^3/uL (4.0-10.0)
[2022-12-20 05:16] LABS: Alanine Aminotransferase 11 U/L (0-41); Albumin Level 2.9 g/dL (3.5-5.2); Alkaline Phosphatase 97 U/L (40-130); Aspartate Amino Transferase 15 U/L (0-40); Calcium 8.4 mg/dL (8.5-10.5); Carbon Dioxide 31 mmol/L (22-29); Chloride 92 mmol/L (98-107); Globulin 4.1 g/dL (1.3-4.6); Glomerular Filtration Rate 14.3 mL/min (90-130); Glucose 201 mg/dL (65-115); Magnesium 2.4 mg/dL (1.7-2.3); Osmolality Calculated 317 mOsm/kg (285-295); Sodium 137 mmol/L (136-145); Total Bilirubin 0.8 mg/dL (0.15-1.2)
[2022-12-20 05:28] LABS: Blood Urea Nitrogen 88 mg/dL (6-20)
[2022-12-20] MEDS: allopurinol 300 mg Tablet PO (06:05)
[2022-12-20] MEDS: minoxidil 10 mg Tablet 5 MG PO (06:05)
[2022-12-20] MEDS: cloNIDine 0.1 mg Tablet PO ×3 (06:05→17:51)
[2022-12-20] MEDS: cholecalciferol (vitamin D3) 5,000 unit Tablet 5000 UNIT PO (06:06)
[2022-12-20] MEDS: b-complex-vitamin c Tablet 1 EACH PO (06:06)
[2022-12-20] MEDS: TORSEmide 20 mg Tablet 100 MG PO (06:06)
[2022-12-20 06:43] LABS: Glucose Point of Care 227 mg/dL (70-110)
[2022-12-20] MEDS: hyDRALAzine 50 mg Tablet PO ×4 (09:18→21:04)
[2022-12-20] MEDS: calcium acetate 667 mg Capsule PO ×3 (09:19→17:51)
[2022-12-20] MEDS: fluconazole 100 mg Tablet PO (09:19)
[2022-12-20] MEDS: metoprolol tartrate 50 mg Tablet 150 MG PO ×2 (09:19→17:45)
[2022-12-20] MEDS: insulin lispro 100 unit/1 mL SUBCUT ×4 (09:20→21:04)
[2022-12-20] MEDS: linezolid premix 600 MG/300 ML PREMIX 300 MG IV ×2 (09:25→21:05)
[2022-12-20] MEDS: nystatin cream 30 gm 1 APPLIC TOPICAL ×2 (09:31→17:53)
--- NOTE | 2022-12-20 11:21 | PM.PN ---
Subjective Subjective: still feels tired had 1500 uF with Icodextran fluid Medications: Reviewed: Yes Vitals/I&O/Wt Last Vital Signs Temp 98.2 F 12/20/22 08:00 Pulse 80 12/20/22 08:25 Resp 15 12/20/22 08:00 BP 192/78 12/20/22 08:00 Pulse Ox 96 12/20/22 08:25 O2 Del Method Nasal Cannula 12/20/22 08:25 O2 Flow Rate 3 12/20/22 08:25 12/19/22 12/20/22 12/20/22 22:59 06:59 14:59 Intake Total 355.0 / 405.0 2300 / 2705.0 Output Total 990 / 2165 4415 / 6580 500 / 500 Balance -635.0 / -1760.0 -2115 / -3875.0 -500 / -500 Physical Exam Narrative: Patient awake alert, no distress PEERLA S1-S2 regular rate and rhythm per report Clear to auscultation per report Diffuse mild abdominal tenderness per report 2+ pedal edema Anasarca Data 12/20/22 04:29 12/20/22 04:29 Micro: Microbiology 12/18/22 03:05 Gram Stain - Final Ascites Fluid Body Fluid Culture - Preliminary A&P Assessment and plan (1) ESRD (end stage renal disease): Plan 1. End-stage renal disease: On peritoneal dialysis, concern for possible peritonitis given abdominal tenderness. But peritoneal effluent had been clear so far.Gram stain negative and Culture pending -s/p cefazolin plus cefepime intraperitoneal . Negative PD fluid cultures. -Spoke to Patient's PD nurse at [facility],- pt has been having poor UF with PD and PD catheter may need to be repositioned. - pt has Anasarca and would benefit from switching temporarily to HD for volume management and Uremia -Pt agrees to the plan and general surgery consulted for catheter placement 2. Leukocytosis: With left shift, unclear source of infection, possibilities include possible pneumonia/peritonitis/other abdominal pathology. On systemic antibiotics as well as antibiotics with PD fluid. We will add Diflucan Follow blood cultures and PD fluid cultures 3. Hyponatremia: Mild, monitor Patient evaluated using audiovisual cart. Time spent 45 minutes Attestations Medical Necessity Statement*: per medicine Coding Level of Care Code Acute Code for Chg Fwd Diagnoses ESRD (end stage renal disease) N18.6
[2022-12-20 11:59] LABS: Glucose Point of Care 213 mg/dL (70-110)
--- NOTE | 2022-12-20 14:01 | PM.PN ---
Subjective Subjective: Patient seen and examined. Denies any new abdominal pain. Vitals/I&O/Wt Last Vital Signs Temp 98.1 F 12/20/22 12:00 Pulse 67 12/20/22 12:00 Resp 15 12/20/22 12:00 BP 181/78 12/20/22 12:38 Pulse Ox 96 12/20/22 12:00 O2 Del Method Nasal Cannula 12/20/22 08:25 O2 Flow Rate 3 12/20/22 08:25 12/19/22 12/20/22 12/20/22 22:59 06:59 14:59 Intake Total 355.0 / 405.0 2300 / 2705.0 Output Total 990 / 2165 4415 / 6580 500 / 500 Balance -635.0 / -1760.0 -2115 / -3875.0 -500 / -500 Physical Exam Narrative: General: No acute distress, awake alert and oriented x3 Abdomen: Soft, nondistended, mild diffuse tenderness to palpation, no guarding rebound or masses Data 12/20/22 04:29 12/20/22 04:29 Micro: Microbiology 12/18/22 00:35 Urine Culture - Preliminary Urine Catheterized 12/18/22 03:05 Gram Stain - Final Ascites Fluid Body Fluid Culture - Preliminary A&P Assessment and plan (1) Leukocytosis: (2) Nausea and vomiting: (3) ESRD (end stage renal disease): Plan Medical management per hospitalist I spoke with nephrology. Plan is to continue peritoneal dialysis today and I will place a permacath in the morning The risks and benefits of the procedure, including but not limited to, bleeding, infection, infection requiring Mediport removal antibiotic therapy and repeat surgery, damage to surrounding structures, scar, numbness, pain, pneumothorax requiring thoracostomy tube, were explained to the patient. He/She is understanding of the risks and wishes to proceed. Attestations Medical Necessity Statement*: Per primary Coding Level of Care Code Acute Code for Chg Fwd Diagnoses Leukocytosis D72.829 Nausea and vomiting R11.2 ESRD (end stage renal disease) N18.6
--- NOTE | 2022-12-20 15:44 | PC.NURSE ---
Started Peritoneal Dialysis at 1500. Bag weighed 1800. Nothing indwelling. Dr. Bowers stated to do this one Peritoneal Dialysis today since patient was not going to have surgery today. Will do Permanent Dialysis port tomorrow per Dr. Bledsoe. Will Hold Heparin tonight at midnight.
[2022-12-20 16:59] LABS: Glucose Point of Care 182 mg/dL (70-110)
[2022-12-20] MEDS: tamsulosin 0.4 mg Capsule 0.8 MG PO (17:46)
--- NOTE | 2022-12-20 20:34 | PM.PN ---
Subjective Subjective: This morning he is feeling nauseated after NG tube had to be paused so he could receive his medications. Did not vomit. No abdominal pain. No vertigo. Vitals/I&O/Wt Last Vital Signs Temp 97.9 F 12/20/22 16:00 Pulse 65 12/20/22 16:00 Resp 15 12/20/22 16:00 BP 186/72 12/20/22 17:51 Pulse Ox 98 12/20/22 16:00 O2 Del Method Nasal Cannula 12/20/22 08:25 O2 Flow Rate 3 12/20/22 08:25 12/20/22 12/20/22 12/20/22 06:59 14:59 22:59 Intake Total 2300 / 2705.0 50 / 50 300 / 350 Output Total 4415 / 6580 500 / 500 400 / 900 Balance -2115 / -3875.0 -450 / -450 -100 / -550 Data 12/20/22 04:29 12/20/22 04:29 Micro: Microbiology 12/18/22 03:05 Gram Stain - Final Ascites Fluid Body Fluid Culture - Preliminary 12/19/22 12:33 MRSA Culture - Final Nose 12/18/22 00:35 Urine Culture - Preliminary Urine Catheterized A&P Assessment and plan (1) Leukocytosis: Appears to be improving. Reviewing peritoneal fluid culture, no growth. Blood culture without growth. He is nauseated no abdominal pain. Most history obtained from his as he is not feeling well. Unclear etiology of leukocytosis. Continue empiric antibiotic coverage with Zosyn, linezolid, and intracatheter antibiotics. Nephrology also added Diflucan. Pending assessment for possible peritonitis. Some lower extremity ulcers, significant edema. Echo appreciated, normal EF, trace valvular abnormalities. With vomiting, possibility of aspiration. MRSA PCR noted negative. CT demonstrated some free air. This may be secondary to peritoneal dialysis catheter. He has no clinical evidence of GI bleeding. Secondary to recurrent vomiting, NG was placed yesterday. He has had a fair amount of output from this. Surgery is following as well. (2) Lymphedema: Patient is with significant lymphedema to his lower extremities. Venous duplex negative for DVT Unremarkable echocardiogram. One in April showed diastolic dysfunction but was otherwise unremarkable (3) CKD (chronic kidney disease): ESRD, arrangements for hemodialysis. PD tonight. Per discussion with surgery. Surgery documentation, nephrology documentation reviewed. Question of possibility of degree of uremia with nausea and vomiting. BMP daily (4) Diabetes: Lantus 20 units. Continue sliding scale. If he is able to take p.o. this will need to be increased drastically Currently n.p.o. (5) HIV disease: Biktarvy on hold (6) Fall: This may be vasovagal as it happened with him urinating. Could be related to infection. Continue telemetry, Echocardiogram unremarkable Plan Hypertension, continue home medications. Blood pressure still elevated. Add amlodipine. Tinea, groins. Nystatin cream twice daily Multiple other medical problems as delineated in his past medical history Full code Heparin for DVT prophylaxis PT consultation I have visited extensively with surgery yesterday prior to the consult regarding their opinion, and following their evaluation as well. Attestations Medical Necessity Statement*: Continue admission for assessment management of suspected infection, possible peritonitis, possible pneumonia. Arrangements for hemodialysis. Diagnoses Leukocytosis D72.829 Lymphedema I89.0 CKD (chronic kidney disease) N18.9 Diabetes E11.9 HIV disease B20 Fall W19.XXXA
[2022-12-20] MEDS: insulin glargine 100 units/1 mL 20 UNIT SUBCUT (21:04)
[2022-12-20] MEDS: heparin 5,000 unit/mL INJ 1 mL 5000 UNIT SUBCUT (21:08)
[2022-12-20 22:02] LABS: Glucose Point of Care 202 mg/dL (70-110)
[2022-12-21] VITALS (18 sets, daily range): BP systolic 114–221; BP diastolic 63–93; PULSE 58–79; RESP 15–19; TEMP 36.3–36.9; O2SAT 94–99
[2022-12-21] MEDS: pantoprazole 40 mg SDV IVP ×2 (03:30→19:43)
[2022-12-21] MEDS: piperacillin-tazobactam 3.375 GM in sodium chloride 0.9% (plus) 50 ML IV ×2 (03:36→20:56)
[2022-12-21] MEDS: TORSEmide 20 mg Tablet 100 MG PO (05:32)
[2022-12-21] MEDS: cloNIDine 0.1 mg Tablet PO ×2 (05:33→19:49)
[2022-12-21] MEDS: b-complex-vitamin c Tablet 1 EACH PO (05:34)
[2022-12-21] MEDS: cholecalciferol (vitamin D3) 5,000 unit Tablet 5000 UNIT PO (05:34)
[2022-12-21] MEDS: minoxidil 10 mg Tablet 5 MG PO (05:34)
[2022-12-21] MEDS: allopurinol 300 mg Tablet PO (05:36)
[2022-12-21 05:41] LABS: Basophils % 0.2 %; Eosinophils % 0.1 %; Hematocrit 40.1 % (42.0-52.0); Hemoglobin 12.3 g/dL (11.7-16.6); Lymphocytes # 1.7 10^3/uL (0.8-4.8); Lymphocytes % 12.4 %; Mean Corpuscular HGB Conc 30.7 g/dL (30.0-36.0); Mean Corpuscular Hemoglobin 27.1 pg (28.0-34.0); Mean Corpuscular Volume 88.3 fl (80-94); Mean Platelet Volume 9.5 fL (7.4-10.4); Monocytes # 0.5 10^3/uL (0.2-0.9); Monocytes % 3.9 %; Neutrophils # 11.21 10^3/uL (1.8-7.7); Neutrophils % 82.6 %; Nucleated Red Blood Cells % 0 %; Platelet Count 250 10^3/cmm (130-400); Red Blood Count 4.54 10^6/uL (4.1-5.3); Red Cell Distribution Width 17.1 % (12.1-15.1); White Blood Count 13.6 10^3/uL (4.0-10.0)
[2022-12-21] MEDS: ondansetron 2 mg/ML SDV 2 mL 4 MG IVP (05:46)
[2022-12-21 06:01] LABS: Alanine Aminotransferase 9 U/L (0-41); Albumin Level 3.1 g/dL (3.5-5.2); Alkaline Phosphatase 89 U/L (40-130); Anion Gap 16.2 (5-19); Aspartate Amino Transferase 15 U/L (0-40); Calcium 8.4 mg/dL (8.5-10.5); Carbon Dioxide 34 mmol/L (22-29); Chloride 93 mmol/L (98-107); Globulin 3.5 g/dL (1.3-4.6); Glomerular Filtration Rate 14.3 mL/min (90-130); Glucose 210 mg/dL (65-115); Osmolality Calculated 324 mOsm/kg (285-295); Potassium 3.2 mmol/L (3.5-5.1); Sodium 140 mmol/L (136-145); Total Protein 6.6 g/dL (6.6-8.7)
[2022-12-21 06:19] LABS: Blood Urea Nitrogen 91 mg/dL (6-20)
[2022-12-21 07:18] LABS: Glucose Point of Care 209 mg/dL (70-110)
[2022-12-21] MEDS: insulin lispro 100 unit/1 mL SUBCUT ×2 (09:28→20:59)
[2022-12-21] MEDS: hyDRALAzine 50 mg Tablet PO ×2 (09:29→20:57)
[2022-12-21] MEDS: amlodipine 5 mg Tablet PO (09:29)
[2022-12-21] MEDS: metoprolol tartrate 50 mg Tablet 150 MG PO ×2 (09:29→19:48)
[2022-12-21] MEDS: sodium chloride 0.9% 1,000 ML 100 ML IV (10:19)
--- NOTE | 2022-12-21 10:31 | P.ANESASSM_ITS ---
Pre-Anesthetic Assessment Height/Weight: Height 1.93 m Weight 181.437 kg Temp Pulse Resp BP Pulse Ox O2 Del Method O2 Flow Rate 98.0 F 79 18 221/93 99 Nasal Cannula 3 12/21/22 09:58 12/21/22 09:58 12/21/22 09:58 12/21/22 09:58 12/21/22 09:58 12/21/22 09:58 12/21/22 09:58 Operation Date: 12/21/22 10:10 Proposed Procedures p Dialysis Catheter Insertion(Not Applicable) - Gato Bledsoe DO Familial anesthetic complications: none Was Beta Yee taken within 24 hours: Yes Was Clonidine taken within 24 hours: Yes Social No alcohol and No tobacco Exam alert, oriented x 3, clear to auscultation bilaterally and regular rate & rhythm Airway Submandibular: within normal limits Cervical ROM: within normal limits Mallampati: Class II Dentition: full CV/HEM Acquired Immunodeficiency Syndrome (HIV) and Hypertension CONCLUSIONS ?LV systolic function is normal with EF 55 to 60% ?Trace mitral regurgitation ?Mild tricuspid regurgitation ?Trace pulmonic regurgitation ?Compared to prior echocardiogram from 04/2022, no significant ?changes are noted. ?Edgar Cottrell MD ?(Electronically Signed) ?Final Date:? ? ? 19 December 2022 Chronic Renal Failure PD cath Metabolic Diabetes Mellitus and Morbid Obesity Neuropsych Depression and Neuropathy Anesthetic Plan ASA status: 3 Anesthesia: Choice Medications/Allergies Home Medications Medication Instructions Recorded Confirmed Last Taken Type cholecalciferol (vitamin D3) 125 125 mcg PO DAILY@11/19/20 12/18/22 09/22/21 History mcg (5,000 unit) capsule bictegravir 50 mg-emtricitabine 1 tab PO BEDTIME 07/15/21 12/18/22 09/22/21 History 200 mg-tenofovir alafenam 25 mg tablet (Biktarvy) hydralazine 50 mg tablet 50 mg PO QID 07/15/21 12/18/22 09/22/21 History loratadine 10 mg tablet 10 mg PO DAILY PRN Allergy Symptoms 03/07/22 12/18/22 Unknown History minoxidil 10 mg tablet 5 mg PO DAILY@03/07/22 12/18/22 Unknown History allopurinol 300 mg tablet 300 mg PO DAILY@04/23/22 12/18/22 Unknown History clonidine HCl 0.1 mg tablet 0.1 mg PO TID@05,12,18 04/23/22 12/18/22 Unknown Hi story metolazone 5 mg tablet 5 mg PO DAILY@06 04/23/22 12/18/22 Unknown History metoprolol tartrate 100 mg tablet 150 mg PO BID 04/23/22 12/18/22 Unknown History sorbitol 70 % solution 30 ml PO BID PRN constipation 04/23/22 12/18/22 Unknown History torsemide 100 mg tablet 100 mg PO DAILY@0630 04/23/22 12/18/22 Unknown History triamcinolone acetonide 0.1 % 1 applic topical DAILY PRN rash 04/23/22 12/18/22 Unknown History topical cream tamsulosin 0.4 mg capsule 0.8 mg PO QPM #180 caps 06/20/22 12/18/22 Unknown Rx pen needle, diabetic 32 gauge x #100 ea 06/26/22 12/18/22 Unknown Rx (BD Maylin 2nd Gen Pen Needle) insulin detemir U-100 100 unit/mL See Rx Instructions .Route 12/02/22 12/18/22 Unknown Rx (3 mL) subcutaneous pen (Levemir .COMPLEX SEE PHARMACY COMMENTS #75 FlexTouch U-100 Insulin) mL calcium acetate(phosphat bind) 667 667 mg PO TIDWM 12/18/22 12/18/22 Unknown History mg capsule docusate sodium 100 mg capsule 100 mg PO BID PRN Constipation 12/18/22 12/18/22 Unknown History gentamicin 0.1 % topical cream See Rx Instructions .Route .COMPLEX 12/18/22 12/18/22 Unknown History heparin (porcine) 1,000 unit/mL See Rx Instructions .Route .COMPLEX 12/18/22 12/18/22 Unknown History injection solution potassium chloride 20 mEq 20 meq PO BID 12/18/22 12/18/22 Unknown History tablet,extended release vit B,C-folic ac 800 mcg-zinc 12.5 1 tab PO DAILY@06 12/18/22 12/18/22 Unknown History mg-selen-D3 2,000 unit-vit E tablet (RenaPlex-D) Allergies Allergy/AdvReac Type Severity Reaction Status Date / Time pioglitazone [From Actos] AdvReac Severe Unknown Verified 12/18/22 07:39 Current Medications Generic Name Dose Route Start Last Admin Trade Name Sukhjinderq PRN Reason Stop Dose Admin Allopurinol 300 mg 12/19/22 06:00 12/21/22 05:36 Allopurinol 300 Mg Tablet PO 300 mg DAILY@06 JELLY Administration Amlodipine Besylate 5 mg 12/21/22 09:00 12/21/22 09:29 Amlodipine 5 Mg Tablet PO 5 mg DAILY JELLY Administration Calcium Acetate 667 mg 12/18/22 12:00 12/21/22 09:22 Calcium Acetate 667 Mg Capsule PO Not Given TIDWM JELLY Clonidine HCl 0.1 mg 12/18/22 12:00 12/21/22 05:33 Clonidine 0.1 Mg Tablet PO 0.1 mg TID@05,,18 JELLY Administration Fluconazole 100 mg 12/20/22 09:00 12/21/22 09:22 Fluconazole 100 Mg Tablet PO Not Given DAILY JELLY Heparin Sodium (Porcine) 5,000 unit 12/19/22 09:00 12/20/22 21:08 Heparin 5,000 Unit/Ml Inj 1 Ml SUBCUT 5,000 unit Q12H JELLY Administration Hydralazine HCl 50 mg 12/18/22 09:00 12/21/22 09:29 Hydralazine 50 Mg Tablet PO 50 mg QID JELLY Administration Hydralazine HCl 10 mg 12/18/22 17:24 12/20/22 05:07 Hydralazine 20 Mg/Ml Inj 1 Ml IVP 10 mg Q4H PRN Administration HYPERTENSION Linezolid 600 mg in 300 mls @ 300 mls/hr 12/18/22 09:15 12/20/22 22:47 Zyvox Premix IV Infused Q12H [facility] Infusion Protocol Piperacillin Sod/Tazobactam 50 mls @ 12.5 mls/hr 12/18/22 16:00 12/21/22 08:31 Sod 3.375 gm/ Sodium Chloride IV Infused Q12H JELLY Infusion Protocol As Directed Cefazolin Sodium 250 mg/ N/A 2.5 mls @ 0 mls/hr 12/19/22 14:00 12/21/22 09:17 XX Not Given Q6H JELLY As Directed Cefepime HCl 250 mg/ N/A 2.5 mls @ 0 mls/hr 12/19/22 14:00 12/21/22 09:17 XX Not Given Q6H JELLY As Directed Sodium Chloride 1,000 mls @ 100 mls/hr 12/21/22 10:00 12/21/22 10:19 Sodium Chloride 0.9% IV 12/22/22 09:59 100 mls/hr .Q10H JELLY Administration Insulin Glargine 20 unit 12/19/22 08:30 12/20/22 21:04 Insulin Glargine 100 Units/1 Ml SUBCUT 20 unit BEDTIME JELLY Administration Insulin Human Lispro 0 unit 12/18/22 12:00 12/21/22 09:28 Insulin Lispro 100 Unit/1 Ml SUBCUT 4 unit WM&BEDTIME JELLY Administration Protocol Metoprolol Tartrate 150 mg 12/18/22 09:00 12/21/22 09:29 Metoprolol Tartrate 50 Mg Tablet PO 150 mg BID JELLY Administration Minoxidil 5 mg 12/19/22 06:00 12/21/22 05:34 Minoxidil 10 Mg Tablet PO 5 mg DAILY@06 [facility] Administration Multivitamins 1 each 12/18/22 13:00 12/21/22 05:34 X-Gpxcvfm-Ggjhmkm C Tablet PO 1 each DAILY@06 [facility] Administration Non-Formulary 1 each 12/19/22 14:00 12/21/22 09:22 Medication (Pd XX Not Given Icodextrin Pd-2 7.5% Q6H [facility] Icodextrin) Nystatin 1 applic 12/18/22 09:00 12/21/22 09:30 Nystatin Cream 30 Gm TOPICAL Not Given BID [facility] Ondansetron HCl 4 mg 12/18/22 08:21 12/21/22 05:46 Ondansetron 2 Mg/Ml Sdv 2 Ml IVP 4 mg Q6H PRN Administration vomiting, or N/V if npo Pantoprazole Sodium 40 mg 12/18/22 16:00 12/21/22 03:30 Pantoprazole 40 Mg Sdv IVP 40 mg Q12H JELLY Administration Tamsulosin HCl 0.8 mg 12/18/22 18:00 12/20/22 17:46 Tamsulosin 0.4 Mg Capsule PO 0.8 mg QPM JELLY Administration Torsemide 100 mg 12/19/22 06:30 12/21/22 05:32 Torsemide 20 Mg Tablet PO 100 mg DAILY@0630 [facility] Administration Vitamin D 5,000 unit 12/19/22 06:00 12/21/22 05:34 Cholecalciferol (Vitamin D3) 5,000 Unit Tablet PO 5,000 unit DAILY@06 [facility] Administration [facility] Anesthesia Medical History BPH (benign prostatic hyperplasia) Chronic ulcer of left foot with fat layer exposed CKD (chronic kidney disease) (Unknown) per patient attributed to vancomycin toxicity, no kidney biopsy Congestive cardiac failure (Unknown) Diabetes Diabetic peripheral neuropathy associated with type 2 diabetes mellitus HIV disease Hypertension Mixed hyperlipidemia Surgical History H/O foot surgery History of colonoscopy 2010 Peritoneal dialysis catheter in situ (09/23/21) S/P ureteral stent placement Family History Father Hypertension Mother Hypertension Brother Cancer NON [facility]KINS Other CAD (coronary artery disease) Diabetes Social History Smoking and tobacco status: never smoked Alcohol intake: never Marital status: Current occupational status: employed Data Anesthesia 12/21/22 05:25 12/21/22 05:25 Short CBC 12/20/22 12/21/22 Range/Units 04:29 05:25 WBC 20.9 H 13.6 H (4.0-10.0) 10^3/uL Hgb 12.4 12.3 (11.7-16.6) g/dL Hct 40.2 L 40.1 L (42.0-52.0) % MCV 88.7 88.3 (80-94) fl Plt Count 255 250 (130-400) 10^3/cmm Neut % (Auto) 89.6 82.6 % Neut # (Auto) 18.68 H 11.21 H (1.8-7.7) 10^3/uL BMP 12/20/22 12/21/22 04:29 05:25 Sodium 137 140 Potassium 3.0 L 3.2 L Chloride 92 L 93 L Carbon Dioxide 31 H 34 H BUN 88 H* 91 H* Creatinine 4.3 H 4.3 H Glucose 201 H 210 H Calcium 8.4 L 8.4 L Liver Function 12/20/22 12/21/22 Range/Units 04:29 05:25 Total Bilirubin 0.8 1.0 (0.15-1.2) mg/dL AST 15 15 (0-40) U/L ALT 11 9 (0-41) U/L Alkaline Phosphatase 97 89 (40-130) U/L Albumin 2.9 L 3.1 L (3.5-5.2) g/dL Microbiology 12/18/22 03:05 Gram Stain - Final Ascites Fluid Body Fluid Culture - Final 12/18/22 00:35 Urine Culture - Final Urine Catheterized 12/19/22 12:33 MRSA Culture - Final Nose Cardiac Studies: Echocardiogram 12/18/22
--- NOTE | 2022-12-21 10:41 | PM.PN ---
Subjective Subjective: Patient going for permacath today Vitals/I&O/Wt Last Vital Signs Temp 98.0 F 12/21/22 09:58 Pulse 79 12/21/22 09:58 Resp 18 12/21/22 09:58 BP 221/93 12/21/22 09:58 Pulse Ox 99 12/21/22 09:58 O2 Del Method Nasal Cannula 12/21/22 09:58 O2 Flow Rate 3 12/21/22 09:58 12/20/22 12/21/22 12/21/22 22:59 06:59 14:59 Intake Total 710 / 760 50 / 50 Output Total 400 / 900 3465 / 4365 Balance 310 / -140 -3465 / -3605 50 / 50 Physical Exam Narrative: General: No acute distress, awake alert and oriented x3 Abdomen: Soft, nondistended, mild diffuse tenderness to palpation, no guarding rebound or masses Data 12/21/22 05:25 12/21/22 05:25 Micro: Microbiology 12/18/22 03:05 Gram Stain - Final Ascites Fluid Body Fluid Culture - Final 12/18/22 00:35 Urine Culture - Final Urine Catheterized 12/19/22 12:33 MRSA Culture - Final Nose A&P Assessment and plan (1) Leukocytosis: (2) Nausea and vomiting: (3) ESRD (end stage renal disease): Plan Permacath placement The risks and benefits of the procedure, including but not limited to, bleeding, infection, infection requiring Mediport removal antibiotic therapy and repeat surgery, damage to surrounding structures, scar, numbness, pain, pneumothorax requiring thoracostomy tube, were explained to the patient. He/She is understanding of the risks and wishes to proceed. Attestations Medical Necessity Statement*: Per primary Coding Level of Care Code Acute Code for Chg Fwd Diagnoses Leukocytosis D72.829 Nausea and vomiting R11.2 ESRD (end stage renal disease) N18.6
--- NOTE | 2022-12-21 13:15 | SC_ITS ---
WS: [id number] Right dialysis catheter insertion, 12/21/2022 Clinical Data: permacath insertion Comparison: Portable chest, 12/17/2022 Findings: The dialysis catheter has been inserted and the distal tip ends at the cavoatrial junction. SC/C-arm FL for CVA [id number] Impression: Insertion right dialysis catheter.
[2022-12-21] MEDS: lidocaine-epi 2% 20 mL INJ INJECTION (13:42)
[2022-12-21] MEDS: heparin, porcine 1,000 unit/mL INJ 10 mL 10000 UNIT INJECTION (13:56)
--- NOTE | 2022-12-21 14:01 | XRR_ITS ---
PROCEDURE INFORMATION: Exam: XR Chest Exam date and time: 12/21/2022 2:10 PM Age: 57 years old Clinical indication: Other vascular access device placement or adjustment; Other: Dialysis catheter; Additional info: S/P permacath TECHNIQUE: Imaging protocol: Radiologic exam of the chest. Views: 1 view. COMPARISON: CR (CHEST, ) 12/17/2022 9:41 PM FINDINGS: Tubes, catheters and devices: Large caliber central venous access or dialysis catheter seen on the right, with tip of the catheter appearing in good position at the expected level of the cavoatrial junction. A nasogastric tube is suggested and projected in good position with distal aspect appearing below the diaphragm and distal tip not included on the exam. Lungs: Mild pulmonary vascular congestion without focal infiltrate or consolidation. Pleural spaces: Unremarkable. No pleural effusion. No pneumothorax. Heart/Mediastinum: Mild cardiomegaly. Bones/joints: Visualized osseous structures show no acute abnormality. XR/XR chest 1V portable [id number] IMPRESSION: Large caliber central venous access or dialysis catheter on the right appears in good position as noted above.
--- NOTE | 2022-12-21 14:02 | PM.OP ---
Operative Report Date of procedure: December 21, 2022 Pre-op diagnosis: End-stage renal disease Post-op diagnosis: same Procedure done: Permacath placement right internal jugular vein Implants: Permacath Surgeon: Dr. Gato Bledsoe DO Anesthesia: MAC Estimated blood loss (mL): 5 Complications: None apparent Brief History: This is a very pleasant 57-year-old gentleman with end-stage renal disease. He came in with anasarca despite being on peritoneal dialysis. Nephrology requested a permacath. The risk and benefits were explained and documented. Procedure: Patient was taken to the operating room and placed supine on the operating room table. All bony prominences were padded. He was given IV sedation and monitored throughout the case by the anesthesia personnel. SCDs were placed and turned on. The arms were tucked to the side. Patient received Vancomycin preoperatively IV. The bilateral chest wall was prepped and draped in usual sterile fashion using chlorhexidine base prep. Sterile drapes were applied. We did procedure pause prior to beginning. An 18 gauge needle was placed in the right internal jugular vein under ultrasound guidance. Dark, nonpulsatile blood was aspirated. A guidewire was placed through the needle centrally toward the atrial/vena caval junction. Fluoroscopy visualized good placement. The needle was removed and the guidewire was clipped to the drape with a hemostat. Further local anesthetic was infiltrated in the soft tissues of the right chest wall and a #15 blade was used to make a vertical skin incision. A #15 blade was used to make a small skin babatunde around the guidewire insertion area. The permacath tubing was tunneled through the subcutaneous tissues up to the needle insertion location. Serial dilators were used to serially dilate over the guidewire . A dilator with a peel-away sheath was placed over the guidewire and placed centrally. The guidewire was removed as well as the dilator and the permacath was fed into the split sheath. The split sheath was removed. Both ports were aspirated to reveal dark blood and were flushed with saline only as the patient has a heparin allergy. final fluoroscopy visualization showed no kink in the catheter and the tip of the permacath tubing near the atrial/vena caval junction. Both skin incisions were thoroughly irrigated and suctioned dry. Meticulous hemostasis noted. The internal jugular access site was closed with 4-0 Vicryl in a subcuticular fashion. The skin overlying the permacath was closed in a similar manner. The permacath was then sutured into place using 2-0 nylon in a simple interrupted fashion. skin glue was applied as a topical dressing. This was allowed to dry. Patient was awakened from anesthesia and transferred via her cart to the recovery room in stable condition. All needle, sponge, and instrument counts were correct per the operating personnel x2 counts.
--- NOTE | 2022-12-21 14:23 | PC.SOCIAL ---
IMM Update pg 2 of IMM updated and reviewed w/ patients , patient is gone for procedure, copy provided and Copy dated, initialed and placed in chart.
--- NOTE | 2022-12-21 14:44 | P.PCN_ITS ---
PACU note Narrative: VSS, Good respiratory effort, report to PSYCHOLOGICAL AIDE Exam: awake
--- NOTE | 2022-12-21 14:44 | PM.PACU ---
PACU note Narrative: VSS, Good respiratory effort, report to ANIME ARTIST Exam: awake
--- NOTE | 2022-12-21 18:36 | ANE.PACU2 ---
Inpatient post-anesthesia follow up: Airway intact: Yes Vital signs: Temperature 97.4 F Pulse Rate 60 Respiratory Rate 18 Blood Pressure 168/69 Pulse Oximetry 95 Oxygen Delivery Me thod [ Nasal Cannula Current Rate & Del leola] Oxygen Delivery Me thod Nasal Cannula Oxygen Flow Rate [ Current Rate 3 & Delivery] Oxygen Flow Rate 3 Fraction of Inspir ed Oxygen Hydration adequate: Yes Nausea and vomiting: No Pain level: 2 Mental status: Baseline
[2022-12-21] MEDS: heparin, porcine 1,000 unit/mL INJ 10 mL 10000 UNIT HE (19:20)
[2022-12-21] MEDS: linezolid premix 600 MG/300 ML PREMIX 300 MG IV (19:22)
[2022-12-21] MEDS: calcium acetate 667 mg Capsule PO (19:48)
[2022-12-21] MEDS: tamsulosin 0.4 mg Capsule 0.8 MG PO (19:49)
--- NOTE | 2022-12-21 19:49 | P.PN_ITS ---
Subjective Subjective: s/p perm cath placement today Medications: Reviewed: Yes Vitals/I&O/Wt Last Vital Signs Temp 97.4 F L 12/21/22 14:19 Pulse 60 12/21/22 14:44 Resp 18 12/21/22 14:44 BP 162/65 12/21/22 19:47 Pulse Ox 95 12/21/22 14:44 O2 Del Method Nasal Cannula 12/21/22 14:44 O2 Flow Rate 3 12/21/22 14:44 12/21/22 12/21/22 12/21/22 06:59 14:59 22:59 Intake Total 50 / 50 Output Total 3465 / 4365 Balance -3465 / -3605 Physical Exam Narrative: Patient awake alert, no distress PEERLA S1-S2 regular rate and rhythm per report Clear to auscultation per report Diffuse mild abdominal tenderness per report 2+ pedal edema Anasarca Data 12/21/22 05:25 12/21/22 05:25 Micro: Microbiology 12/18/22 03:05 Gram Stain - Final Ascites Fluid Body Fluid Culture - Final 12/18/22 00:35 Urine Culture - Final Urine Catheterized 12/19/22 12:33 MRSA Culture - Final Nose A&P Assessment and plan (1) ESRD (end stage renal disease): Plan 1. End-stage renal disease: On peritoneal dialysis, concern for possible peritonitis given abdominal tenderness. But peritoneal effluent had been clear s Gram stain negative and Cultures negative -s/p cefazolin plus cefepime intraperitoneal . Negative PD fluid cultures- Discontinued abx -Spoke to Patient's PD nurse at [facility],- pt has been having poor UF with PD and was planning for PD catheter reposition - pt has Anasarca and would benefit from switching temporarily to HD for volume management and Uremia -Pt agrees to the plan and general surgery placed PD catheter today , HD for 3 hours today 2. Leukocytosis: With left shift, unclear source of infection, possibilities include possible pneumonia/peritonitis/other abdominal pathology. On systemic antibiotics as well as antibiotics with PD fluid-PD abx dcd due to neg cultures . c/w Diflucan Follow blood cultures and PD fluid cultures 3. Hypokalemia : Mild, replete 4. DM 5. HIV disease Patient evaluated using audiovisual cart. Time spent 45 minutes Attestations 2 Medical Necessity Statement*: per medicine team Coding Level of Care Code Acute Code for Chg Fwd Diagnoses ESRD (end stage renal disease) N18.6
[2022-12-21 20:04] LABS: Glucose Point of Care 169 mg/dL (70-110)
--- NOTE | 2022-12-21 20:15 | PC.HD ---
Pt in Surgery by 10 this morning, did not return to room until nearly 3 this afternoon. [facility] dialysis cath in place, open to air without dressing, Georgina ANDERSON stated she was told that Dr Bledsoe said a dressing was not needed. Ports draw and flush well. AP & CARPET WINDER increasing during treatment, Dr Bowers ntfd and Heparin 1000 unit load and 500 units per hour during treatment given per order. Pt hypertensive throughout treatment in spite of fluid removal and increased machine temp. Initial hemodialysis treatment completed without incident and pt tolerated well.
[2022-12-21] MEDS: nystatin cream 30 gm 1 APPLIC TOPICAL (20:57)
[2022-12-21] MEDS: heparin 5,000 unit/mL INJ 1 mL 5000 UNIT SUBCUT (20:57)
--- NOTE | 2022-12-21 21:27 | PC.NURSE ---
call placed to Dr. Boone to verify fluid orders from surgical team, due to high BP, order to hold fluids
[2022-12-21] MEDS: insulin glargine 100 units/1 mL 20 UNIT SUBCUT (21:37)
--- NOTE | 2022-12-21 21:42 | PM.PN ---
Subjective Subjective: Awaiting dialysis catheter placement. States he is ready for a glass of water . Denies trouble breathing. No pain or discomfort. Nausea slightly better. Medications: Reviewed: Yes Vitals/I&O/Wt Last Vital Signs Temp 97.9 F 12/21/22 20:04 Pulse 61 12/21/22 20:04 Resp 16 12/21/22 20:04 BP 175/71 12/21/22 20:56 Pulse Ox 95 12/21/22 14:44 O2 Del Method Nasal Cannula 12/21/22 14:44 O2 Flow Rate 3 12/21/22 14:44 12/21/22 12/21/22 12/21/22 06:59 14:59 22:59 Intake Total 50 / 50 1800 / 1850 Output Total 3465 / 4365 5 / 3011 / 3016 Balance -3465 / -3605 45 / 45 -1211 / -1166 Weight last 48 hrs Weight 173.2 kg Physical Exam Const: COMMON NORMALS: patient oriented x3 and alert GENERAL APPEARANCE: cooperative NUTRITIONAL APPEARANCE: obese ORIENTATION/CONSCIOUSNESS: Yes awake HENMT: COMMON NORMALS: oropharynx normal Neck/C-Spine: COMMON NORMALS: no JVD Resp: COMMON NORMALS: normal respiratory effort and clear to auscultation bilaterally AUSCULTATION: clear to auscultation bilaterally Cardio: COMMON NORMALS: no JVD, regular rhythm, S1 normal heart sound present, S2 normal heart sound present and No murmurs present (Cardio) RHYTHM: regular rhythm HEART SOUNDS: S1 normal heart sound present and S2 normal heart sound present GI: COMMON NORMALS: Normal to inspection, nondistended, normoactive bowel sounds present, Soft to palpation and non-tender PALPATION: Yes Soft to palpation Extremity: COMMON NORMALS: no joint enlargement and no pedal edema Neuro: COMMON NORMALS: patient oriented x3 and moves all extremities SENSORIUM/ORIENTATION: Yes alert Skin: COMMON NORMALS: no rashes or lesions noted GENERAL SKIN EXAM: no rashes or lesions noted Data 12/21/22 05:25 12/21/22 05:25 Micro: Microbiology 12/18/22 03:05 Gram Stain - Final Ascites Fluid Body Fluid Culture - Final 12/18/22 00:35 Urine Culture - Final Urine Catheterized A&P Assessment and plan (1) Leukocytosis: CBC appreciated, WBC down to 13.6, neutrophils 11.2. Reviewing peritoneal fluid culture, no growth on final culture. Blood culture preliminary preliminary without growth. He is nauseated no abdominal pain. Most history obtained from his as he is not feeling well. Unclear etiology of leukocytosis. Continue empiric antibiotic coverage with Zosyn, linezolid, and intracatheter antibiotics. Nephrology also added Diflucan. Pending assessment for possible peritonitis. Some lower extremity ulcers, significant edema. Echo appreciated, normal EF, trace valvular abnormalities. With vomiting, possibility of aspiration. MRSA PCR noted negative. CT demonstrated some free air. This may be secondary to peritoneal dialysis catheter. He has no clinical evidence of GI bleeding. Secondary to recurrent vomiting, NG was placed yesterday. He has had a fair amount of output from this. Surgery is following as well. (2) CKD (chronic kidney disease): Tunneled catheter placement today. Subsequently hemodialysis. Hopefully symptoms will improve with improvement in uremia. Discussed with surgery. ESRD, arrangements for hemodialysis. PD tonight. Per discussion with surgery. Surgery documentation, nephrology documentation reviewed. Question of possibility of degree of uremia with nausea and vomiting. BMP daily (3) Lymphedema: Patient is with significant lymphedema to his lower extremities. Venous duplex negative for DVT Unremarkable echocardiogram. One in April showed diastolic dysfunction but was otherwise unremarkable (4) Diabetes: Lantus 20 units. Continue sliding scale. If he is able to take p.o. this will need to be increased drastically Currently n.p.o. (5) HIV disease: Biktarvy on hold (6) Fall: This may be vasovagal as it happened with him urinating. Could be related to infection. Continue telemetry, Echocardiogram unremarkable Plan Hypertension, continue home medications. Blood pressure still elevated. Add amlodipine. Tinea, groins. Nystatin cream twice daily Multiple other medical problems as delineated in his past medical history Full code Heparin for DVT prophylaxis PT consultation I have visited extensively with surgery yesterday prior to the consult regarding their opinion, and following their evaluation as well. Attestations Medical Necessity Statement*: Continue admission for assessment management of leukocytosis, possible peritonitis, arrangements for hemodialysis due to uremia. Diagnoses Leukocytosis D72.829 CKD (chronic kidney disease) N18.9 Lymphedema I89.0 Diabetes E11.9 HIV disease B20 Fall W19.XXXA
[2022-12-21 21:57] LABS: Hepatitis A Antibody IgM Non-Reactive (Nonreactive); Hepatitis B Core AB, Total Non-Reactive (Nonreactive); Hepatitis B Surface Antigen Non-Reactive (Nonreactive); Hepatitis C Virus Antibody Non-Reactive (Nonreactive)
[2022-12-21 23:02] LABS: Hepatitis B Surface AB > 1000.0 (11.5-1000)
[2022-12-22] VITALS (13 sets, daily range): BP systolic 129–206; BP diastolic 61–89; PULSE 60–87; RESP 16–19; TEMP 35.9–36.8; O2SAT 93–98
[2022-12-22] MEDS: linezolid premix 600 MG/300 ML PREMIX 300 MG IV ×2 (03:31→15:02)
[2022-12-22] MEDS: pantoprazole 40 mg SDV IVP ×2 (03:58→15:08)
[2022-12-22] MEDS: piperacillin-tazobactam 3.375 GM in sodium chloride 0.9% (plus) 50 ML IV ×2 (04:24→22:32)
[2022-12-22] MEDS: cloNIDine 0.1 mg Tablet PO ×2 (05:59→18:09)
[2022-12-22] MEDS: cholecalciferol (vitamin D3) 5,000 unit Tablet 5000 UNIT PO (05:59)
[2022-12-22] MEDS: minoxidil 10 mg Tablet 5 MG PO (05:59)
[2022-12-22] MEDS: TORSEmide 20 mg Tablet 100 MG PO (05:59)
[2022-12-22] MEDS: allopurinol 300 mg Tablet PO (05:59)
[2022-12-22] MEDS: b-complex-vitamin c Tablet 1 EACH PO (05:59)
[2022-12-22 06:01] LABS: Basophils % 0.4 %; Eosinophils # 0.1 10^3/uL (0.0-0.8); Eosinophils % 0.9 %; Hematocrit 39.3 % (42.0-52.0); Lymphocytes # 1.5 10^3/uL (0.8-4.8); Lymphocytes % 14.3 %; Mean Corpuscular HGB Conc 30.5 g/dL (30.0-36.0); Mean Corpuscular Hemoglobin 27.1 pg (28.0-34.0); Mean Corpuscular Volume 88.9 fl (80-94); Mean Platelet Volume 9.8 fL (7.4-10.4); Monocytes # 0.7 10^3/uL (0.2-0.9); Monocytes % 6.4 %; Neutrophils # 7.88 10^3/uL (1.8-7.7); Neutrophils % 77.1 %; Nucleated Red Blood Cells % 0 %; Platelet Count 220 10^3/cmm (130-400); Red Blood Count 4.42 10^6/uL (4.1-5.3); Red Cell Distribution Width 16.4 % (12.1-15.1); White Blood Count 10.2 10^3/uL (4.0-10.0)
[2022-12-22 06:19] LABS: Alanine Aminotransferase 7 U/L (0-41); Alkaline Phosphatase 77 U/L (40-130); Anion Gap 11.2 (5-19); Aspartate Amino Transferase 12 U/L (0-40); Blood Urea Nitrogen 66 mg/dL (6-20); Calcium 8.1 mg/dL (8.5-10.5); Carbon Dioxide 34 mmol/L (22-29); Chloride 94 mmol/L (98-107); Globulin 3.4 g/dL (1.3-4.6); Glomerular Filtration Rate 17.5 mL/min (90-130); Glucose 185 mg/dL (65-115); Osmolality Calculated 306 mOsm/kg (285-295); Potassium 3.2 mmol/L (3.5-5.1); Sodium 136 mmol/L (136-145); Total Bilirubin 1.2 mg/dL (0.15-1.2); Total Protein 6.4 g/dL (6.6-8.7)
[2022-12-22 06:36] LABS: Glucose Point of Care 153 mg/dL (70-110)
[2022-12-22] MEDS: metoprolol tartrate 50 mg Tablet 150 MG PO ×2 (08:29→21:00)
[2022-12-22] MEDS: calcium acetate 667 mg Capsule PO ×3 (08:30→18:09)
[2022-12-22] MEDS: heparin 5,000 unit/mL INJ 1 mL 5000 UNIT SUBCUT ×2 (08:30→20:44)
[2022-12-22] MEDS: insulin lispro 100 unit/1 mL SUBCUT ×4 (08:30→22:11)
[2022-12-22] MEDS: hyDRALAzine 50 mg Tablet PO (08:30)
[2022-12-22] MEDS: fluconazole 100 mg Tablet PO (08:30)
[2022-12-22] MEDS: amlodipine 5 mg Tablet PO (08:30)
[2022-12-22] MEDS: nystatin cream 30 gm 1 APPLIC TOPICAL ×2 (08:38→18:10)
--- NOTE | 2022-12-22 10:05 | PM.PN ---
Subjective Subjective: seen and examined. states he is hungry. s/p HD yesterday. NG tube was removed Medications: Reviewed: Yes Medication Review Details: Current Medications Acetaminophen (Acetaminophen 325 Mg Tablet) 650 mg PO Q6H PRN PRN Reason: Mild/Mod Pain Or Temp >/= 101 Albuterol Sulfate (Albuterol 2.5 Mg/3 Ml Neb) 2.5 mg INHALATION ONCE PRN PRN Reason: WHEEZING Allopurinol (Allopurinol 300 Mg Tablet) 300 mg PO DAILY@06 [facility] Last Admin: 12/22/22 05:59 Dose: 300 mg Amlodipine Besylate (Amlodipine 5 Mg Tablet) 5 mg PO DAILY [facility] Last Admin: 12/22/22 08:30 Dose: 5 mg Benzocaine (Cetylpyridinium Lozenge) 1 each MUCOUS MEM ONCE PRN PRN Reason: SORE THROAT Calcium Acetate (Calcium Acetate 667 Mg Capsule) 667 mg PO TIDWM [facility] Last Admin: 12/22/22 08:30 Dose: 667 mg Clonidine HCl (Clonidine 0.1 Mg Tablet) 0.1 mg PO TID@05,12,18 [facility] Last Admin: 12/22/22 05:59 Dose: 0.1 mg Dextrose (Dextrose 50% Syringe 50 Ml) 50 ml IVP PRN PRN; Protocol PRN Reason: hypoglycemia protocol Dextrose (Dextrose 50% Syringe 50 Ml) 25 ml IVP ONCE PRN; Protocol PRN Reason: hypoglycemia protocol Diphenhydramine HCl (Diphenhydramine 50 Mg/Ml Sdv 1ml) 12.5 mg IVP ONCE PRN PRN Reason: PONV Diphenhydramine HCl (Diphenhydramine 50 Mg/Ml Sdv 1ml) 12.5 mg IVP ONCE PRN PRN Reason: Postop N/V Docusate Sodium (Docusate Sodium 100 Mg Capsule) 100 mg PO BID PRN PRN Reason: Constipation Famotidine (Famotidine 20 Mg/2 Ml Inj) 20 mg IVP ONCE PRN PRN Reason: HEARTBURN Fentanyl (Fentanyl 50 Mcg/Ml Inj 2ml) 50 mcg IVP ONCE PRN PRN Reason: Preop Pain Fluconazole (Fluconazole 100 Mg Tablet) 100 mg PO DAILY [facility] Last Admin: 12/22/22 08:30 Dose: 100 mg Gentamicin Sulfate (Gentamicin 0.1% Cream 15 Gm) 0 applic TOPICAL DAILY PRN PRN Reason: EXIT SITE DIRECTED Glucagon (Glucagon 1 Mg/Ml Inj 1 Ml) 1 mg IM ONCE PRN; Protocol PRN Reason: Adult Acute Hypoglycemia Prot. Heparin Sodium (Porcine) (Heparin 5,000 Unit/Ml Inj 1 Ml) 5,000 unit SUBCUT Q12H [facility] Last Admin: 12/22/22 08:30 Dose: 5,000 unit Hydralazine HCl (Hydralazine 50 Mg Tablet) 50 mg PO QID [facility] Last Admin: 12/22/22 08:30 Dose: 50 mg Hydralazine HCl (Hydralazine 20 Mg/Ml Inj 1 Ml) 10 mg IVP Q4H PRN PRN Reason: HYPERTENSION Last Admin: 12/20/22 05:07 Dose: 10 mg Hydromorphone HCl (Hydromorphone 1 Mg/Ml Inj 1 Ml) 0.5 mg IVP ONCE PRN PRN Reason: Phase II postop pain Hydromorphone HCl (Hydromorphone 1 Mg/Ml Inj 1 Ml) 0.5 mg IVP ONCE PRN PRN Reason: For preop pain/anxiety Hydromorphone HCl (Hydromorphone 1 Mg/Ml Inj 1 Ml) 0.5 mg IVP Q4H PRN PRN Reason: PAIN Dextrose (D5w) 500 mls @ 100 mls/hr IV ONCE PRN; Protocol PRN Reason: Adult Acute Hypoglycemia Prot Piperacillin Sod/Tazobactam (Sod 3.375 gm/ Sodium Chloride) 50 mls @ 12.5 mls/hr IV Q12H JELLY; Protocol Last Admin: 12/22/22 04:24 Dose: 12.5 mls/hr Albumin Human (Albumin) 12.5 gm in 50 mls @ 60 mls/hr IV PRN PRN PRN Reason: Hypotension and/or symptomatic Sodium Chloride (Sodium Chloride 0.9%) 1,000 mls @ 0 mls/hr IV .Q0M PRN PRN Reason: hypotension or symptomatic Linezolid (Zyvox Premix) 600 mg in 300 mls @ 300 mls/hr IV Q12H JELLY; Protocol Last Infusion: 12/22/22 04:56 Dose: Infused Insulin Glargine (Insulin Glargine 100 Units/1 Ml) 20 unit SUBCUT BEDTIME [facility] Last Admin: 12/21/22 21:37 Dose: 20 unit Insulin Human Lispro (Insulin Lispro 100 Unit/1 Ml) 0 unit SUBCUT WM&BEDTIME [facility]; Protocol Last Admin: 12/22/22 08:30 Dose: 2 unit Ipratropium Thaxton (Ipratropium 0.5 Mg/2.5 Ml Neb) 0.5 mg INHALATION ONCE PRN PRN Reason: WHEEZING Loratadine (Loratadine 10 Mg Tablet) 10 mg PO DAILY PRN PRN Reason: Allergy Symptoms Meperidine HCl (Meperidine 50 Mg/Ml Inj) 12.5 mg IVP ONCE PRN PRN Reason: Shivering PACU Phase I Metoprolol Tartrate (Metoprolol Tartrate 50 Mg Tablet) 150 mg PO BID [facility] Last Admin: 12/22/22 08:29 Dose: 150 mg Midazolam HCl (Midazolam 1 Mg/Ml Inj 2 Ml) 2 mg IVP ONCE PRN PRN Reason: Preop Anxiety Minoxidil (Minoxidil 10 Mg Tablet) 5 mg PO DAILY@06 [facility] Last Admin: 12/22/22 05:59 Dose: 5 mg Multivitamins (P-Bwkybyw-Yqeybyq C Tablet) 1 each PO DAILY@06 [facility] Last Admin: 12/22/22 05:59 Dose: 1 each Non-Formulary Medication (Sorbitol) 30 ml PO BID PRN PRN Reason: constipation Non-Formulary Medication (Pd Icodextrin Pd-2 7.5% Icodextrin) 1 each XX Q6H [facility] Last Admin: 12/22/22 09:10 Dose: Not Given Nystatin (Nystatin Cream 30 Gm) 1 applic TOPICAL BID [facility] Last Admin: 12/22/22 08:38 Dose: 1 applic Ondansetron HCl (Ondansetron 2 Mg/Ml Sdv 2 Ml) 4 mg IVP Q6H PRN PRN Reason: vomiting, or N/V if npo Last Admin: 12/21/22 05:46 Dose: 4 mg Ondansetron HCl (Ondansetron 2 Mg/Ml Sdv 2 Ml) 4 mg IVP ONCE PRN PRN Reason: Nausea PACU Phase I Ondansetron HCl (Ondansetron 2 Mg/Ml Sdv 2 Ml) 4 mg IVP ONCE PRN PRN Reason: Nausea/Vomiting PACU PHASE II Ondansetron HCl (Ondansetron 2 Mg/Ml Sdv 2 Ml) 4 mg IVP ONCE PRN PRN Reason: NAUSEA AND VOMITING Pantoprazole Sodium (Pantoprazole 40 Mg Sdv) 40 mg IVP Q12H [facility] Last Admin: 12/22/22 03:58 Dose: 40 mg Scopolamine (Scopolamine 1.5 Patch) 1 patch TRANSDERMA ONCE PRN PRN Reason: Nausea/ Vomiting Prophylaxis Tamsulosin HCl (Tamsulosin 0.4 Mg Capsule) 0.8 mg PO QPM [facility] Last Admin: 12/21/22 19:49 Dose: 0.8 mg Torsemide (Torsemide 20 Mg Tablet) 100 mg PO DAILY@0630 [facility] Last Admin: 12/22/22 05:59 Dose: 100 mg Triamcinolone Acetonide (Triamcinolone 0.1% Cream 15 Gm) 1 applic TOPICAL DAILY PRN PRN Reason: rash Vitamin D (Cholecalciferol (Vitamin D3) 5,000 Unit Tablet) 5,000 unit PO DAILY@06 [facility] Last Admin: 12/22/22 05:59 Dose: 5,000 unit Vitals/I&O/Wt Last Vital Signs Temp 97.5 F L 12/22/22 07:55 Pulse 87 12/22/22 08:00 Resp 18 12/22/22 07:55 BP 167/83 12/22/22 07:55 Pulse Ox 97 12/22/22 08:00 O2 Del Method Nasal Cannula 12/22/22 08:00 O2 Flow Rate 3 12/22/22 08:00 12/21/22 12/22/22 12/22/22 22:59 06:59 14:59 Intake Total 1800 / 1850 350 / 2200 Output Total 3611 / 3616 3625 400 / 400 Balance -1811 / -1766 340 / -1426 -400 / -400 Weight last 48 hrs Weight 173.2 kg Physical Exam Narrative: vs noted obese in bed, NARD heent- nc/at, eomi, anicteric neck supple lungs good air movement heart reg abd soft, tender left side, right sided peritoneal dialysis catheter ext 2+ leg edema neuro- a,a, o x 2 Data 12/22/22 05:24 12/22/22 05:24 Micro: Microbiology 12/18/22 03:05 Gram Stain - Final Ascites Fluid Body Fluid Culture - Final 12/18/22 00:35 Urine Culture - Final Urine Catheterized A&P Assessment and plan (1) ESRD (end stage renal disease): Plan 1. End-stage renal disease: On peritoneal dialysis, concern for possible peritonitis given abdominal tenderness. But peritoneal effluent had been clear s Gram stain negative and Cultures negative -s/p cefazolin plus cefepime intraperitoneal . Negative PD fluid cultures- Discontinued abx - by Dr Bowers - pt was transitioned from PD to HD as he has anasarca and Q of uremia -s/p HD yessterday -repeat HD today via Rt IJ PC for 3.5 3 hours today 2. Leukocytosis: With left shift,-improving w/ diflucan and abx- Follow blood cultures and PD fluid cultures 3. Hgb good 4. hypokalemia :4 k bath or replete k 5. bicarb 34-check abg 6. DM control per medicine 7. HIV disease 8. htn- he is on many meds- will wean down minoxidil, clonidine, and hydralazine. can use ARB if needed Patient evaluated using audiovisual cart. examined via RN Time spent 30 + minutes Attestations Medical Necessity Statement*: infection, esrd Time Spent in Patient Care: 16 - 35 minutes (>than 50% of time spent in counselling and/or direct pt care on unit). Coding Level of Care Code Acute Code for Chg Fwd Diagnoses ESRD (end stage renal disease) N18.6
[2022-12-22 11:25] LABS: Hepatitis B Surface Antigen Non-Reactive (Nonreactive); Hepatitis C Virus Antibody Non-Reactive (Nonreactive)
[2022-12-22 11:35] LABS: ABG PH Result 7.43 (7.35-7.45); Arterial Blood Gas Hematocrit 39.7 % (42-52); Blood Gas Allen Test Pos; Blood Gas Sample Site Radial, right; Blood Gas Sample Type Arterial; Carboxyhemoglobin 1.2 %THgb (0.4-20.1); HCO3 ABG 37.3 mmol/L (22-26); HGB O2 Sat 96.2 % (95-100); Ionized Calcium Level - ABG 1.1 mmol/L (1.1-1.4); Methemoglobin < 0.0 % (0.4-1.5); Oxygen Device ROOM AIR; PO2 ABG 85.9 mmHg (80.0-100.0); Potassium Level - ABG 3.5 mmol/L (3.5-5.0)
[2022-12-22 11:44] LABS: Glucose Point of Care 186 mg/dL (70-110)
[2022-12-22 11:47] LABS: Hepatitis B Surface AB > 1000.0 (11.5-1000)
[2022-12-22] MEDS: potassium chloride ER 20 mEq Tablet 40 MEQ PO (11:58)
[2022-12-22] MEDS: hyDRALAzine 25 mg Tablet PO ×3 (11:58→23:36)
--- NOTE | 2022-12-22 14:00 | PM.PN ---
Subjective Subjective: Patient feels much better this morning. Denies any nausea or vomiting. Passing significant flatus. Vitals/I&O/Wt Last Vital Signs Temp 98.0 F 12/22/22 11:57 Pulse 60 12/22/22 11:57 Resp 18 12/22/22 11:57 BP 152/76 12/22/22 11:57 Pulse Ox 98 12/22/22 11:57 O2 Del Method Nasal Cannula 12/22/22 11:57 O2 Flow Rate 3 12/22/22 08:00 12/21/22 12/22/22 12/22/22 22:59 06:59 14:59 Intake Total 1800 / 1850 350 / 2200 50 / 50 Output Total 3611 / 3616 10 3625 400 / 400 Balance -1811 / -1766 340 / -1426 -350 / -350 Weight last 48 hrs Weight 381 lb 13.45 oz Physical Exam Narrative: General: No acute distress, awake alert and oriented x3 Abdomen: Soft, nondistended, mild diffuse tenderness to palpation, no guarding rebound or masses Data 12/22/22 05:24 12/22/22 05:24 Micro: Microbiology 12/18/22 03:05 Gram Stain - Final Ascites Fluid Body Fluid Culture - Final 12/18/22 00:35 Urine Culture - Final Urine Catheterized A&P Assessment and plan (1) Leukocytosis: (2) Nausea and vomiting: (3) ESRD (end stage renal disease): Plan Postoperative day #1 status post right internal jugular permacath placement DC NG tube Clear liquid diet, advance to renal diet as tolerated I am available for removal of peritoneal dialysis catheter and/or replacement as determined by nephrology Attestations Medical Necessity Statement*: Per primary Coding Level of Care Code Acute Code for Chg Fwd Diagnoses Leukocytosis D72.829 Nausea and vomiting R11.2 ESRD (end stage renal disease) N18.6
[2022-12-22] MEDS: tamsulosin 0.4 mg Capsule 0.8 MG PO (18:09)
--- NOTE | 2022-12-22 20:20 | P.PN_ITS ---
Subjective Subjective: Today he is feeling better. Nausea and vomiting resolved. No abdominal pain. Vitals/I&O/Wt Last Vital Signs Temp 97.7 F 12/22/22 16:00 Pulse 62 12/22/22 16:00 Resp 16 12/22/22 16:00 BP 206/88 12/22/22 18:09 Pulse Ox 98 12/22/22 16:00 O2 Del Method Nasal Cannula 12/22/22 16:00 O2 Flow Rate 2.5 12/22/22 16:00 12/22/22 12/22/22 12/22/22 06:59 14:59 22:59 Intake Total 350 / 2200 290 / 290 Output Total 3625 400 / 400 Balance 340 / -1426 -110 / -110 Weight last 48 hrs Weight 173.2 kg Physical Exam 2 Const: COMMON NORMALS: patient oriented x3 and alert GENERAL APPEARANCE: cooperative NUTRITIONAL APPEARANCE: obese ORIENTATION/CONSCIOUSNESS: Yes awake HENMT: COMMON NORMALS: oropharynx normal Neck/C-Spine: COMMON NORMALS: no JVD Resp: COMMON NORMALS: normal respiratory effort and clear to auscultation bilaterally AUSCULTATION: clear to auscultation bilaterally Cardio: COMMON NORMALS: no JVD, regular rhythm, S1 normal heart sound present, S2 normal heart sound present and No murmurs present (Cardio) RHYTHM: regular rhythm HEART SOUNDS: S1 normal heart sound present and S2 normal heart sound present GI: COMMON NORMALS: Normal to inspection, nondistended, normoactive bowel sounds present, Soft to palpation and non-tender PALPATION: Yes Soft to palpation Extremity: COMMON NORMALS: no joint enlargement NARRATIVE EXTREMITY EXAM: Extensive lymphedema bilateral lower extremities Neuro: COMMON NORMALS: patient oriented x3 and moves all extremities SENSORIUM/ORIENTATION: Yes alert Skin: COMMON NORMALS: no rashes or lesions noted GENERAL SKIN EXAM: no rashes or lesions noted Data 12/22/22 05:24 12/22/22 05:24 A&P Assessment and plan (1) Nausea and vomiting: Resolved. Surgery documentation appreciated. NGT removed. Trial of clear liquids. He is feeling better with improvement in uremia with dialysis. (2) CKD (chronic kidney disease): Hemodialysis today. Outpatient dialysis being arranged, he will be on TTS schedule. I am not yet available per discussion with case management. 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 Discussed with nephrology. Follow-up chemistry. (3) Leukocytosis: Leukocytosis continues to resolve. No further intraperitoneal catheter antibiotics. Continue systemic antibiotic. Possible peritonitis. Reviewing peritoneal fluid culture, no growth on final culture. Blood culture preliminary preliminary without growth. Continue empiric antibiotic coverage with Zosyn, linezolid, and intracatheter antibiotics. Nephrology also added Diflucan. Some lower extremity ulcers, significant edema. Echo appreciated, normal EF, trace valvular abnormalities. With vomiting, possibility of aspiration. MRSA PCR noted negative. CT demonstrated some free air. This may be secondary to peritoneal dialysis catheter. He has no clinical evidence of GI bleeding. Secondary to recurrent vomiting, NG was placed yesterday. He has had a fair amount of output from this. Surgery is following as well. (4) Lymphedema: Patient is with significant lymphedema to his lower extremities. Venous duplex negative for DVT Unremarkable echocardiogram. One in April showed diastolic dysfunction but was otherwise unremarkable States arrangements pending on outpatient side for follow-up with lymphedema specialist. (5) Diabetes: Continue Lantus 20 units. Continue sliding scale. Change diet to consistent carbohydrate. (6) HIV disease: Resume Biktarvy. (7) Fall: This may be vasovagal as it happened with him urinating. Could be related to in fection. Continue telemetry, Echocardiogram unremarkable Plan Hypertension, continue home medications. Blood pressure still elevated. Increase amlodipine. Tinea, groins. Nystatin cream twice daily Multiple other medical problems as delineated in his past medical history Full code Heparin for DVT prophylaxis PT consultation I have visited extensively with surgery yesterday prior to the consult regarding their opinion, and following their evaluation as well. Attestations Medical Necessity Statement*: Continue admission for assessment management of suspected peritonitis, uremia, arrangements for outpatient dialysis. Diagnoses Nausea and vomiting R11.2 CKD (chronic kidney disease) N18.9 Leukocytosis D72.829 Lymphedema I89.0 Diabetes E11.9 HIV disease B20 Fall W19.XXXA
--- NOTE | 2022-12-22 21:50 | PC.NURSE ---
blood sugar tonight 240
[2022-12-22] MEDS: insulin glargine 100 units/1 mL 20 UNIT SUBCUT (23:06)
[2022-12-23] VITALS (8 sets, daily range): BP systolic 152–191; BP diastolic 72–84; PULSE 57–66; RESP 16–18; TEMP 36.4–36.8; O2SAT 92–98
[2022-12-23] MEDS: linezolid premix 600 MG/300 ML PREMIX 300 MG IV ×2 (02:28→20:23)
[2022-12-23] MEDS: pantoprazole 40 mg SDV IVP ×2 (04:40→17:49)
[2022-12-23] MEDS: b-complex-vitamin c Tablet 1 EACH PO (05:36)
[2022-12-23] MEDS: allopurinol 300 mg Tablet PO (05:36)
[2022-12-23] MEDS: cholecalciferol (vitamin D3) 5,000 unit Tablet 5000 UNIT PO (05:36)
[2022-12-23] MEDS: minoxidil 10 mg Tablet 2.5 MG PO (05:38)
[2022-12-23] MEDS: TORSEmide 20 mg Tablet 100 MG PO (06:38)
[2022-12-23 07:15] LABS: Basophils # 0.1 10^3/uL (0.0-0.1); Basophils % 0.5 %; Eosinophils # 0.2 10^3/uL (0.0-0.8); Eosinophils % 2.3 %; Hematocrit 39.6 % (42.0-52.0); Hemoglobin 12.1 g/dL (11.7-16.6); Lymphocytes % 20.3 %; Mean Corpuscular HGB Conc 30.6 g/dL (30.0-36.0); Mean Corpuscular Hemoglobin 26.7 pg (28.0-34.0); Mean Corpuscular Volume 87.2 fl (80-94); Mean Platelet Volume 9.5 fL (7.4-10.4); Monocytes # 0.6 10^3/uL (0.2-0.9); Monocytes % 5.7 %; Neutrophils # 6.87 10^3/uL (1.8-7.7); Nucleated Red Blood Cells % 0 %; Platelet Count 201 10^3/cmm (130-400); Red Blood Count 4.54 10^6/uL (4.1-5.3); White Blood Count 9.8 10^3/uL (4.0-10.0)
[2022-12-23 07:28] LABS: Alanine Aminotransferase 13 U/L (0-41); Albumin Level 3.1 g/dL (3.5-5.2); Alkaline Phosphatase 71 U/L (40-130); Anion Gap 13.4 (5-19); Aspartate Amino Transferase 17 U/L (0-40); Blood Urea Nitrogen 46 mg/dL (6-20); Calcium 8.1 mg/dL (8.5-10.5); Carbon Dioxide 29 mmol/L (22-29); Chloride 95 mmol/L (98-107); Globulin 3.2 g/dL (1.3-4.6); Glucose 234 mg/dL (65-115); Osmolality Calculated 297 mOsm/kg (285-295); Phosphorus 3.2 mg/dL (2.5-4.5); Potassium 3.4 mmol/L (3.5-5.1); Sodium 134 mmol/L (136-145); Total Bilirubin 1.2 mg/dL (0.15-1.2); Total Protein 6.3 g/dL (6.6-8.7)
--- NOTE | 2022-12-23 08:50 | P.PN_ITS ---
Subjective Subjective: feels better. no n/v. still weak. edema improving Medications: Reviewed: Yes Medication Review Details: Current Medications Acetaminophen (Acetaminophen 325 Mg Tablet) 650 mg PO Q6H PRN PRN Reason: Mild/Mod Pain Or Temp >/= 101 Allopurinol (Allopurinol 300 Mg Tablet) 300 mg PO DAILY@06 [facility] Last Admin: 12/23/22 05:36 Dose: 300 mg Amlodipine Besylate (Amlodipine 5 Mg Tablet) 10 mg PO DAILY [facility] Calcium Acetate (Calcium Acetate 667 Mg Capsule) 667 mg PO TIDWM [facility] Last Admin: 12/22/22 18:09 Dose: 667 mg Clonidine HCl (Clonidine 0.1 Mg Tablet) 0.1 mg PO BID [facility] Last Admin: 12/22/22 18:09 Dose: 0.1 mg Dextrose (Dextrose 50% Syringe 50 Ml) 50 ml IVP PRN PRN; Protocol PRN Reason: hypoglycemia protocol Dextrose (Dextrose 50% Syringe 50 Ml) 25 ml IVP ONCE PRN; Protocol PRN Reason: hypoglycemia protocol Docusate Sodium (Docusate Sodium 100 Mg Capsule) 100 mg PO BID PRN PRN Reason: Constipation Fluconazole (Fluconazole 100 Mg Tablet) 100 mg PO DAILY [facility] Last Admin: 12/22/22 08:30 Dose: 100 mg Gentamicin Sulfate (Gentamicin 0.1% Cream 15 Gm) 0 applic TOPICAL DAILY PRN PRN Reason: EXIT SITE DIRECTED Glucagon (Glucagon 1 Mg/Ml Inj 1 Ml) 1 mg IM ONCE PRN; Protocol PRN Reason: Adult Acute Hypoglycemia Prot. Heparin Sodium (Porcine) (Heparin 5,000 Unit/Ml Inj 1 Ml) 5,000 unit SUBCUT Q12H [facility] Last Admin: 12/22/22 20:44 Dose: 5,000 unit Hydralazine HCl (Hydralazine 20 Mg/Ml Inj 1 Ml) 10 mg IVP Q4H PRN PRN Reason: HYPERTENSION Last Admin: 12/20/22 05:07 Dose: 10 mg Hydralazine HCl (Hydralazine 25 Mg Tablet) 25 mg PO QID [facility] Last Admin: 12/22/22 23:36 Dose: 25 mg Hydromorphone HCl (Hydromorphone 1 Mg/Ml Inj 1 Ml) 0.5 mg IVP Q4H PRN PRN Reason: PAIN Dextrose (D5w) 500 mls @ 100 mls/hr IV ONCE PRN; Protocol PRN Reason: Adult Acute Hypoglycemia Prot Piperacillin Sod/Tazobactam (Sod 3.375 gm/ Sodium Chloride) 50 mls @ 12.5 mls/hr IV Q12H [facility]; Protocol Last Infusion: 12/23/22 02:46 Dose: Infused Albumin Human (Albumin) 12.5 gm in 50 mls @ 60 mls/hr IV PRN PRN PRN Reason: Hypotension and/or symptomatic Sodium Chloride (Sodium Chloride 0.9%) 1,000 mls @ 0 mls/hr IV .Q0M PRN PRN Reason: hypotension or symptomatic Linezolid (Zyvox Premix) 600 mg in 300 mls @ 300 mls/hr IV Q12H [facility]; Protocol Last Infusion: 12/23/22 03:43 Dose: Infused Insulin Glargine (Insulin Glargine 100 Units/1 Ml) 20 unit SUBCUT BEDTIME [facility] Last Admin: 12/22/22 23:06 Dose: 20 unit Insulin Human Lispro (Insulin Lispro 100 Unit/1 Ml) 0 unit SUBCUT WM&BEDTIME [facility]; Protocol Last Admin: 12/22/22 22:11 Dose: 6 unit Loratadine (Loratadine 10 Mg Tablet) 10 mg PO DAILY PRN PRN Reason: Allergy Symptoms Metoprolol Tartrate (Metoprolol Tartrate 50 Mg Tablet) 150 mg PO BID [facility] Last Admin: 12/22/22 21:00 Dose: 150 mg Minoxidil (Minoxidil 10 Mg Tablet) 2.5 mg PO DAILY@06 [facility] Last Admin: 12/23/22 05:38 Dose: 2.5 mg Multivitamins (R-Zxmnmsq-Gqehzzw C Tablet) 1 each PO DAILY@06 [facility] Last Admin: 12/23/22 05:36 Dose: 1 each Non-Formulary Medication (Sorbitol) 30 ml PO BID PRN PRN Reason: constipation Non-Formulary Medication (Pd Icodextrin Pd-2 7.5% Icodextrin) 1 each XX Q6H [facility] Last Admin: 12/23/22 01:21 Dose: Not Given Non-Formulary Medication (Biktarvy ) 1 each PO DAILY [facility] Nystatin (Nystatin Cream 30 Gm) 1 applic TOPICAL BID [facility] Last Admin: 12/22/22 18:10 Dose: 1 applic Ondansetron HCl (Ondansetron 2 Mg/Ml Sdv 2 Ml) 4 mg IVP Q6H PRN PRN Reason: vomiting, or N/V if npo Last Admin: 12/21/22 05:46 Dose: 4 mg Pantoprazole Sodium (Pantoprazole 40 Mg Sdv) 40 mg IVP Q12H [facility] Last Admin: 12/23/22 04:40 Dose: 40 mg Tamsulosin HCl (Tamsulosin 0.4 Mg Capsule) 0.8 mg PO QPM [facility] Last Admin: 12/22/22 18:09 Dose: 0.8 mg Torsemide (Torsemide 20 Mg Tablet) 100 mg PO DAILY@0630 [facility] Last Admin: 12/23/22 06:38 Dose: 100 mg Triamcinolone Acetonide (Triamcinolone 0.1% Cream 15 Gm) 1 applic TOPICAL DAILY PRN PRN Reason: rash Vitamin D (Cholecalciferol (Vitamin D3) 5,000 Unit Tablet) 5,000 unit PO DAILY@06 [facility] Last Admin: 12/23/22 05:36 Dose: 5,000 unit Vitals/I&O/Wt Last Vital Signs Temp 98.1 F 12/23/22 08:00 Pulse 62 12/23/22 08:00 Resp 16 12/23/22 08:00 BP 163/75 12/23/22 08:00 Pulse Ox 98 12/23/22 08:00 O2 Del Method Room Air 12/23/22 07:15 O2 Flow Rate 2.5 12/22/22 16:00 12/22/22 12/23/22 12/23/22 22:59 06:59 14:59 Intake Total 540 / 830 710 / 1540 Balance 540 / 430 710 / 1140 Weight last 48 hrs Weight 173.2 kg Physical Exam Narrative: vs noted obese in bed, NARD heent- nc/at, eomi, anicteric neck supple lungs good air movement heart reg abd soft, tender left side, right sided peritoneal dialysis catheter ext 1-2+ leg edema neuro- a,a, o x 2+, no asterixis. improving Data 12/23/22 06:47 12/23/22 06:47 Micro: Microbiology 12/18/22 06:01 Blood Culture - Final Blood NO GROWTH AFTER 5 DAYS 12/18/22 05:58 Blood Culture - Final Blood NO GROWTH AFTER 5 DAYS A&P Assessment and plan (1) ESRD (end stage renal disease): Plan 1. End-stage renal disease: He was on peritoneal dialysis, concern for possible peritonitis given abdominal tenderness. But peritoneal effluent had been clear s Gram stain negative and Cultures negative -s/p cefazolin plus cefepime intraperitoneal . Negative PD fluid cultures- Discontinued abx - by Dr Bowers - pt was transitioned from PD to HD as he has anasarca and Q of uremia -s/p HD x 2 -repeat HD tomorrow via Rt IJ PC for 3.5 3 hours today -pt wants to keep PD catheter in for now, as not sure if he wants temporary or permanent HD vs PD 2. Leukocytosis: With left shift,-improving w/ diflucan and abx- Follow blood cultures and PD fluid cultures 3. Hgb good 4. hypokalemia :replete k 5. met alkalosis and resp acidosis are improving 6. DM control per medicine 7. HIV disease 8. htn- he is on many meds- will wean down medicines- remove more fluids on dialysis. can use ARB if needed Patient evaluated using audiovisual cart. examined via RN Time spent 30 + minutes Attestations Medical Necessity Statement*: esrd, ams, htn Time Spent in Patient Care: 16 - 35 minutes (>than 50% of time spent in counselling and/or direct pt care on unit) . Coding Level of Care Code Acute Code for Chg Fwd Diagnoses ESRD (end stage renal disease) N18.6
[2022-12-23] MEDS: insulin lispro 100 unit/1 mL SUBCUT ×4 (08:53→21:30)
[2022-12-23] MEDS: amlodipine 5 mg Tablet 10 MG PO (08:54)
[2022-12-23] MEDS: calcium acetate 667 mg Capsule PO ×3 (08:54→17:49)
[2022-12-23] MEDS: hyDRALAzine 25 mg Tablet PO ×4 (08:54→20:28)
[2022-12-23] MEDS: metoprolol tartrate 50 mg Tablet 150 MG PO ×2 (08:54→17:48)
[2022-12-23] MEDS: cloNIDine 0.1 mg Tablet PO (08:54)
[2022-12-23] MEDS: fluconazole 100 mg Tablet PO (08:54)
[2022-12-23] MEDS: heparin 5,000 unit/mL INJ 1 mL 5000 UNIT SUBCUT ×2 (08:55→20:28)
[2022-12-23] MEDS: piperacillin-tazobactam 3.375 GM in sodium chloride 0.9% (plus) 50 ML IV ×2 (08:55→21:32)
[2022-12-23] MEDS: nystatin cream 30 gm 1 APPLIC TOPICAL ×2 (08:56→17:53)
--- NOTE | 2022-12-23 12:17 | PC.SOCIAL ---
IMM Update pg 2 of IMM updated and reviewed w/ patient. Copy provided and copy dated, initialed and placed in chart.
[2022-12-23] MEDS: heparin, porcine 1,000 unit/mL INJ 10 mL HE (13:49)
[2022-12-23] MEDS: tamsulosin 0.4 mg Capsule 0.8 MG PO (17:48)
--- NOTE | 2022-12-23 17:54 | PM.PN ---
Subjective Subjective: Patient feels much better this morning. Denies any nausea or vomiting. Passing significant flatus and having diarrhea Vitals/I&O/Wt Last Vital Signs Temp 98.1 F 12/23/22 08:00 Pulse 62 12/23/22 08:00 Resp 16 12/23/22 08:00 BP 163/75 12/23/22 08:54 Pulse Ox 98 12/23/22 08:00 O2 Del Method Room Air 12/23/22 07:15 O2 Flow Rate 2.5 12/22/22 16:00 12/23/22 12/23/22 12/23/22 06:59 14:59 22:59 Intake Total 710 / 1540 480 / 480 Balance 710 / 1140 480 / 480 Weight last 48 hrs Weight 381 lb 13.45 oz Physical Exam Narrative: General: No acute distress, awake alert and oriented x3 Abdomen: Soft, nondistended, mild diffuse tenderness to palpation, no guarding rebound or masses Data 12/23/22 06:47 12/23/22 06:47 Micro: Microbiology 12/18/22 06:01 Blood Culture - Final Blood NO GROWTH AFTER 5 DAYS 12/18/22 05:58 Blood Culture - Final Blood NO GROWTH AFTER 5 DAYS A&P Assessment and plan (1) Leukocytosis: (2) Nausea and vomiting: (3) ESRD (end stage renal disease): Plan Postoperative day #2 status post right internal jugular permacath placement Renal diet Medical management per hospitalist I am available for removal of peritoneal dialysis catheter and/or replacement as determined by nephrology Attestations Medical Necessity Statement*: Per primary Coding Level of Care Code Acute Code for Chg Fwd Diagnoses Leukocytosis D72.829 Nausea and vomiting R11.2 ESRD (end stage renal disease) N18.6
[2022-12-23] MEDS: insulin glargine 100 units/1 mL 20 UNIT SUBCUT (20:28)
--- NOTE | 2022-12-23 21:04 | P.PN_ITS ---
Subjective Subjective: Overall doing better today, undergoing hemodialysis. Denies any nausea or vomiting. No abdominal pain. Vitals/I&O/Wt Last Vital Signs Temp 98.1 F 12/23/22 20:00 Pulse 59 L 12/23/22 20:00 Resp 16 12/23/22 20:00 BP 152/72 12/23/22 20:00 Pulse Ox 92 12/23/22 20:00 O2 Del Method Room Air 12/23/22 20:00 O2 Flow Rate 2.5 12/22/22 16:00 12/23/22 12/23/22 12/23/22 06:59 14:59 22:59 Intake Total 710 / 1540 480 / 480 260 / 740 Balance 710 / 1140 480 / 480 260 / 740 Physical Exam Const: COMMON NORMALS: patient oriented x3 and alert GENERAL APPEARANCE: cooperative NUTRITIONAL APPEARANCE: obese ORIENTATION/CONSCIOUSNESS: Yes awake HENMT: COMMON NORMALS: oropharynx normal Neck/C-Spine: COMMON NORMALS: no JVD Resp: COMMON NORMALS: normal respiratory effort and clear to auscultation bilaterally AUSCULTATION: clear to auscultation bilaterally Cardio: COMMON NORMALS: no JVD, regular rhythm, S1 normal heart sound present, S2 normal heart sound present and No murmurs present (Cardio) RHYTHM: regular rhythm HEART SOUNDS: S1 normal heart sound present and S2 normal heart sound present GI: COMMON NORMALS: Normal to inspection, nondistended, normoactive bowel sounds present, Soft to palpation and non-tender PALPATION: Yes Soft to palpation Extremity: COMMON NORMALS: no joint enlargement and no pedal edema NARR ATIVE EXTREMITY EXAM: Extensive lymphedema bilateral lower extremities Neuro: COMMON NORMALS: patient oriented x3 and moves all extremities SENSORIUM/ORIENTATION: Yes alert Skin: COMMON NORMALS: no rashes or lesions noted GENERAL SKIN EXAM: no rashes or lesions noted Data 12/23/22 06:47 12/23/22 06:47 Micro: Microbiology 12/18/22 06:01 Blood Culture - Final Blood NO GROWTH AFTER 5 DAYS 12/18/22 05:58 Blood Culture - Final Blood NO GROWTH AFTER 5 DAYS A&P Assessment and plan (1) Leukocytosis: Discussed with him continues antibiotic therapy after discharge, no further i ntraperitoneal infusions as per discussion with nephrology, but will continue with systemic antibiotics. Cipro, linezolid. Will need to make sure has antibiotics available to be able to go home. Discharge tentatively planned for the morning. Leukocytosis continues to resolve. No further intraperitoneal catheter antibiotics. Continue systemic antibiotic. Possible peritonitis. Reviewing peritoneal fluid culture, no growth on final culture. Blood culture preliminary preliminary without growth. Continue empiric antibiotic coverage with Zosyn, linezolid, and intracatheter antibiotics. Nephrology also added Diflucan. Some lower extremity ulcers, significant edema. Echo appreciated, normal EF, trace valvular abnormalities. With vomiting, possibility of aspiration. MRSA PCR noted negative. CT demonstrated some free air. This may be secondary to peritoneal dialysis catheter. He has no clinical evidence of GI bleeding. Secondary to recurrent vomiting, NG was placed yesterday. He has had a fair amount of output from this. Surgery is following as well. (2) CKD (chronic kidney disease): Undergoing hemodialysis today, outpatient time slot for dialysis now set for . Outpatient dialysis being arranged, he will be on TTS schedule. 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 Discussed with nephrology. Follow-up chemistry. (3) Nausea and vomiting: Resolved. Surgery documentation appreciated. NGT removed. Trial of clear liquids. He is feeling better with improvement in uremia with dialysis. (4) Lymphedema: Patient is with significant lymphedema to his lower extremities. Venous duplex negative for DVT Unremarkable echocardiogram. One in April showed diastolic dysfunction but was otherwise unremarkable States arrangements pending on outpatient side for follow-up with lymphedema specialist. (5) Diabetes: Continue Lantus 20 units. Continue sliding scale. Change diet to consistent carbohydrate. (6) HIV disease: Resume Biktarvy. (7) Fall: This may be vasovagal as it happened with him urinating. Could be related to infection. Continue telemetry, Echocardiogram unremarkable Plan Hypertension, continue home medications. Blood pressure still elevated. Increase amlodipine. Tinea, groins. Nystatin cream twice daily Multiple other medical problems as delineated in his past medical history Full code Heparin for DVT prophylaxis PT consultation I have visited extensively with surgery yesterday prior to the consult regarding their opinion, and following their evaluation as well. Attestations Medical Necessity Statement*: Continue admission for assessment management of possible peritonitis, additional dialysis today anticipation for transition to outpatient hemodialysis. Diagnoses Leukocytosis D72.829 CKD (chronic kidney disease) N18.9 Nausea and vomiting R11.2 Lymphedema I89.0 Diabetes E11.9 HIV disease B20 Fall W19.XXXA
[2022-12-24] VITALS (7 sets, daily range): BP systolic 133–176; BP diastolic 66–76; PULSE 60–66; RESP 12–16; TEMP 36.5–36.7; O2SAT 93–98
[2022-12-24] MEDS: pantoprazole 40 mg SDV IVP (05:20)
[2022-12-24 05:36] LABS: Alanine Aminotransferase 27 U/L (0-41); Alkaline Phosphatase 68 U/L (40-130); Anion Gap 14.4 (5-19); Aspartate Amino Transferase 28 U/L (0-40); Blood Urea Nitrogen 38 mg/dL (6-20); Calcium 8.1 mg/dL (8.5-10.5); Carbon Dioxide 28 mmol/L (22-29); Chloride 97 mmol/L (98-107); Globulin 3.1 g/dL (1.3-4.6); Glomerular Filtration Rate 19.4 mL/min (90-130); Glucose 132 mg/dL (65-115); Magnesium 1.9 mg/dL (1.7-2.3); Osmolality Calculated 293 mOsm/kg (285-295); Phosphorus 3.2 mg/dL (2.5-4.5); Potassium 3.4 mmol/L (3.5-5.1); Sodium 136 mmol/L (136-145); Total Protein 6.1 g/dL (6.6-8.7)
[2022-12-24] MEDS: minoxidil 10 mg Tablet 2.5 MG PO (06:03)
[2022-12-24] MEDS: TORSEmide 20 mg Tablet 100 MG PO (06:04)
[2022-12-24] MEDS: b-complex-vitamin c Tablet 1 EACH PO (06:04)
[2022-12-24] MEDS: cholecalciferol (vitamin D3) 5,000 unit Tablet 5000 UNIT PO (06:04)
[2022-12-24] MEDS: allopurinol 300 mg Tablet PO (06:04)
--- NOTE | 2022-12-24 06:56 | P.PN_ITS ---
Subjective Subjective: feels better with hemodialysis. dec edema. improved MA. no n/v/f/c/anderson/d Medications: Reviewed: Yes Medication Review Details: Current Medications Acetaminophen (Acetaminophen 325 Mg Tablet) 650 mg PO Q6H PRN PRN Reason: Mild/Mod Pain Or Temp >/= 101 Allopurinol (Allopurinol 300 Mg Tablet) 300 mg PO DAILY@06 [facility] Last Admin: 12/24/22 06:04 Dose: 300 mg Amlodipine Besylate (Amlodipine 5 Mg Tablet) 10 mg PO DAILY [facility] Last Admin: 12/23/22 08:54 Dose: 10 mg Calcium Acetate (Calcium Acetate 667 Mg Capsule) 667 mg PO TIDWM [facility] Last Admin: 12/23/22 17:49 Dose: 667 mg Dextrose (Dextrose 50% Syringe 50 Ml) 50 ml IVP PRN PRN; Protocol PRN Reason: hypoglycemia protocol Dextrose (Dextrose 50% Syringe 50 Ml) 25 ml IVP ONCE PRN; Protocol PRN Reason: hypoglycemia protocol Docusate Sodium (Docusate Sodium 100 Mg Capsule) 100 mg PO BID PRN PRN Reason: Constipation Fluconazole (Fluconazole 100 Mg Tablet) 100 mg PO DAILY [facility] Last Admin: 12/23/22 08:54 Dose: 100 mg Gentamicin Sulfate (Gentamicin 0.1% Cream 15 Gm) 0 applic TOPICAL DAILY PRN PRN Reason: EXIT SITE DIRECTED Glucagon (Glucagon 1 Mg/Ml Inj 1 Ml) 1 mg IM ONCE PRN; Protocol PRN Reason: Adult Acute Hypoglycemia Prot. Heparin Sodium (Porcine) (Heparin 5,000 Unit/Ml Inj 1 Ml) 5,000 unit SUBCUT Q 12H [facility] Last Admin: 12/23/22 20:28 Dose: 5,000 unit Hydralazine HCl (Hydralazine 20 Mg/Ml Inj 1 Ml) 10 mg IVP Q4H PRN PRN Reason: HYPERTENSION Last Admin: 12/20/22 05:07 Dose: 10 mg Hydralazine HCl (Hydralazine 25 Mg Tablet) 25 mg PO QID [facility] Last Admin: 12/23/22 20:28 Dose: 25 mg Hydromorphone HCl (Hydromorphone 1 Mg/Ml Inj 1 Ml) 0.5 mg IVP Q4H PRN PRN Reason: PAIN Dextrose (D5w) 500 mls @ 100 mls/hr IV ONCE PRN; Protocol PRN Reason: Adult Acute Hypoglycemia Prot Piperacillin Sod/Tazobactam (Sod 3.375 gm/ Sodium Chloride) 50 mls @ 12.5 mls/hr IV Q12H [facility]; Protocol Last Infusion: 12/24/22 01:45 Dose: Infused Albumin Human (Albumin) 12.5 gm in 50 mls @ 60 mls/hr IV PRN PRN PRN Reason: Hypotension and/or symptomatic Sodium Chloride (Sodium Chloride 0.9%) 1,000 mls @ 0 mls/hr IV .Q0M PRN PRN Reason: hypotension or symptomatic Linezolid (Zyvox Premix) 600 mg in 300 mls @ 300 mls/hr IV Q12H [facility]; Protocol Last Infusion: 12/24/22 00:19 Dose: Infused Insulin Glargine (Insulin Glargine 100 Units/1 Ml) 20 unit SUBCUT BEDTIME [facility] Last Admin: 12/23/22 20:28 Dose: 20 unit Insulin Human Lispro (Insulin Lispro 100 Unit/1 Ml) 0 unit SUBCUT WM&BEDTIME [facility]; Protocol Last Admin: 12/23/22 21:30 Dose: 8 unit Loratadine (Loratadine 10 Mg Tablet) 10 mg PO DAILY PRN PRN Reason: Allergy Symptoms Metoprolol Tartrate (Metoprolol Tartrate 50 Mg Tablet) 150 mg PO BID [facility] Last Admin: 12/23/22 17:48 Dose: 150 mg Minoxidil (Minoxidil 10 Mg Tablet) 2.5 mg PO DAILY@06 [facility] Last Admin: 12/24/22 06:03 Dose: 2.5 mg Multivitamins (W-Mroyquh-Itvuemg C Tablet) 1 each PO DAILY@06 [facility] Last Admin: 12/24/22 06:04 Dose: 1 each Non-Formulary Medication (Sorbitol) 30 ml PO BID PRN PRN Reason: constipation Non-Formulary Medication (Pd Icodextrin Pd-2 7.5% Icodextrin) 1 each XX Q6H [facility] Last Admin: 12/24/22 01:15 Dose: Not Given Non-Formulary Medication (Biktarvy ) 1 each PO DAILY [facility] Last Admin: 12/23/22 21:27 Dose: 1 each Nystatin (Nystatin Cream 30 Gm) 1 applic TOPICAL BID [facility] Last Admin: 12/23/22 17:53 Dose: 1 applic Ondansetron HCl (Ondansetron 2 Mg/Ml Sdv 2 Ml) 4 mg IVP Q6H PRN PRN Reason: vomiting, or N/V if npo Last Admin: 12/21/22 05:46 Dose: 4 mg Pantoprazole Sodium (Pantoprazole 40 Mg Sdv) 40 mg IVP Q12H [facility] Last Admin: 12/24/22 05:20 Dose: 40 mg Tamsulosin HCl (Tamsulosin 0.4 Mg Capsule) 0.8 mg PO QPM [facility] Last Admin: 12/23/22 17:48 Dose: 0.8 mg Torsemide (Torsemide 20 Mg Tablet) 100 mg PO DAILY@0630 [facility] Last Admin: 12/24/22 06:04 Dose: 100 mg Triamcinolone Acetonide (Triamcinolone 0.1% Cream 15 Gm) 1 applic TOPICAL DAILY PRN PRN Reason: rash Vitamin D (Cholecalciferol (Vitamin D3) 5,000 Unit Tablet) 5,000 unit PO DAILY@06 [facility] Last Admin: 12/24/22 06:04 Dose: 5,000 unit Vitals/I&O/Wt Last Vital Signs Temp 98.1 F 12/24/22 03:58 Pulse 66 12/24/22 06:00 Resp 16 12/24/22 03:58 BP 133/66 12/24/22 03:58 Pulse Ox 97 12/24/22 03:58 O2 Del Method Nasal Cannula 12/24/22 03:58 O2 Flow Rate 2.5 12/22/22 16:00 12/23/22 12/23/22 12/24/22 14:59 22:59 06:59 Intake Total 480 / 480 930 / 1410 350 / 1760 Output Total 3513 / 3513 Balance 480 / 480 -2583 / -2103 350 / -1753 Weight last 48 hrs Weight 171.5 kg Weight 172.6 kg Physical Exam Narrative: vs noted obese in bed, NARD heent- nc/at, eomi, anicteric neck supple lungs good air movement heart reg abd soft, tender left side, right sided peritoneal dialysis catheter ext 1-2+ leg edema b/l neuro- a,a, o x 3, no asterixis. improving Data 12/23/22 06:47 12/24/22 05:02 Micro: Microbiology 12/18/22 06:01 Blood Culture - Final Blood NO GROWTH AFTER 5 DAYS 12/18/22 05:58 Blood Culture - Final Blood NO GROWTH AFTER 5 DAYS A&P Assessment and plan (1) ESRD (end stage renal disease): Plan 1. End-stage renal disease: He was on peritoneal dialysis, concern for possible peritonitis given abdominal tenderness. But peritoneal effluent had been clear s Gram stain negative and Cultures negative -s/p cefazolin plus cefepime intraperitoneal . Negative PD fluid cultures- Discontinued abx - by Dr Bowers - pt was transitioned from PD to HD as he has anasarca and Q of uremia -s/p HD x 3 -repeat HD tomorrow via Rt IJ PC for 3.5 3 hours today -pt wants to keep PD catheter in for now, as not sure if he wants temporary or permanent HD vs PD -replace k 2. Leukocytosis: With left shift,-improving w/ diflucan and abx- Follow blood cultures and PD fluid cultures 3. Hgb good 4. hypokalemia :replete k 5. met alkalosis and resp acidosis are improving 6. DM control per medicine 7. HIV disease 8. htn- he is on many meds- will continue to wean down medicines- remove more fluids on dialysis. can use ARB if needed Patient evaluated using audiovisual cart. examined via RN Time spent 25 + minutes Attestations Medical Necessity Statement*: d/c per medicine. pt has an outpt fresiunus dialysis slot for tomorrow. Time Spent in Patient Care: 16 - 35 minutes (>than 50% of time spent in counselling and/or direct pt care on unit) . Coding Level of Care Code Acute Code for Chg Fwd Diagnoses ESRD (end stage renal disease) N18.6
[2022-12-24 07:06] LABS: Glucose Point of Care 235 mg/dL (70-110)
[2022-12-24 07:06] LABS: Glucose Point of Care 240 mg/dL (70-110)
[2022-12-24 07:06] LABS: Glucose Point of Care 129 mg/dL (70-110)
[2022-12-24 07:06] LABS: Glucose Point of Care 252 mg/dL (70-110)
[2022-12-24 07:06] LABS: Glucose Point of Care 193 mg/dL (70-110)
[2022-12-24 07:06] LABS: Glucose Point of Care 185 mg/dL (70-110)
[2022-12-24 07:06] LABS: Glucose Point of Care 263 mg/dL (70-110)
--- NOTE | 2022-12-24 07:25 | PC.NURSE ---
documented at [id number]
[2022-12-24] MEDS: calcium acetate 667 mg Capsule PO (07:27)
[2022-12-24] MEDS: metoprolol tartrate 50 mg Tablet 150 MG PO (07:27)
[2022-12-24] MEDS: amlodipine 5 mg Tablet 10 MG PO (07:27)
[2022-12-24] MEDS: heparin 5,000 unit/mL INJ 1 mL 5000 UNIT SUBCUT (07:28)
[2022-12-24] MEDS: fluconazole 100 mg Tablet PO (07:28)
[2022-12-24] MEDS: piperacillin-tazobactam 3.375 GM in sodium chloride 0.9% (plus) 50 ML IV (07:30)
[2022-12-24] MEDS: nystatin cream 30 gm 1 APPLIC TOPICAL (07:32)
[2022-12-24] MEDS: linezolid premix 600 MG/300 ML PREMIX 300 MG IV (07:58)
[2022-12-24] MEDS: hyDRALAzine 25 mg Tablet PO (07:58)
[2022-12-24 10:23] LABS: Glucose Point of Care 302 mg/dL (70-110)
--- NOTE | 2022-12-24 11:16 | P.DS_ITS ---
Discharge Providers Date of Admission: 12/18/22 08:21 Date of Discharge: December 24, 2022 Attending Provider at Admission: Leon Madsen MD Attending Provider at Discharge: Franky Pizarro Primary Care Provider: John Hernandez DO Diagnoses at Discharge Discharge Diagnosis (1) ESRD (end stage renal disease): Status: Acute Reason for Visit Reason for Visit: FALL Hospital Course Hospital Course Pleasant 57-year-old gentleman with ESRD previously on peritoneal dialysis, HIV, DM 2, HTN, HLD, lymphedema, was admitted after a fall with a hit to his head, no head injuries found on imaging, but also felt he will with fever, vomiting, nausea and abdominal pain. Reported intermittent abdominal fullness and tenderness since he started peritoneal dialysis. With noted significant elevation of WBC concerning for infection. COVID/flu negative. Possible pneumonia on chest x-ray. Peritoneal dialysis fluid. To be equivocal with WBC 82, 28% PMN, 72% mononuclear, negative Gram stain. CT abdomen pelvis showed hyperdense fluid in the left pelvis concerning for blood products. PD catheter coiled in the pelvis. Ascites and splenomegaly. Clinically no evidence of bleeding, possibly finding secondary to edema. Contrast in the stomach thought to be likely secondary to oral contrast that he had received initially but cannot be completed due to vomiting. He had NGT placed, placed on bowel rest, seen by surgery secondary to intraperitoneal free air, although this is not unexpected with peritoneal dialysis catheter. Not thought to have had any perforated viscus. He was treated with Zosyn and linezolid for possible peritonitis, possibility of pneumonia. Continue to have nausea and vomiting, and with concern that peritoneal dialysis was insufficient, with difficulty getting fluid back with PD for quite some time, tunneled dialysis catheter was placed, he underwent 2 sessions of dialysis with resolution of nausea vomiting and significant improvement in volume status, lower extremity edema. Receiving nystatin for tinea. Is set to follow-up with lymphedema specialist. Biktarvy initially was held while in the hospital, subsequently resumed once symptoms improved. He is otherwise doing much better, and feels ready to return return home. He will complete ciprofloxacin linezolid course after discharge. Potential dialysis catheter is left in pending additional discussion of him with his accounting/finance tutor and consideration of future dialysis strategies. His outpatient hemodialysis time obtained for tomorrow on TTS schedule. Physical Exam Narrative: Up in chair. In good spirits, pleasant conversant. Const: COMMON NORMALS: patient oriented x3 and alert GENERAL APPEARANCE: cooperative NUTRITIONAL APPEARANCE: obese ORIENTATION/CONSCIOUSNESS: Yes awake HENMT: COMMON NORMALS: oropharynx normal Neck/C-Spine: COMMON NORMALS: no JVD Resp: COMMON NORMALS: normal respiratory effort and clear to auscultation bilaterally AUSCULTATION: clear to auscultation bilaterally Cardio: COMMON NORMALS: no JVD, regular rhythm, S1 normal heart sound present, S2 normal heart sound present and No murmurs present (Cardio) RHYTHM: regular rhythm HEART SOUNDS: S1 normal heart sound present and S2 normal heart sound present GI: COMMON NORMALS: Normal to inspection, nondistended, normoactive bowel sounds present, Soft to palpation and non-tender PALPATION: Yes Soft to palpation Extremity: COMMON NORMALS: no joint enlargement and no pedal edema NARRATIVE EXTREMITY EXAM: Improvement in lymphedema bilateral lower extremities Neuro: COMMON NORMALS: patient oriented x3 and moves all extremities SENSORIUM/ORIENTATION: Yes alert Skin: COMMON NORMALS: no rashes or lesions noted GENERAL SKIN EXAM: no rashes or lesions noted Discharge Data Studies Completed and Pending Completed Studies During Hospitalization Category Date Time Status CT abdomen pelvis w con* [id number] Routine Cat Scan 12/18/22 15:[address] abdomen pelvis wo con [id number] Stat Cat Scan 12/17/22 23:[address] head wo con* [id number] Stat Cat Scan 12/17/22 21:18 Completed CXRP [XR chest 1V portable [id number]] Routine Exams 12/21/22 14:01 Completed XR abdomen 1V* [id number] Routine Exams 12/19/22 07:22 Completed XR chest 1V portable [id number] Stat Exams 12/17/22 21:18 Completed XR foot LT 2V 25117 Routine Exams 12/18/22 08:26 [place] [id number] Routine Ultrasound 12/18/22 08:21 Completed CV. echo wo/w contrast [id number] Routine Ultrasound 12/18/22 08:54 Completed Pending at discharge Category Date Time Status Comprehensive Metabolic Panel AM LABS Lab 12/25/22 04:00 Ordered Magnesium AM LABS Lab 12/25/22 04:00 Ordered Phosphorus AM LABS Lab 12/25/22 04:00 Ordered Radiology Impressions Head CT 12/17/22 21:18 IMPRESSION: No acute intracranial abnormality. 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 Marked dorsal soft tissue edema. Systemic causes versus cellulitis considered. Abdomen/Pelvis CT 12/18/22 15:14 IMPRESSION: 1. Small amount of free air in the upper abdomen, may be secondary to the presence of a dialysis catheter, however, other considerations include a perforated viscus among other etiologies, however, no source of potential perforation is seen. 2. Layering hyperdense material in the stomach, somewhat concerning for contrast extravasation from gastrointestinal bleeding, please correlate clinically as no definite active contrast extravasation is seen. 3. Left adrenal 26 mm partially calcified likely benign nodule. 4. Possible cirrhotic liver. 5. Subcutaneous edema about the abdomen and pelvis left greater than right. 6. Hepatic steatosis. 7. Small to moderate ascites in the abdomen pelvis. ADDENDUM: 12/18/22 [id number] THIS REPORT CONTAINS FINDINGS THAT MAY BE CRITICAL TO PATIENT CARE. The findings were verbally communicated via telephone conference with LEON MADSEN at 4:47 PM CDT on 12/18/2022. The findings were acknowledged and understood. We discussed an attempt was made to give the patient oral contrast which was incomplete. In light of this, the hyperdense material in the stomach may reflect a small amount of ingested oral contrast. Abdomen X-Ray 12/19/22 07:22 IMPRESSION: Nonspecific bowel pattern. C-Arm Fluoroscopy 12/21/22 13:15 Impression: Insertion right dialysis catheter. Chest X-Ray 12/21/22 14:01 IMPRESSION: Large caliber central venous access or dialysis catheter on the right appears in good position as noted above. Laboratory Results WBC 9.8 10^3/uL (4.0-10.0) 12/23/22 06:47 RBC 4.54 10^6/uL (4.1-5.3) 12/23/22 06:47 Hgb 12.1 g/dL (11.7-16.6) 12/23/22 06:47 Hct 39.6 % (42.0-52.0) L 12/23/22 06:47 MCV 87.2 fl (80-94) 12/23/22 06:47 MCH 26.7 pg (28.0-34.0) L 12/23/22 06:47 MCHC 30.6 g/dL (30.0-36.0) 12/23/22 06:47 RDW 16.0 % (12.1-15.1) H 12/23/22 06:47 Plt Count 201 10^3/cmm (130-400) 12/23/22 06:47 MPV 9.5 fL (7.4-10.4) 12/23/22 06:47 Neut % (Auto) 70.0 % 12/23/22 06:47 Lymph % (Auto) 20.3 % 12/23/22 06:47 [place] % (Auto) 5.7 % 12/23/22 06:47 Eos % (Auto) 2.3 % 12/23/22 06:47 Baso % (Auto) 0.5 % 12/23/22 06:47 Neut # (Auto) 6.87 10^3/uL (1.8-7.7) 12/23/22 06:47 Lymph # (Auto) 2.0 10^3/uL (0.8-4.8) 12/23/22 06:47 [place] # (Auto) 0.6 10^3/uL (0.2-0.9) 12/23/22 06:47 Eos # (Auto) 0.2 10^3/uL (0.0-0.8) 12/23/22 06:47 Baso # (Auto) 0.1 10^3/uL (0.0-0.1) 12/23/22 06:47 Nucleated RBC % (auto) 0 % 12/23/22 06:47 Nucleated RBCs # 0.0 /100WBC 12/23/22 06:47 ESR 51 mm/hr (0-10) H 12/17/22 22:17 Specimen Type Arterial 12/22/22 11:24 Sample Site Radial, right 12/22/22 11:24 ABG pH 7.43 (7.35-7.45) 12/22/22 11:24 ABG pCO2 56.0 mmHg (35-45) H 12/22/22 11:24 ABG pO2 85.9 mmHg (80.0-100.0) 12/22/22 11:24 ABG HCO3 37.3 mmol/L (22-26) H 12/22/22 11:24 ABG O2 Saturation 97.0 12/22/22 11:24 ABG Base Excess 11.0 mmol/L (-2.0-2.0) H 12/22/22 11:24 Jh Test Pos 12/22/22 11:24 A-a O2 Gradient Not Reportable 12/22/22 11:24 Hematocrit 39.7 % (42-52) L 12/22/22 11:24 Hgb O2 Saturation 96.2 % (95-100) 12/22/22 11:24 Carboxyhemoglobin 1.2 %THgb (0.4-20.1) 12/22/22 11:24 Methemoglobin < 0.0 % (0.4-1.5) L 12/22/22 11:24 Total Hemoglobin 13.0 g/dL (14-18) L 12/22/22 11:24 Sodium 141.0 mmol/L (131-143) 12/22/22 11:24 Potassium 3.5 mmol/L (3.5-5.0) 12/22/22 11:24 Glucose 160.0 mg/dL (70-115) H 12/22/22 11:24 Ionized Calcium 1.1 mmol/L (1.1-1.4) 12/22/22 11:24 O2 Delivery Device Room air 12/22/22 11:24 FiO2 21.0 % 12/22/22 11:24 Learning Support Resource Room Teacher ID [email or web address] 12/22/22 11:24 Sodium 136 mmol/L (136-145) 12/24/22 05:02 Potassium 3.4 mmol/L (3.5-5.1) L 12/24/22 05:02 Chloride 97 mmol/L (98-107) L 12/24/22 05:02 Carbon Dioxide 28 mmol/L (22-29) 12/24/22 05:02 Anion Gap 14.4 (5-19) 12/24/22 05:02 BUN 38 mg/dL (6-20) H 12/24/22 05:02 Creatinine 3.3 mg/dL (0.7-1.2) H 12/24/22 05:02 GFR Calculation 19.4 mL/min (90-130) L 12/24/22 05:02 Glucose 132 mg/dL (65-115) H 12/24/22 05:02 POC Glucose 302 mg/dL (70-110) H 12/24/22 10:20 Calculated Osmolality 293 mOsm/kg (285-295) 12/24/22 05:02 Lactate 1.0 mmol/L (0.5-2.2) 12/18/22 12:00 Calcium 8.1 mg/dL (8.5-10.5) L 12/24/22 05:02 Phosphorus 3.2 mg/dL (2.5-4.5) 12/24/22 05:02 Magnesium 1.9 mg/dL (1.7-2.3) 12/24/22 05:02 Total Bilirubin 1.0 mg/dL (0.15-1.2) 12/24/22 05:02 AST 28 U/L (0-40) 12/24/22 05:02 ALT 27 U/L (0-41) 12/24/22 05:02 Alkaline Phosphatase 68 U/L (40-130) 12/24/22 05:02 C-Reactive Protein 85.6 mg/L (0.0-4.9) H 12/17/22 22:17 Total Protein 6.1 g/dL (6.6-8.7) L 12/24/22 05:02 Albumin 3.0 g/dL (3.5-5.2) L 12/24/22 05:02 Globulin 3.1 g/dL (1.3-4.6) 12/24/22 05:02 Lipase 68 U/L (13-60) H 12/18/22 08:04 Procalcitonin 0.33 ng/mL (0-0.5) 12/17/22 22:17 Urine Color Yellow (Yellow) 12/18/22 00:35 Urine Appearance Clear (CLEAR) 12/18/22 00:35 Urine pH 5 (5-7) 12/18/22 00:35 Ur Specific [place] 1.010 (1.005-1.030) 12/18/22 00:35 Urine Protein Neg (Negative) 12/18/22 00:35 Urine Glucose (UA) 1+ (Normal) H 12/18/22 00:35 Urine Ketones Negative (Negative) 12/18/22 00:35 Urine Blood Neg (Negative) 12/18/22 00:35 Urine Nitrate Negative (Negative) 12/18/22 00:35 Urine Bilirubin Neg (Negative) 12/18/22 00:35 Urine Urobilinogen Norm mg/dL (Negative) 12/18/22 00:35 Ur Leukocyte Esterase Negative (Negative) 12/18/22 00:35 Peritoneal Color Pale yellow (Pale Yellow) 12/18/22 03:05 Peritoneal Appearance Hazy (Clear) 12/18/22 03:05 Peritoneal pH 9.0 12/18/22 03:05 Peritoneal WBC 82 /uL 12/18/22 03:05 Peritoneal RBC 0 10^3/uL 12/18/22 03:05 Periton Mononu # Auto 0.059 10^3/uL 12/18/22 03:05 Mononuclear WBCs % 72.000 % 12/18/22 03:05 Polynuclear WBCs % 28.000 % 12/18/22 03:05 Perit Polynuc WBCs # 0.023 10^3/uL 12/18/22 03:05 Peritoneal Tot Protein 0.4 g/dL 12/18/22 03:05 Peritoneal Albumin 0.3 g/dL 12/18/22 03:05 Peritoneal LDH 14.0 U/L 12/18/22 03:05 Peritoneal Glucose 162.0 mg/dL 12/18/22 03:05 Coronavirus 229E (PCR) Not detected (NOT DETECT) 12/17/22 21:41 Hepatitis A IgM Ab Non-reactive (Nonreactive) 12/21/22 05:25 Hep Bs Antigen Non-reactive (Nonreactive) 12/22/22 05:24 Hep Bs Antibody > 1000.0 (11.5-1000) H 12/22/22 05:24 Hep B Core Total Ab Non-reactive (Nonreactive) 12/21/22 05:25 Hepatitis C Antibody Non-reactive (Nonreactive) 12/22/22 05:24 Influenza Type A Ag negative (Negative) 12/17/22 21:41 Influenza Type B Ag negative (Negative) 12/17/22 21:41 SARS-CoV-2 (PCR) Not detected (NOT DETECT) 12/17/22 21:41 Vitals Last Vital Signs Temp 97.9 F 12/24/22 07:14 Pulse 64 12/24/22 07:14 Resp 12 12/24/22 07:14 BP 176/72 12/24/22 07:14 Pulse Ox 94 12/24/22 08:55 O2 Del Method Room Air 12/24/22 08:55 O2 Flow Rate 2.5 12/22/22 16:00 Discharge Plan Discharge Patient Disposition: Home Condition: Stable Prescriptions: New linezolid 600 mg tablet 600 mg PO BID 10 Days Qty: 20 0RF nystatin 100,000 unit/gram Cream 1 applic topical BID 14 Days Qty: 30 0RF fluconazole 100 mg Tablet 100 mg PO DAILY Qty: 14 0RF ciprofloxacin HCl 500 mg tablet 500 mg PO BID Qty: 20 0RF Continued cholecalciferol (vitamin D3) 125 mcg (5,000 unit) capsule 125 mcg PO DAILY@06 Levemir FlexTouch U-100 Insuln 100 unit/mL (3 mL) insulin pen See Rx Instructions .ROUTE .COMPLEX Qty: 75 11RF Rx Instructions: 80 units subcutaneously every morning and 160 units in the evening minoxidil 10 mg tablet 5 mg PO DAILY@06 loratadine 10 mg tablet 10 mg PO DAILY PRN (Reason: Allergy Symptoms) allopurinol 300 mg tablet 300 mg PO DAILY@06 clonidine HCl 0.1 mg tablet 0.1 mg PO TID@05,12,18 metolazone 5 mg tablet 5 mg PO DAILY@06 metoprolol tartrate 100 mg tablet 150 mg PO BID sorbitol 70 % solution 30 ml PO BID PRN (Reason: constipation) torsemide 100 mg tablet 100 mg PO DAILY@0630 triamcinolone acetonide 0.1 % cream 1 applic topical DAILY PRN (Reason: rash) tamsulosin 0.4 mg capsule 0.8 mg PO QPM Qty: 180 3RF (DME) pen needle, diabetic [BD Maylin 2nd Gen Pen Needle] 32 gauge x 5/32 needle See Rx Instructions .ROUTE .MEDSUPPLY Qty: 100 11RF Rx Instructions: As directed bid hydralazine 50 mg tablet 50 mg PO QID Rx Instructions: @05,12,18,23 Biktarvy 50-200-25 mg tablet 1 tab PO BEDTIME gentamicin 0.1 % cream See Rx Instructions .ROUTE .COMPLEX Rx Instructions: apply to exit site daily as directed calcium acetate(phosphat bind) 667 mg capsule 667 mg PO TIDWM potassium chloride 20 mEq tablet extended release 20 meq PO BID RenaPlex-D 800 mcg-12.5 mg -2,000 unit tablet 1 tab PO DAILY@06 Rx Instructions: (ON DIALYSIS DAYS, TAKE AFTER DIALYSIS TREATMENT) docusate sodium 100 mg capsule 100 mg PO BID PRN (Reason: Constipation) heparin (porcine) 1,000 unit/mL Solution See Rx Instructions .ROUTE .COMPLEX Rx Instructions: 3ml each bag with pd solution bid (not absorbed systemically per terence nurse from [facility] [phone]) Discharge Orders: Discharge Order (Routine); Ordered 12/24/22 Ordered By: Franky Pizarro Other Ambulatory Orders: Physical Therapy Eval and Treat Outpatient (Order) Timeframe: 1 Week Facility: [facility] - Location: Physical Therapy Early Ordered By: Franky Pizarro Referrals: [facility] [Other] (On 12/25/22 patient will need to arrive @ 7:15-7:20 for initial admission. After he will need to arrive @ 7:35 with chair time of 7:55 and off @ noon.4) Gato Bledsoe DO [Physician] - John Hernandez DO [Primary Care Provider] - 01/02/23 10:40 am Discharge Diet: As Directed Patient Instructions: Ciprofloxacin (By mouth), Fluconazole (By mouth), Linezolid (By mouth), Peritonitis (GEN) Activity Restrictions/Additional Instructions: Follow-up with your primary doctor, have them reassess your blood counts to assess for any decreases in blood counts on linezolid. Return to the hospital in case of any fever, worsening abdominal pain, nausea, inability to tolerate oral intake or medications, or other concerning symptoms. Discuss with your accounting/finance tutor regarding peritoneal dialysis catheter, consideration of removal versus keeping it with the thought of possibly resuming peritoneal dialysis at some point. Continue to monitor blood pressure at home 3 times daily, write on is to range appointment. Follow-up with your primary doctor regarding lymphedema, follow-up with lymphedema specialist. Follow-up with your primary doctor regarding tinea, continue nystatin. Continue optimization of diabetes control with your primary doctor, and follow- up regarding other chronic conditions. Discharge Attestations Time Spent in Discharge Care*: greater than 30 min Quality Metrics Clinical Quality Measures [ No reported AMI, CVA or VTE this stay] Coding Level of Care Code Acute Code for Chg Fwd Diagnoses ESRD (end stage renal disease) N18.6
== END 2022-12-24 12:57 | disposition home or self-care (01) | DRG 371 ==
LOC: ER 12-18 05:46 → MEDSURG 12-18 08:35
PROVIDERS: Hospitalist; Internal Medicine Nephrology; Physician Assistant; Surgery; Admitting Provider Internal Medicine; Emergency Provider Emergency Medicine; PCP Family Medicine; Visit Provider Internal Medicine
PROC: 0JH63XZ Insertion of Tunneled Vascular Access Device into Chest Subcutaneous Tissue and Fascia, Percutaneous Approach (ICD-10-PCS; principal; 2022-12-21 11:30)
DX: K65.9 Peritonitis, unspecified (principal); J18.9 Pneumonia, unspecified organism; N18.6 End stage renal disease; I12.0 Hypertensive chronic kidney disease with stage 5 chronic kidney disease or end stage renal disease; B20 Human immunodeficiency virus [HIV] disease; R18.8 Other ascites; E87.1 Hypo-osmolality and hyponatremia; T85.691A Other mechanical complication of intraperitoneal dialysis catheter, initial encounter; E11.22 Type 2 diabetes mellitus with diabetic chronic kidney disease; W01.190A Fall on same level from slipping, tripping and stumbling with subsequent striking against furniture, initial encounter; E78.2 Mixed hyperlipidemia; Z79.4 Long term (current) use of insulin; N40.0 Benign prostatic hyperplasia without lower urinary tract symptoms; E11.42 Type 2 diabetes mellitus with diabetic polyneuropathy; Z96.0 Presence of urogenital implants; Z79.899 Other long term (current) drug therapy; I89.0 Lymphedema, not elsewhere classified; B35.8 Other dermatophytoses; Y73.8 Miscellaneous gastroenterology and urology devices associated with adverse incidents, not elsewhere classified
CPT/HCPCS: 12345; 36415; 36416; 36600; 51701; 70450; 71045; 73620; 74018; 74176; 74177; 77001; 80051; 80053; 80503; 81003; 82042; 82330; 82805; 82945; 82962; 83605; 83615; 83690; 83735; 83986; 84100; 84145; 84157; 85018; 85025; 85651; 86140; 86705; 86706; 86709; 86803; 87040; 87070; 87075; 87086; 87205; 87340; 87635; 87641; 87804; 89050; 90935; 93005; 93970; 96361; 96372; 96374; 96376; 97110; 97161; 97530; 99285; C1750; C8929; C9113; J0360; J0690; J0692; J1644; J1815; J2020; J2405; J2543; J2704; J3010; J7030; J7040; Q3014; Q9956; Q9967

== ENCOUNTER → 2023-01-14 15:32 | Outpatient (BNVA) | payer MEDICARE, MEDICAID, SELFPAY | PROVIDERS: PCP Family Medicine; Visit Provider Surgery | DX: Z99.2 Dependence on renal dialysis (principal); N18.9 Chronic kidney disease, unspecified | CPT/HCPCS: 36590; 99203 ==

== ENCOUNTER → 2023-03-04 11:03 | Outpatient (BNVA) | payer MEDICARE, MEDICAID, SELFPAY | PROVIDERS: PCP Family Medicine; Visit Provider Podiatrist Foot & Ankle Surgery | DX: E11.8 Type 2 diabetes mellitus with unspecified complications (principal); L60.3 Nail dystrophy; L84 Corns and callosities; E11.42 Type 2 diabetes mellitus with diabetic polyneuropathy; E11.22 Type 2 diabetes mellitus with diabetic chronic kidney disease; N18.9 Chronic kidney disease, unspecified; M21.41 Flat foot [pes planus] (acquired), right foot; M21.42 Flat foot [pes planus] (acquired), left foot; I89.0 Lymphedema, not elsewhere classified; Z79.4 Long term (current) use of insulin | CPT/HCPCS: 11056; 11721 ==

== ENCOUNTER → 2023-06-03 10:59 | Outpatient (BNVA) | payer MEDICARE, MEDICAID, SELFPAY | PROVIDERS: PCP Family Medicine; Visit Provider Podiatrist Foot & Ankle Surgery | DX: E11.42 Type 2 diabetes mellitus with diabetic polyneuropathy (principal); N18.9 Chronic kidney disease, unspecified; M21.41 Flat foot [pes planus] (acquired), right foot; M21.42 Flat foot [pes planus] (acquired), left foot; L60.3 Nail dystrophy; L84 Corns and callosities; I89.0 Lymphedema, not elsewhere classified; E11.22 Type 2 diabetes mellitus with diabetic chronic kidney disease; Z79.4 Long term (current) use of insulin | CPT/HCPCS: 11055; 11721 ==

== ENCOUNTER 2023-08-29 14:27 | Emergency (ER) | payer MEDICARE, MEDICAID, SELFPAY ==
[2023-08-29] VITALS (7 sets, daily range): BP systolic 141–155; BP diastolic 60–82; PULSE 61–84; RESP 16–25; TEMP 37.3–37.4; O2SAT 90–98
--- NOTE | 2023-08-29 15:53 | W.ED.MALEGU ---
Documented by User: KEVIN Chavez 08/29/23 21:34 HPI - Male Genitourinary General: Chief complaint: Urogenital-Male Stated complaint: Urination Problems, burning when Urinating Time Seen by Provider: 08/29/23 15:51 Source: patient and family Mode of arrival: ambulatory Limitations: no limitations History of Present Illness: Patient presents emergency department today for evaluation treatment of dysuria and acute decrease in urinary output. Patient is a dialysis patient who typically only has approximately 100 mL of urine output every 1 to 2 days but, states that over the last 24 to 48 hours has only had a little bit of dribbling with intense dysuria. He has the urge to urinate but has very minimal output. Patient had dialysis today and states they took less fluid off of him today due to him being so close to his baseline dry weight. Patient is denying mid back pain. He has not had vomiting but has felt fevered. He denies incontinence but states when he has the urge to go he needs to be ready with a urinal or at the bathroom soon as possible. He has had urinary tract infections in the past and states primary care has put him on Cipro for treatment. Review of Systems General: Reports: 10 or more systems reviewed and unremarkable except in HPI and below PFSH ED PFSH: Medical History Congestive cardiac failure (Unknown) Chronic ulcer of left foot with fat layer exposed Hypertension HIV disease Mixed hyperlipidemia BPH (benign prostatic hyperplasia) Diabetic peripheral neuropathy associated with type 2 diabetes mellitus Diabetes CKD (chronic kidney disease) (Unknown) per patient attributed to vancomycin toxicity, no kidney biopsy Surgical History S/P hemodialysis catheter insertion Peritoneal dialysis catheter in situ (09/23/21) History of colonoscopy 2010 H/O foot surgery S/P ureteral stent placement Family History Father Hypertension Mother Hypertension Brother Cancer NON HODGKINS Other CAD (coronary artery disease) Diabetes Social History Smoking and tobacco/nicotine status: never used tobacco/nicotine Alcohol intake: never Marital status: Current occupational status: employed Physical Exam Const: COMMON NORMALS: no acute distress, average body habitus, patient oriented x3 and alert OTHER: Patient is pleasant, social. HENMT: COMMON NORMALS: normocephalic, atraumatic, hearing grossly normal bilaterally and moist oral mucous membranes HEAD & SCALP: normocephalic and atraumatic Eye: COMMON NORMALS: Equal, round and reactive pupils present, EOMs intact bilaterally and conjunctivae normal CONJUNCTIVA: Yes conjunctivae normal PUPIL: Yes Equal, round and reactive pupils present Neck/C-Spine: COMMON NORMALS: no JVD Lymph: LYMPHATIC: no lymphadenopathy noted Resp: COMMON NORMALS: normal respiratory effort, No retractions and No use of accessory muscles Cardio: COMMON NORMALS: no JVD and regular rate RATE: regular rate GI: OTHER: Abdomen soft. Patient has a large pannus. Extremity: COMMON NORMALS: normal to inspection, full ROM and capillary refill normal Neuro: COMMON NORMALS: patient oriented x3 SENSORIUM/ORIENTATION: Yes alert Psych: COMMON NORMALS: mental status grossly normal, cooperative, normal affect, speech normal and activity/motor behavior normal SPEECH: Yes normal speech Course Vital Signs: Vital signs: Vital Signs Temperature 99.1 F 08/29/23 19:36 Pulse Rate 84 08/29/23 21:53 Respiratory Rate 18 08/29/23 21:53 Blood Pressure 148/60 08/29/23 21:53 Pulse Oximetry 98 08/29/23 21:53 Oxygen Delivery Me thod Room Air 08/29/23 18:30 MDM - Male Medical Decision Making Patient presents emergency department today for evaluation treatment of difficulty with urination. Patient chronically has significant decreased urinary output due to his kidney failure and dialysis history but, states that now for the last 2 days has had noticeable decrease in urinary output with dribbling and low abdominal discomfort. In the room, there is an obvious odor of urine and is quite malodorous. I did request a bladder scan and postvoid residual however, nursing indicated that after multiple attempts, the bladder scanner does not seem to be able to read through the patient's pannus. For that reason I spoke to Dr. Clay and, we discussed placing an indwelling catheter to measure I&O. However, I was notified by the nurse that she was unable to place a urinary catheter of any size due to inability to advance the catheter beyond what they suspect is the prostate. Patient does have a history of BPH and is on Flomax. After speaking with Dr. Clay, patient would most likely be a candidate for admission due to inability to place urinary catheter and for that reason, I did obtain some basic labs to further evaluate the patient's current GFR/creatinine prior to consulting the hospitalist. There were several significant delays in lab collection and resulting. From my understanding, patient had to have labs redrawn approximately 3 times and we were told there were issues with the machine. As we had been waiting several hours, I went ahead and reached out to the hospitalist and spoke with Dr. Hart. He indicated that he thought the patient could be given a gram of Rocephin here in the emergency room and discharged home. I did ask for second bedside evaluation from Dr. De Anda who had arrived on shift change for Dr. Clay. He did a second bedside evaluation and did recommend waiting for final lab results before discharge. Patient's labs are stable given his chronic health concerns. Dr. De Anda and I discussed at home antibiotic therapy. Patient has tolerated Cipro before and we discussed administration of Levaquin at home. Patient was given instructions to take his Levaquin after dialysis. Given that it is the weekend and the holiday on Thursday, he was given strict return precautions to return to the emergency department for any change or worsening in his condition. Both patient and verbalized understanding and agreement to treatment plan. Differential Diagnosis Likely urinary tract infection and acute retention of urine; Unlikely priapism, urethritis, genital herpes simplex, prostatitis or inguinal hernia Lab Data 08/29/23 18:13 08/29/23 19:42 Laboratory Results WBC 11.87 10^3/uL (3.29-11.43) H 08/29/23 18:13 RBC 3.60 10^6/uL (3.85-5.65) L 08/29/23 18:13 Hgb 11.30 g/dL (11.27-16.99) 08/29/23 18:13 Hct 35.8 % (37-53) L 08/29/23 18:13 MCV 99.4 fl (82-101) 08/29/23 18: MCH 31.4 pg (27-33) 08/29/23 18: MCHC 31.6 g/dL (30-55) 08/29/23 18:13 RDW 15.1 % (12.1-15.1) 08/29/23 18:13 Plt Count 156 10^3/cmm (157-399) L 08/29/23 18:13 MPV 10.2 fL (7.4-10.4) 08/29/23 18:13 Neut % (Auto) 74.2 % 08/29/23 18:13 Lymph % (Auto) 19.2 % 08/29/23 18:13 [place] % (Auto) 5.1 % 08/29/23 18:13 Eos % (Auto) 0.8 % 08/29/23 18:13 Baso % (Auto) 0.3 % 08/29/23 18:13 Neut # (Auto) 8.80 10^3/uL (1.8-7.7) H 08/29/23 18:13 Lymph # (Auto) 2.3 10^3/uL (0.8-4.8) 08/29/23 18:13 [place] # (Auto) 0.6 10^3/uL (0.2-0.9) 08/29/23 18:13 Eos # (Auto) 0.1 10^3/uL (0.0-0.8) 08/29/23 18:13 Baso # (Auto) 0.0 10^3/uL (0.0-0.1) 08/29/23 18:13 Nucleated RBC % (auto) 0 % 08/29/23 18:13 Nucleated RBCs # 0.0 /100WBC 08/29/23 18:13 Sodium 134 mmol/L (136-145) L 08/29/23 19:42 Potassium 4.7 mmol/L (3.5-5.1) 08/29/23 19:42 Chloride 96 mmol/L (98-107) L 08/29/23 19:42 Carbon Dioxide 28 mmol/L (22-29) 08/29/23 19:42 Anion Gap 14.7 (5-19) 08/29/23 19:42 BUN 22 mg/dL (6-20) H 08/29/23 19:42 Creatinine 5.0 mg/dL (0.7-1.2) H 08/29/23 19:42 GFR Calculation 12.0 mL/min (90-130) L 08/29/23 19:42 Glucose 85 mg/dL (65-115) 08/29/23 19:42 POC Glucose 73 mg/dL (70-110) 08/29/23 20:28 Calculated Osmolality 281 mOsm/kg (285-295) L 08/29/23 19:42 Lactic Acid 0.9 mmol/L (0.5-2.2) 08/29/23 18:13 Calcium 8.6 mg/dL (8.5-10.5) 08/29/23 19:42 Total Bilirubin 0.9 mg/dL (0.15-1.2) 08/29/23 19:42 AST 27 U/L (0-40) 08/29/23 19:42 ALT 41 U/L (0-41) 08/29/23 19:42 Alkaline Phosphatase 117 U/L (40-130) 08/29/23 19:42 Total Protein 7.5 g/dL (6.6-8.7) 08/29/23 19:42 Albumin 3.7 g/dL (3.5-5.2) 08/29/23 19:42 Globulin 3.8 g/dL (1.3-4.6) 08/29/23 19:42 Procalcitonin 0.34 ng/mL (0-0.5) 08/29/23 19:42 No radiology studies performed this visit Discharge Plan Discharge Patient Disposition: Home Clinical Impression: Dysuria, CKD (chronic kidney disease), Diabetes, ESRD (end stage renal disease), BPH (benign prostatic hyperplasia) Condition: Stable Prescriptions: New levofloxacin 750 mg tablet 750 mg PO DAILY 7 Days Qty: 7 0RF levofloxacin 750 mg tablet 750 mg PO DAILY 7 Days Qty: 7 0RF No Action cholecalciferol (vitamin D3) 125 mcg (5,000 unit) capsule 125 mcg PO DAILY@06 hydralazine 25 mg tablet See Rx Instructions .ROUTE .COMPLEX Qty: 120 3RF Dose Instruction: TAKE 1 TABLET BY MOUTH FOUR TIMES A DAY Rx Instructions: TAKE 1 TABLET BY MOUTH FOUR TIMES A DAY amoxicillin 875 mg tablet 875 mg PO BID Qty: 20 0RF loratadine 10 mg tablet 10 mg PO DAILY PRN (Reason: Allergy Symptoms) metolazone 5 mg tablet 5 mg PO DAILY@06 sorbitol 70 % solution 30 ml PO BID PRN (Reason: constipation) torsemide 100 mg tablet 100 mg PO DAILY@0630 triamcinolone acetonide 0.1 % cream 1 applic topical DAILY PRN (Reason: rash) Levemir FlexTouch U100 Insulin 100 unit/mL (3 mL) insulin pen See Rx Instructions .ROUTE .COMPLEX Qty: 75 11RF Rx Instructions: 80 units subcutaneously every morning and 120 units in the evening (DME) pen needle, diabetic [BD Maylin 2nd Gen Pen Needle] 32 gauge x 5/32 needle See Rx Instructions .ROUTE .MEDSUPPLY Qty: 100 11RF Rx Instructions: As directed bid metoprolol tartrate 100 mg tablet See Rx Instructions .ROUTE .COMPLEX Qty: 225 3RF Dose Instruction: TAKE 1 1/2 TABLETS BY MOUTH TWICE A DAY Rx Instructions: TAKE 1 1/2 TABLETS BY MOUTH TWICE A DAY allopurinol 300 mg tablet See Rx Instructions .ROUTE .COMPLEX Qty: 30 11RF Dose Instruction: TAKE ONE TABLET BY MOUTH ONCE DAILY Rx Instructions: TAKE ONE TABLET BY MOUTH ONCE DAILY minoxidil 10 mg tablet See Rx Instructions .ROUTE .COMPLEX Qty: 45 3RF Dose Instruction: TAKE 1/2 TABLET BY MOUTH DAILY Rx Instructions: TAKE 1/2 TABLET BY MOUTH DAILY tamsulosin 0.4 mg capsule 0.8 mg PO QPM Qty: 180 3RF Biktarvy 50-200-25 mg tablet 1 tab PO BEDTIME gentamicin 0.1 % cream See Rx Instructions .ROUTE .COMPLEX Rx Instructions: apply to exit site daily as directed calcium acetate(phosphat bind) 667 mg capsule 667 mg PO TIDWM potassium chloride 20 mEq tablet extended release 20 meq PO BID RenaPlex-D 800 mcg-12.5 mg -2,000 unit tablet 1 tab PO DAILY@06 Rx Instructions: (ON DIALYSIS DAYS, TAKE AFTER DIALYSIS TREATMENT) docusate sodium 100 mg capsule 100 mg PO BID PRN (Reason: Constipation) heparin (porcine) 1,000 unit/mL Solution See Rx Instructions .ROUTE .COMPLEX Rx Instructions: 3ml each bag with pd solution bid (not absorbed systemically per terence nurse from [facility] [phone]) fluconazole 100 mg Tablet 100 mg PO DAILY Qty: 14 0RF Discharge Orders: Discharge ED (Routine); Ordered 08/29/23 Ordered By: María Wong Referrals: John Hernandez DO [Primary Care Provider] - Discharge Diet: Diabetic Discharge Activity: Increase activity as tolerated Activity Restrictions/Additional Instructions: Lab work today is stable. After discussing with both the emergency room physician here and the hospitalist periodontal assistant, they both believe you are stable for at home treatment. We provided your first dose of antibiotics here in the emergency department with the rest being sent to the pharmacy. We encourage you to take your antibiotic after your days where you receive dialysis. Given that it is the weekend and the holiday coming up, we want you to carefully monitor your symptoms and return to the emergency department for any acute worsening or change in your condition. Coding Level of Care Code ED Player Development Executive for Chg Fwd Documented by User: [email or web address] De Anda DO 08/30/23 01:08 HPI - Male Genitourinary General: Chief complaint: Urogenital-Male Stated complaint: Urination Problems, burning when Urinating Time Seen by Provider: 08/29/23 15:51 PFSH ED PFSH: Medical History Congestive cardiac failure (Unknown) Chronic ulcer of left foot with fat layer exposed Hypertension HIV disease Mixed hyperlipidemia BPH (benign prostatic hyperplasia) Diabetic peripheral neuropathy associated with type 2 diabetes mellitus Diabetes CKD (chronic kidney disease) (Unknown) per patient attributed to vancomycin toxicity, no kidney biopsy Surgical History S/P hemodialysis catheter insertion Peritoneal dialysis catheter in situ (09/23/21) History of colonoscopy 2011 H/O foot surgery S/P ureteral stent placement Family History Father Hypertension Mother Hypertension Brother Cancer NON HODGKINS Other CAD (coronary artery disease) Diabetes Social History Smoking and tobacco/nicotine status: never used tobacco/nicotine Alcohol intake: never Marital status: Current occupational status: employed Course Vital Signs: Vital signs: Vital Signs Temperature 99.1 F 08/29/23 19:36 Pulse Rate 84 08/29/23 21:53 Respiratory Rate 18 08/29/23 21:53 Blood Pressure 148/60 08/29/23 21:53 Pulse Oximetry 98 08/29/23 21:53 Oxygen Delivery Me thod Room Air 08/29/23 18:30 MDM - Male Medical Decision Making Patient presents emergency department today for evaluation treatment of difficulty with urination. Patient chronically has significant decreased urinary output due to his kidney failure and dialysis history but, states that now for the last 2 days has had noticeable decrease in urinary output with dribbling and low abdominal discomfort. In the room, there is an obvious odor of urine and is quite malodorous. I did request a bladder scan and postvoid residual however, nursing indicated that after multiple attempts, the bladder scanner does not seem to be able to read through the patient's pannus. For that reason I spoke to Dr. Clay and, we discussed placing an indwelling catheter to measure I&O. However, I was notified by the nurse that she was unable to place a urinary catheter of any size due to inability to advance the catheter beyond what they suspect is the prostate. Patient does have a history of BPH and is on Flomax. After speaking with Dr. Caly, patient would most likely be a candidate for admission due to inability to place urinary catheter and for that reason, I did obtain some basic labs to further evaluate the patient's current GFR/creatinine prior to consulting the hospitalist. There were several significant delays in lab collection and resulting. From my understanding, patient had to have labs redrawn approximately 3 times and we were told there were issues with the machine. As we had been waiting several hours, I went ahead and reached out to the hospitalist and spoke with Dr. Hart. He indicated that he thought the patient could be given a gram of Rocephin here in the emergency room and discharged home. I did ask for second bedside evaluation from Dr. De Anda who had arrived on shift change for Dr. Clay. He did a second bedside evaluation and did recommend waiting for final lab results before discharge. Patient's labs are stable given his chronic health concerns. Dr. De Anda and I discussed at home antibiotic therapy. Patient has tolerated Cipro before and we discussed administration of Levaquin at home. Patient was given instructions to take his Levaquin after dialysis. Given that it is the weekend and the holiday on Thursday, he was given strict return precautions to return to the emergency department for any change or worsening in his condition. Both patient and verbalized understanding and agreement to treatment plan. This patient was originally seen by Mrs. Marvin PA-C.? I agree with her history, evaluation, and treatment. I examined the patient as well. I agree with the above. He will be covered for UTI with antibiotics. Lab Data 08/29/23 18:13 08/29/23 19:42 Laboratory Results WBC 11.87 10^3/uL (3.29-11.43) H 08/29/23 18:13 RBC 3.60 10^6/uL (3.85-5.65) L 08/29/23 18:13 Hgb 11.30 g/dL (11.27-16.99) 08/29/23 18:13 Hct 35.8 % (37-53) L 08/29/23 18:13 MCV 99.4 fl (82-101) 08/29/23 18:13 MCH 31.4 pg (27-33) 08/29/23 18:13 MCHC 31.6 g/dL (30-55) 08/29/23 18:13 RDW 15.1 % (12.1-15.1) 08/29/23 18:13 Plt Count 156 10^3/cmm (157-399) L 08/29/23 18:13 MPV 10.2 fL (7.4-10.4) 08/29/23 18:13 Neut % (Auto) 74.2 % 08/29/23 18:13 Lymph % (Auto) 19.2 % 08/29/23 18:13 [place] % (Auto) 5.1 % 08/29/23 18:13 Eos % (Auto) 0.8 % 08/29/23 18:13 Baso % (Auto) 0.3 % 08/29/23 18:13 Neut # (Auto) 8.80 10^3/uL (1.8-7.7) H 08/29/23 18:13 Lymph # (Auto) 2.3 10^3/uL (0.8-4.8) 08/29/23 18:13 [place] # (Auto) 0.6 10^3/uL (0.2-0.9) 08/29/23 18:13 Eos # (Auto) 0.1 10^3/uL (0.0-0.8) 08/29/23 18:13 Baso # (Auto) 0.0 10^3/uL (0.0-0.1) 08/29/23 18:13 Nucleated RBC % (auto) 0 % 08/29/23 18:13 Nucleated RBCs # 0.0 /100WBC 08/29/23 18:13 Sodium 134 mmol/L (136-145) L 08/29/23 19:42 Potassium 4.7 mmol/L (3.5-5.1) 08/29/23 19:42 Chloride 96 mmol/L (98-107) L 08/29/23 19:42 Carbon Dioxide 28 mmol/L (22-29) 08/29/23 19:42 Anion Gap 14.7 (5-19) 08/29/23 19:42 BUN 22 mg/dL (6-20) H 08/29/23 19:42 Creatinine 5.0 mg/dL (0.7-1.2) H 08/29/23 19:42 GFR Calculation 12.0 mL/min (90-130) L 08/29/23 19:42 Glucose 85 mg/dL (65-115) 08/29/23 19:42 POC Glucose 73 mg/dL (70-110) 08/29/23 20:28 Calculated Osmolality 281 mOsm/kg (285-295) L 08/29/23 19:42 Lactic Acid 0.9 mmol/L (0.5-2.2) 08/29/23 18:13 Calcium 8.6 mg/dL (8.5-10.5) 08/29/23 19:42 Total Bilirubin 0.9 mg/dL (0.15-1.2) 08/29/23 19:42 AST 27 U/L (0-40) 08/29/23 19:42 ALT 41 U/L (0-41) 08/29/23 19:42 Alkaline Phosphatase 117 U/L (40-130) 08/29/23 19:42 Total Protein 7.5 g/dL (6.6-8.7) 08/29/23 19:42 Albumin 3.7 g/dL (3.5-5.2) 08/29/23 19:42 Globulin 3.8 g/dL (1.3-4.6) 08/29/23 19:42 Procalcitonin 0.34 ng/mL (0-0.5) 08/29/23 19:42 Discharge Plan Discharge Patient Disposition: Home Clinical Impression: Dysuria, CKD (chronic kidney disease), Diabetes, ESRD (end stage renal disease), BPH (benign prostatic hyperplasia) Condition: Stable Prescriptions: New levofloxacin 750 mg tablet 750 mg PO DAILY 7 Days Qty: 7 0RF levofloxacin 750 mg tablet 750 mg PO DAILY 7 Days Qty: 7 0RF No Action cholecalciferol (vitamin D3) 125 mcg (5,000 unit) capsule 125 mcg PO DAILY@06 hydralazine 25 mg tablet See Rx Instructions .ROUTE .COMPLEX Qty: 120 3RF Dose Instruction: TAKE 1 TABLET BY MOUTH FOUR TIMES A DAY Rx Instructions: TAKE 1 TABLET BY MOUTH FOUR TIMES A DAY amoxicillin 875 mg tablet 875 mg PO BID Qty: 20 0RF loratadine 10 mg tablet 10 mg PO DAILY PRN (Reason: Allergy Symptoms) metolazone 5 mg tablet 5 mg PO DAILY@06 sorbitol 70 % solution 30 ml PO BID PRN (Reason: constipation) torsemide 100 mg tablet 100 mg PO DAILY@0630 triamcinolone acetonide 0.1 % cream 1 applic topical DAILY PRN (Reason: rash) Levemir FlexTouch U100 Insulin 100 unit/mL (3 mL) insulin pen See Rx Instructions .ROUTE .COMPLEX Qty: 75 11RF Rx Instructions: 80 units subcutaneously every morning and 120 units in the evening (DME) pen needle, diabetic [BD Maylin 2nd Gen Pen Needle] 32 gauge x 32 needle See Rx Instructions .ROUTE .MEDSUPPLY Qty: 100 11RF Rx Instructions: As directed bid metoprolol tartrate 100 mg tablet See Rx Instructions .ROUTE .COMPLEX Qty: 225 3RF Dose Instruction: TAKE 1 1/2 TABLETS BY MOUTH TWICE A DAY Rx Instructions: TAKE 1 1/2 TABLETS BY MOUTH TWICE A DAY allopurinol 300 mg tablet See Rx Instructions .ROUTE .COMPLEX Qty: 30 11RF Dose Instruction: TAKE ONE TABLET BY MOUTH ONCE DAILY Rx Instructions: TAKE ONE TABLET BY MOUTH ONCE DAILY minoxidil 10 mg tablet See Rx Instructions .ROUTE .COMPLEX Qty: 45 3RF Dose Instruction: TAKE 1/2 TABLET BY MOUTH DAILY Rx Instructions: TAKE 1/2 TABLET BY MOUTH DAILY tamsulosin 0.4 mg capsule 0.8 mg PO QPM Qty: 180 3RF Biktarvy 50-200-25 mg tablet 1 tab PO BEDTIME gentamicin 0.1 % cream See Rx Instructions .ROUTE .COMPLEX Rx Instructions: apply to exit site daily as directed calcium acetate(phosphat bind) 667 mg capsule 667 mg PO TIDWM potassium chloride 20 mEq tablet extended release 20 meq PO BID RenaPlex-D 800 mcg-12.5 mg -2,000 unit tablet 1 tab PO DAILY@06 Rx Instructions: (ON DIALYSIS DAYS, TAKE AFTER DIALYSIS TREATMENT) docusate sodium 100 mg capsule 100 mg PO BID PRN (Reason: Constipation) heparin (porcine) 1,000 unit/mL Solution See Rx Instructions .ROUTE .COMPLEX Rx Instructions: 3ml each bag with pd solution bid (not absorbed systemically per terence nurse from [facility] [phone]) fluconazole 100 mg Tablet 100 mg PO DAILY Qty: 14 0RF Discharge Orders: Discharge ED (Routine); Ordered 08/29/23 Ordered By: María Wong Referrals: John Hernandez DO [Primary Care Provider] - Discharge Diet: Diabetic Discharge Activity: Increase activity as tolerated Activity Restrictions/Additional Instructions: Lab work today is stable. After discussing with both the emergency room physician here and the hospitalist periodontal assistant, they both believe you are stable for at home treatment. We provided your first dose of antibiotics here in the emergency department with the rest being sent to the pharmacy. We encourage you to take your antibiotic after your days where you receive dialysis. Given that it is the weekend and the holiday coming up, we want you to carefully monitor your symptoms and return to the emergency department for any acute worsening or change in your condition. Coding Level of Care Code ED Player Development Executive for Fred Ashford
[2023-08-29 18:42] LABS: Lactic Sepsis W/Reflex 0.9 mmol/L (0.5-2.2)
[2023-08-29 18:45] LABS: Basophils % 0.3 %; Eosinophils # 0.1 10^3/uL (0.0-0.8); Eosinophils % 0.8 %; Hematocrit 35.8 % (37-53); Lymphocytes # 2.3 10^3/uL (0.8-4.8); Lymphocytes % 19.2 %; Mean Corpuscular HGB Conc 31.6 g/dL (30-55); Mean Corpuscular Hemoglobin 31.4 pg (27-33); Mean Corpuscular Volume 99.4 fl (82-101); Mean Platelet Volume 10.2 fL (7.4-10.4); Monocytes # 0.6 10^3/uL (0.2-0.9); Monocytes % 5.1 %; Neutrophils % 74.2 %; Nucleated Red Blood Cells % 0 %; Platelet Count 156 10^3/cmm (157-399); Red Cell Distribution Width 15.1 % (12.1-15.1); White Blood Count 11.87 10^3/uL (3.29-11.43)
[2023-08-29 20:27] LABS: Alanine Aminotransferase 41 U/L (0-41); Alkaline Phosphatase 117 U/L (40-130); Glucose 85 mg/dL (65-115); Total Bilirubin 0.9 mg/dL (0.15-1.2)
[2023-08-29 20:32] LABS: Glucose Point of Care 73 mg/dL (70-110)
[2023-08-29 20:34] LABS: Procalcitonin 0.34 ng/mL (0-0.5)
--- NOTE | 2023-08-29 20:35 | PC.NURSE ---
abx delayed d/t medication being unverified
--- NOTE | 2023-08-29 20:47 | PC.NURSE ---
pt glucose 73 via fingerstick. pt given peanut butter per pt request
--- NOTE | 2023-08-29 20:47 | PC.NURSE ---
abx delayed d/t medication being unverified, still, at this time.
[2023-08-29 20:54] LABS: Aspartate Amino Transferase 27 U/L (0-40); Chloride 96 mmol/L (98-107)
[2023-08-29] MEDS: cefTRIAXone 2,000 MG in sodium chloride 0.9% (plus) 50 ML 100 MG IV (21:01)
[2023-08-29 21:03] LABS: Albumin Level 3.7 g/dL (3.5-5.2); Anion Gap 14.7 (5-19); Blood Urea Nitrogen 22 mg/dL (6-20); Calcium 8.6 mg/dL (8.5-10.5); Carbon Dioxide 28 mmol/L (22-29); Globulin 3.8 g/dL (1.3-4.6); Osmolality Calculated 281 mOsm/kg (285-295); Potassium 4.7 mmol/L (3.5-5.1); Sodium 134 mmol/L (136-145); Total Protein 7.5 g/dL (6.6-8.7)
== END 2023-08-29 21:54 | disposition home or self-care (01) ==
PROVIDERS: Emergency Provider Physician Assistant; PCP Family Medicine
DX: N40.1 Benign prostatic hyperplasia with lower urinary tract symptoms (principal); R30.0 Dysuria; E11.22 Type 2 diabetes mellitus with diabetic chronic kidney disease; I13.2 Hypertensive heart and chronic kidney disease with heart failure and with stage 5 chronic kidney disease, or end stage renal disease; I50.9 Heart failure, unspecified; N18.6 End stage renal disease; B20 Human immunodeficiency virus [HIV] disease; E78.2 Mixed hyperlipidemia; E11.42 Type 2 diabetes mellitus with diabetic polyneuropathy
CPT/HCPCS: 36415; 36416; 51798; 80053; 82962; 83605; 84145; 85025; 87040; 96374; 99284; J0696

== ENCOUNTER → 2023-09-30 09:13 | Outpatient (BNVA) | payer MEDICARE, MEDICAID, SELFPAY | PROVIDERS: PCP Family Medicine; Visit Provider Podiatrist Foot & Ankle Surgery | DX: E11.42 Type 2 diabetes mellitus with diabetic polyneuropathy; N18.9 Chronic kidney disease, unspecified; M21.41 Flat foot [pes planus] (acquired), right foot; M21.42 Flat foot [pes planus] (acquired), left foot; L60.3 Nail dystrophy; L84 Corns and callosities; I89.0 Lymphedema, not elsewhere classified; E11.29 Type 2 diabetes mellitus with other diabetic kidney complication; Z79.4 Long term (current) use of insulin | CPT/HCPCS: 11055; 11721 ==

== ENCOUNTER → 2023-12-30 08:58 | Outpatient (BNVA) | payer MEDICARE, MEDICAID, SELFPAY | PROVIDERS: PCP Family Medicine; Visit Provider Podiatrist Foot & Ankle Surgery | DX: E11.42 Type 2 diabetes mellitus with diabetic polyneuropathy (principal); N18.9 Chronic kidney disease, unspecified; M21.41 Flat foot [pes planus] (acquired), right foot; M21.42 Flat foot [pes planus] (acquired), left foot; L60.3 Nail dystrophy; L84 Corns and callosities; I89.0 Lymphedema, not elsewhere classified; L97.522 Non-pressure chronic ulcer of other part of left foot with fat layer exposed; E11.621 Type 2 diabetes mellitus with foot ulcer; Z79.4 Long term (current) use of insulin | CPT/HCPCS: 11055; 11721; 99213 ==

== ENCOUNTER → 2024-03-30 11:02 | Outpatient (BNVA) | payer MEDICARE, MEDICAID, SELFPAY | PROVIDERS: PCP Family Medicine; Visit Provider Podiatrist Foot & Ankle Surgery | DX: E11.42 Type 2 diabetes mellitus with diabetic polyneuropathy (principal); N18.9 Chronic kidney disease, unspecified; M21.41 Flat foot [pes planus] (acquired), right foot; M21.42 Flat foot [pes planus] (acquired), left foot; L60.3 Nail dystrophy; L84 Corns and callosities; I89.0 Lymphedema, not elsewhere classified; Z79.4 Long term (current) use of insulin | CPT/HCPCS: 11056; 11721 ==

== ENCOUNTER → 2024-07-06 12:12 | Outpatient (BNVA) | payer MEDICARE, MEDICAID, SELFPAY | PROVIDERS: PCP Family Medicine; Visit Provider Podiatrist Foot & Ankle Surgery | DX: E11.42 Type 2 diabetes mellitus with diabetic polyneuropathy (principal); N18.9 Chronic kidney disease, unspecified; L60.3 Nail dystrophy; L84 Corns and callosities; I89.0 Lymphedema, not elsewhere classified; N18.6 End stage renal disease | CPT/HCPCS: 11056; 11721 ==

== ENCOUNTER → 2024-11-07 09:56 | Outpatient (BNVA) | payer MEDICARE, MEDICAID, SELFPAY | PROVIDERS: PCP Family Medicine; Visit Provider Podiatrist Foot & Ankle Surgery | DX: E11.42 Type 2 diabetes mellitus with diabetic polyneuropathy (principal); L60.3 Nail dystrophy; L84 Corns and callosities; N18.9 Chronic kidney disease, unspecified; I89.0 Lymphedema, not elsewhere classified; N18.6 End stage renal disease; Z79.4 Long term (current) use of insulin | CPT/HCPCS: 11056; 11721 ==

== ENCOUNTER → 2025-02-07 14:18 | Outpatient (BNVA) | payer MEDICARE, MEDICAID, SELFPAY | PROVIDERS: PCP Family Medicine | DX: L05.91 Pilonidal cyst without abscess (principal) | CPT/HCPCS: 87070; 87075; 87205 ==

== ENCOUNTER → 2025-02-08 09:36 | Outpatient (BNVA) | payer MEDICARE, MEDICAID, SELFPAY | PROVIDERS: PCP Family Medicine; Visit Provider Podiatrist Foot & Ankle Surgery | DX: E11.42 Type 2 diabetes mellitus with diabetic polyneuropathy (principal); L60.3 Nail dystrophy; L84 Corns and callosities; N18.9 Chronic kidney disease, unspecified; I89.0 Lymphedema, not elsewhere classified; N18.6 End stage renal disease; Z79.4 Long term (current) use of insulin | CPT/HCPCS: 11056; 11721 ==

== ENCOUNTER → 2025-02-17 08:39 | Outpatient (BNVA) | payer MEDICARE, MEDICAID, SELFPAY | PROVIDERS: PCP Family Medicine; Visit Provider Student in an Organized Health Care Education/Training Program | DX: L05.91 Pilonidal cyst without abscess (principal) | CPT/HCPCS: 99204 ==

== ENCOUNTER 2025-02-22 09:01 | Day surgery (SDC) | payer MEDICARE, MEDICAID, SELFPAY ==
[2025-02-22] VITALS (12 sets, daily range): BP systolic 126–169; BP diastolic 48–80; PULSE 57–86; RESP 15–27; TEMP 36.2–36.5; O2SAT 90–94; BMI 49.3
--- NOTE | 2025-02-22 09:40 | W.PM.OPSUD ---
Surgery/Procedure H&P Update DATE OF PROCEDURE: February 22, 2025 DATE H&P PERFORMED: 02/17/25 H&P UPDATE INFORMATION: I have reviewed H&P completed within last 30 days, I have examined patient prior to procedure and No changes to prior documentation PLANNED PROCEDURE: Operation Date: 02/22/25 10:40 Proposed Procedures p Pilonidal Cystectomy 86912, L05.91(Not Applicable) - Chapito Ríos MD
--- NOTE | 2025-02-22 09:50 | ANES.PREANE2 ---
Pre-Anesthetic Assessment Height/Weight: Height 1.93 m Weight 183.705 kg Temp Pulse Resp BP Pulse Ox O2 Del Method 97.2 F L 57 L 17 169/66 93 Room Air 02/22/25 09:25 02/22/25 09:25 02/22/25 09:25 02/22/25 09:25 02/22/25 09:25 02/22/25 09:25 Preop Diagnosis: pilonidal cyst Operation Date: 02/22/25 10:40 Proposed Procedures p Pilonidal Cystectomy 15788, L05.91(Not Applicable) - Chapito Ríos MD Familial anesthetic complications: none Was Beta Yee taken within 24 hours: Yes Was Clonidine taken within 24 hours: N/A Last intake: Intake Last Liquid Date 02/22/25 Last Liquid Time 0600- sip of water with meds Last Solid Date 02/21/25 Last Solid Time 18:00 Social No alcohol and No tobacco Exam alert, oriented x 3 and regular rate & rhythm Airway Mallampati: Class II Dentition: full History/ROS No significant history except as noted Pulmonary Sleep Apnea (wears cpap) CV/HEM Congestive Heart Failure and Hypertension Hx HIV noted in chart Chronic Renal Failure (on dialysis Thursday/ / Thursday. Last dialysis 02/21) Hepatic None reported GI Gastroesophageal Reflux Disease Metabolic Diabetes Mellitus (states he took 1/2 dose of insulin last night. Will obtain POC glucose ), Hyperlipidemia and Morbid Obesity [facility] None reported Neuropsych Neuropathy Anesthetic Plan ASA status: 4 Anesthesia: Anesthesia Evaluation and General Other: Pt had labs at outside facility and could not obtain resuts. Will obtain labs prior to procedure Risk of > 500 ml blood loss (7ml/kg in children): No Medications/Allergies Home Medications ?Medication ?Instructions ?Recorded ?Confirmed ?Last Taken ?Type cholecalciferol (vitamin D3) 125 125 mcg PO DAILY@06 11/19/20 02/21/25 02/21/25 History mcg (5,000 unit) capsule bictegravir 50 mg-emtricitabine 1 tab PO BEDTIME 07/15/21 02/21/25 02/21/25 History 200 mg-tenofovir alafenam 25 mg tablet (Biktarvy) loratadine 10 mg tablet 10 mg PO DAILY PRN Allergy Symptoms 03/07/22 02/21/25 02/21/25 History triamcinolone acetonide 0.1 % 1 applic topical DAILY PRN rash 04/23/22 02/22/25 Unknown History topical cream docusate sodium 100 mg capsule 100 mg PO BID PRN Constipation 12/18/22 02/21/25 Unknown History heparin (porcine) 1,000 unit/mL See Rx Instructions .Route .COMPLEX 12/18/22 02/21/25 02/21/25 History injection solution calcium acetate(phosphat bind) 667 1,334 mg (2 x 667 mg) PO TID #1 cap 10/23/23 02/22/25 02/21/25 Rx mg capsule losartan 100 mg tablet 100 mg PO DAILY #1 tab 10/23/23 02/21/25 02/21/25 Rx tamsulosin 0.4 mg capsule 0.8 mg (2 x 0.4 mg) PO QPM #180 05/04/24 02/21/25 02/21/25 Rx caps pen needle, diabetic 32 gauge x #100 ea 10/10/24 02/17/25 Unknown Rx 5/32 (BD Maylin 2nd Gen Pen Needle) insulin glargine 100 unit/mL (3 See Rx Instructions SUBCUT BID DM 10/17/24 02/21/25 02/21/25 Rx mL) subcutaneous pen (Lantus #45 mL Solostar U-100 Insulin) metoprolol tartrate 100 mg tablet See Rx Instructions .Route .COMPLEX 11/07/24 02/21/25 02/21/25 History blood-glucose sensor (Dexcom G7 #3 ea 02/01/25 02/17/25 Unknown Rx Sensor device) blood-glucose,water filtration technician,cont #1 ea 02/01/25 02/17/25 Unknown Rx (Dexcom G7 Dumper Bailer Operator) allopurinol 300 mg tablet 300 mg PO DAILY 02/22/25 02/22/25 02/22/25 History hydralazine 50 mg tablet 50 mg PO QID 02/22/25 02/22/25 02/22/25 History Allergies Allergy/AdvReac Type Severity Reaction Status Date / Time pioglitazone (From Actos) AdvReac Severe Unknown Verified 02/21/25 14:06 [facility] Anesthesia Medical History Enrolled in chronic care management PLEASE DO NOT REMOVE FROM ACTIVE Congestive cardiac failure (Unknown) Chronic ulcer of left foot with fat layer exposed Hypertension HIV disease Mixed hyperlipidemia BPH (benign prostatic hyperplasia) Diabetic peripheral neuropathy associated with type 2 diabetes mellitus Diabetes CKD (chronic kidney disease) (Unknown) per patient attributed to vancomycin toxicity, no kidney biopsy Surgical History S/P hemodialysis catheter insertion Peritoneal dialysis catheter in situ (09/23/21) History of colonoscopy 2010 H/O foot surgery S/P ureteral stent placement Family History Father Hypertension Mother Hypertension Brother Cancer NON HODGKINS Other CAD (coronary artery disease) Diabetes Social History Smoking and tobacco/nicotine status: never used tobacco/nicotine Alcohol intake: never Marital status: Current occupational status: employed Data Anesthesia Cardiac Studies: Echocardiogram 12/18/22
[2025-02-22 09:55] LABS: Glucose Point of Care 130 mg/dL (70-110)
[2025-02-22 10:00] LABS: Basophils % 0.5 %; Eosinophils # 0.2 10^3/uL (0.0-0.8); Eosinophils % 2.1 %; Hematocrit 34.1 % (37-53); Lymphocytes # 2.4 10^3/uL (0.8-4.8); Lymphocytes % 26.9 %; Mean Corpuscular HGB Conc 33.1 g/dL (30-55); Mean Corpuscular Hemoglobin 33.4 pg (27-33); Mean Corpuscular Volume 100.9 fl (82-101); Mean Platelet Volume 9.7 fL (7.4-10.4); Monocytes # 0.4 10^3/uL (0.2-0.9); Neutrophils # 5.71 10^3/uL (1.8-7.7); Neutrophils % 64.3 %; Nucleated Red Blood Cells % 0 %; Platelet Count 172 10^3/cmm (157-399); Red Blood Count 3.38 10^6/uL (3.85-5.65); Red Cell Distribution Width 13.7 % (12.1-15.1); White Blood Count 8.88 10^3/uL (3.29-11.43)
[2025-02-22] MEDS: sodium chloride 0.9% 1,000 ML 30 ML IV (10:01)
[2025-02-22 10:21] LABS: Anion Gap 14.8 (5-19); Blood Urea Nitrogen 38 mg/dL (8-23); Calcium 8.9 mg/dL (8.5-10.5); Carbon Dioxide 30 mmol/L (22-29); Chloride 98 mmol/L (98-107); Creatinine Clr Calc Pharmacy 21.4636; Glomerular Filtration Rate 8.8 mL/min (90-130); Glucose 135 mg/dL (65-115); Osmolality Calculated 297 mOsm/kg (285-295); Potassium 4.8 mmol/L (3.5-5.1); Sodium 138 mmol/L (136-145)
--- NOTE | 2025-02-22 10:34 | PC.NURSE ---
1028: critical lab results of creatinine 6.5. reported to Flavia
[2025-02-22] MEDS: piperacillin-tazobactam 3.375 GM in sodium chloride 0.9% (plus) 50 ML IV (10:35)
--- NOTE | 2025-02-22 11:10 | PM.OP ---
Operative Report Date of procedure: February 22, 2025 Pre-op diagnosis: Infected pilonidal cyst Post-op diagnosis: Perineal abscess and cellulitis Post-op findings: On exam under anesthesia, there is a midline scar from a prior excision. To the left of the midline a 3 x 2 x 3 cm abscess cavity was encountered with surrounding cellulitis. Procedure done: Incision and drainage of perineal abscess. Implants: N/A Specimens removed/disposition: N/A Pathology: none sent Surgeon: Chapito Ríos MD Asset Recovery Specialist: N/A Anesthesia: MAC Estimated blood loss (mL): 5 Complications: N/A Findings: On exam under anesthesia, there is a midline scar from a prior excision. To the left of the midline a 3 x 2 x 3 cm abscess cavity was encountered with surrounding cellulitis. Condition: stable Disposition: same day Brief History: 59-year-old male who presented with a possible infected pilonidal cyst. Discussed risk and benefits and patient agreed to proceed with pilonidal cyst excision. Procedure: Patient was brought into the OR. Antibiotics administered. MAC induced. Patient positioned in left lateral decubitus. The perineum was prepped and draped in usual sterile fashion. A midline scar from the prior excision was found on exam. To the left there was an area of fluctuance and cellulitis. An 11 blade was used to incise on this area. A 3 x 2 x 3 cm abscess cavity was encountered. 5 cc of purulent fluid was evacuated. The wound was washed out with normal saline. Adequate hemostasis was achieved using electrocautery. Wound was packed using Nu Gauze. The patient woke up from anesthesia without any complications.
[2025-02-22] MEDS: BUPivacaine 0.5% INJ 10 mL 3 ML INJECTION (11:36)
[2025-02-22] MEDS: lidocaine-epi 1% 20 mL INJ 3 ML INJECTION (11:36)
[2025-02-22 11:43] LABS: Glucose Point of Care 104 mg/dL (70-110)
--- NOTE | 2025-02-22 12:50 | ANE.PACU2 ---
Inpatient post-anesthesia follow up: Airway intact: Yes Vital signs: Temperature 97.6 F Pulse Rate 76 Respiratory Rate 17 Blood Pressure 132/72 Pulse Oximetry 92 Oxygen Delivery Me thod Room Air Oxygen Flow Rate Fraction of Inspir ed Oxygen Hydration adequate: Yes Nausea and vomiting: No Pain level: 1 Mental status: Baseline
== END 2025-02-22 12:51 | disposition home or self-care (01) ==
PROVIDERS: Student in an Organized Health Care Education/Training Program; PCP Family Medicine; Visit Provider Student in an Organized Health Care Education/Training Program
PROC: (CPT 46050; principal; 2025-02-22 10:40)
DX: L05.01 Pilonidal cyst with abscess (principal); L03.818 Cellulitis of other sites; G47.33 Obstructive sleep apnea (adult) (pediatric); I50.9 Heart failure, unspecified; K21.9 Gastro-esophageal reflux disease without esophagitis; E11.22 Type 2 diabetes mellitus with diabetic chronic kidney disease; I12.9 Hypertensive chronic kidney disease with stage 1 through stage 4 chronic kidney disease, or unspecified chronic kidney disease; N18.9 Chronic kidney disease, unspecified; G62.9 Polyneuropathy, unspecified; Z79.4 Long term (current) use of insulin; E66.9 Obesity, unspecified; Z68.42 Body mass index [BMI] 45.0-49.9, adult
CPT/HCPCS: 46050; 36415; 36416; 80048; 82962; 85025; A4216; J0330; J1100; J2250; J2405; J2543; J2704; J3010; J3490; J7030; J9999

== ENCOUNTER → 2025-03-06 13:09 | Outpatient (BNVA) | payer MEDICARE, MEDICAID, SELFPAY | PROVIDERS: PCP Family Medicine; Visit Provider Student in an Organized Health Care Education/Training Program | DX: K61.0 Anal abscess (principal) | CPT/HCPCS: 99214 ==

== ENCOUNTER 2025-03-15 07:06 | Day surgery (SDC) | payer MEDICARE, MEDICAID, SELFPAY ==
[2025-03-15] VITALS (11 sets, daily range): BP systolic 115–168; BP diastolic 52–80; PULSE 58–71; RESP 16–20; TEMP 36.1–36.4; O2SAT 92–96
--- NOTE | 2025-03-15 07:46 | ANES.PREANE2 ---
Pre-Anesthetic Assessment Height/Weight: Height 1.93 m Temp Pulse Resp BP Pulse Ox O2 Del Method 97.5 F L 71 18 158/70 95 Room Air 03/15/25 07:35 03/15/25 07:35 03/15/25 07:35 03/15/25 07:35 03/15/25 07:35 03/15/25 07:35 Operation Date: 03/15/25 08:55 Proposed Procedures p Exam Under Anesthesia Anus/Rectum 84331 [id number], K61.0(Not Applicable) - Chapito Ríos MD s POSSIBLE Incision And Drainage Perianal Abscess(Not Applicable) - Chapito Ríos MD Familial anesthetic complications: None Was Beta Yee taken within 24 hours: N/A Was Clonidine taken within 24 hours: N/A Last intake: > 8 hrs Social No alcohol and No tobacco Exam alert, oriented x 3, clear to auscultation bilaterally and regular rate & rhythm Airway Mallampati: Class IV Dentition: full Comments: Comments: grade II airway on last intubation Pulmonary Sleep Apnea CV/HEM Congestive Heart Failure and Hypertension HIV Chronic Renal Failure (Dialysis T, R, S) Metabolic Diabetes Mellitus and Morbid Obesity Anesthetic Plan ASA status: 4 Anesthesia: General Risk of > 500 ml blood loss (7ml/kg in children): No Medications/Allergies Home Medications ?Medication ?Instructions ?Recorded ?Confirmed ?Last Taken ?Type cholecalciferol (vitamin D3) 125 125 mcg PO DAILY@06 11/19/20 03/14/25 03/14/25 History mcg (5,000 unit) capsule bictegravir 50 mg-emtricitabine 1 tab PO BEDTIME 07/15/21 03/14/25 03/13/25 History 200 mg-tenofovir alafenam 25 mg tablet (Biktarvy) loratadine 10 mg tablet 10 mg PO DAILY PRN Allergy Symptoms 03/07/22 03/14/25 03/14/25 History triamcinolone acetonide 0.1 % 1 applic topical DAILY PRN rash 04/23/22 03/14/25 Unknown History topical cream docusate sodium 100 mg capsule 100 mg PO BID PRN Constipation 12/18/22 03/14/25 03/14/25 History heparin (porcine) 1,000 unit/mL See Rx Instructions .Route .COMPLEX 12/18/22 03/14/25 03/11/25 History injection solution calcium acetate(phosphat bind) 667 1,334 mg (2 x 667 mg) PO TID #1 cap 10/23/23 03/14/25 03/14/25 Rx mg capsule losartan 100 mg tablet 100 mg PO DAILY #1 tab 10/23/23 03/14/25 02/21/25 Rx tamsulosin 0.4 mg capsule 0.8 mg (2 x 0.4 mg) PO QPM #180 05/04/24 03/14/25 03/14/25 Rx caps pen needle, diabetic 32 gauge x #100 ea 10/10/24 03/06/25 Unknown Rx 5/32 (BD Maylin 2nd Gen Pen Needle) insulin glargine 100 unit/mL (3 See Rx Instructions SUBCUT BID DM 10/17/24 03/14/25 03/14/25 Rx mL) subcutaneous pen (Lantus #45 mL Solostar U-100 Insulin) metoprolol tartrate 100 mg tablet 100 mg PO BID 11/07/24 03/15/25 03/15/25 History blood-glucose sensor (Dexcom G7 #3 ea 02/01/25 03/06/25 Unknown Rx Sensor device) blood-glucose,residential sales associate,cont #1 ea 02/01/25 03/06/25 Unknown Rx (Dexcom G7 Greek Professor) hydralazine 50 mg tablet 50 mg PO QID 02/22/25 03/14/25 03/15/25 History allopurinol 300 mg tablet 300 mg PO DAILY 03/14/25 03/14/25 03/14/25 History Allergies Allergy/AdvReac Type Severity Reaction Status Date / Time pioglitazone (From Actos) AdvReac Severe Unknown Verified 03/14/25 10:46 [facility] Anesthesia Medical History (Updated 03/06/25 @ 13:56 by Chapito Ríos MD) Enrolled in chronic care management PLEASE DO NOT REMOVE FROM ACTIVE Congestive cardiac failure (Unknown) Chronic ulcer of left foot with fat layer exposed Hypertension HIV disease Mixed hyperlipidemia BPH (benign prostatic hyperplasia) Diabetic peripheral neuropathy associated with type 2 diabetes mellitus Diabetes CKD (chronic kidney disease) (Unknown) per patient attributed to vancomycin toxicity, no kidney biopsy Surgical History (Updated 03/06/25 @ 13:17 by ANSLEY Michael) S/P hemodialysis catheter insertion Peritoneal dialysis catheter in situ (09/23/21) History of colonoscopy 2010 H/O foot surgery S/P ureteral stent placement Family History Father Hypertension Mother Hypertension Brother Cancer NON HODGKINS Other CAD (coronary artery disease) Diabetes Social History Smoking and tobacco/nicotine status: never used tobacco/nicotine Alcohol intake: never Marital status: Current occupational status: employed Data Anesthesia Cardiac Studies: Echocardiogram 12/18/22
--- NOTE | 2025-03-15 08:06 | W.PM.OPSUD ---
Surgery/Procedure H&P Update DATE OF PROCEDURE: March 15, 2025 DATE H&P PERFORMED: 03/06/25 H&P UPDATE INFORMATION: I have reviewed H&P completed within last 30 days, I have examined patient prior to procedure and No changes to prior documentation PLANNED PROCEDURE: Operation Date: 03/15/25 08:55 Proposed Procedures p Exam Under Anesthesia Anus/Rectum 27033 15169, K61.0(Not Applicable) - Chapito Ríos MD s POSSIBLE Incision And Drainage Perianal Abscess(Not Applicable) - Chapito Ríos MD
[2025-03-15] MEDS: ceFAZolin 3,000 MG in sodium chloride 0.9% (plus) 100 ML 200 MG IV (08:40)
--- NOTE | 2025-03-15 09:19 | P.OP_ITS ---
Operative Report Date of procedure: March 15, 2025 Pre-op diagnosis: Perianal abscess Post-op diagnosis: same Post-op findings: Small perianal abscess anteriorly incised and drained. Procedure done: Exam under anesthesia of the rectum. Incision and drainage of small perianal abscess. Implants: N/A Specimens removed/disposition: N/A Pathology: N/A Surgeon: Chapito Ríos MD Staffing And Scheduling Coordinator: N/A Anesthesia: General Estimated blood loss (mL): 5 Complications: N/A Findings: Small perianal abscess anteriorly at 6 o'clock. Evacuated 5 cc of fluid. Condition: stable Disposition: same day Brief History: 59-year-old male who has a history of recurrent perianal abscesses. Most rec ently treated with antibiotics. Came back with a small perianal abscess at 6:00 anteriorly. Discussed risk and benefits and patient agreed to proceed with exam under anesthesia of the rectum, incision and drainage of perianal abscess. Procedure: Patient was wheeled in the OR room and placed on the operating table in left lateral decubitus position. General anesthesia was administered. The perineum was inspected prepped and draped in usual sterile fashion. Timeout was performed. All present were in agreement. Predental nerve block using 10 cc of 1% lidocaine 0.5 cc bupivacaine was carried out. A cruciate incision was carried out at the point of maximal fluctuance in the anterior midline at 6:00. Hemostats were used to probe the abscess cavity and about 5 cc of fluid were evacuated, mostly bloody in nature. Abscess cavity was probed and loculations were broken. Abscess cavity was then irrigated with normal saline. Quarter- inch iodoform gauze was then packed into the wound. Sterile dressings were applied. Patient tolerated the procedure well.
[2025-03-15] MEDS: BUPivacaine 0.25% INJ 30 mL 10 ML INJECTION (09:20)
[2025-03-15] MEDS: lidocaine-epi 1% 20 mL INJ 10 ML INJECTION (09:20)
[2025-03-15] MEDS: oxyCODONE 5 mg IR Tab/Cap PO (10:34)
--- NOTE | 2025-03-15 11:05 | ANE.PACU2 ---
Inpatient post-anesthesia follow up: Airway intact: Yes Vital signs: Temperature 97.1 F Pulse Rate 71 Respiratory Rate 17 Blood Pressure 123/68 Pulse Oximetry 93 Oxygen Delivery Me thod Room Air Oxygen Flow Rate Fraction of Inspir ed Oxygen Hydration adequate: Yes Nausea and vomiting: No Pain level: 1 Mental status: Baseline
== END 2025-03-15 11:05 | disposition home or self-care (01) ==
PROVIDERS: PCP Family Medicine; Visit Provider Student in an Organized Health Care Education/Training Program
PROC: 0DJDXZZ Inspection of Lower Intestinal Tract, External Approach (ICD-10-PCS; CPT 46050; principal; 2025-03-15 08:45)
PROC: (CPT 46050; 2025-03-15 08:45)
DX: K61.0 Anal abscess (principal); G47.30 Sleep apnea, unspecified; I13.0 Hypertensive heart and chronic kidney disease with heart failure and stage 1 through stage 4 chronic kidney disease, or unspecified chronic kidney disease; E11.22 Type 2 diabetes mellitus with diabetic chronic kidney disease; N18.9 Chronic kidney disease, unspecified; I50.9 Heart failure, unspecified; Z79.4 Long term (current) use of insulin; E66.01 Morbid (severe) obesity due to excess calories; Z99.2 Dependence on renal dialysis
CPT/HCPCS: 46050; 36416; 82962; J0131; J0690; J1100; J2371; J2405; J2704; J3010; J3490; J7030; J9999

== ENCOUNTER → 2025-03-24 08:20 | Outpatient (BNVA) | payer MEDICARE, MEDICAID, SELFPAY | PROVIDERS: PCP Family Medicine; Visit Provider Student in an Organized Health Care Education/Training Program | DX: Z98.890 Other specified postprocedural states (principal) | CPT/HCPCS: 99213 ==

== ENCOUNTER → 2025-04-10 13:13 | Outpatient (BNVA) | payer MEDICARE, MEDICAID, SELFPAY | PROVIDERS: PCP Family Medicine; Visit Provider Thoracic Surgery (Cardiothoracic Vascular Surgery) | DX: I96 Gangrene, not elsewhere classified (principal); L98.411 Non-pressure chronic ulcer of buttock limited to breakdown of skin; L98.491 Non-pressure chronic ulcer of skin of other sites limited to breakdown of skin | CPT/HCPCS: 97597; 99203 ==

== ENCOUNTER → 2025-04-17 13:42 | Outpatient (BNVA) | payer MEDICARE, MEDICAID, SELFPAY | PROVIDERS: PCP Family Medicine; Visit Provider Thoracic Surgery (Cardiothoracic Vascular Surgery) | DX: I96 Gangrene, not elsewhere classified (principal); L98.411 Non-pressure chronic ulcer of buttock limited to breakdown of skin; L98.491 Non-pressure chronic ulcer of skin of other sites limited to breakdown of skin | CPT/HCPCS: 97597 ==

== ENCOUNTER → 2025-05-01 11:31 | Outpatient (BNVA) | payer MEDICARE, MEDICAID, SELFPAY | PROVIDERS: PCP Family Medicine; Visit Provider Podiatrist Foot & Ankle Surgery | DX: E11.42 Type 2 diabetes mellitus with diabetic polyneuropathy (principal); L60.3 Nail dystrophy; L84 Corns and callosities; E11.8 Type 2 diabetes mellitus with unspecified complications; N18.9 Chronic kidney disease, unspecified; I89.0 Lymphedema, not elsewhere classified; N18.6 End stage renal disease; Z79.4 Long term (current) use of insulin | CPT/HCPCS: 11056; 11721 ==

== ENCOUNTER → 2025-05-12 10:57 | Outpatient (BNVA) | payer MEDICARE, MEDICAID, SELFPAY | PROVIDERS: PCP Family Medicine; Visit Provider Thoracic Surgery (Cardiothoracic Vascular Surgery) | DX: Z09 Encounter for follow-up examination after completed treatment for conditions other than malignant neoplasm (principal); Z87.2 Personal history of diseases of the skin and subcutaneous tissue | CPT/HCPCS: 99212 ==

== ENCOUNTER → 2025-07-19 09:56 | Outpatient (BNVA) | payer MEDICARE, MEDICAID, SELFPAY | PROVIDERS: PCP Family Medicine; Visit Provider Podiatrist Foot & Ankle Surgery | DX: E11.42 Type 2 diabetes mellitus with diabetic polyneuropathy (principal); L60.3 Nail dystrophy; L84 Corns and callosities; E11.8 Type 2 diabetes mellitus with unspecified complications; N18.9 Chronic kidney disease, unspecified; I89.0 Lymphedema, not elsewhere classified; N18.6 End stage renal disease; Z79.4 Long term (current) use of insulin | CPT/HCPCS: 11056; 11721 ==